=== PATIENT | female | born 1950 | race Caucasian/White ===

== ENCOUNTER 2019-06-27 10:02 | Outpatient (CLI) | payer MEDICARE, SELFPAY ==
--- NOTE | 2019-06-27 10:12 | MR_ITS ---
WS: [id number] MRI CERVICAL SPINE HISTORY: Neck pain COMPARISON: 06/27/2018 Mild RIGHT convex curvature the cervical spine. Mild disc desiccation and small osteophytes throughout the cervical spine. Signal within the cord is normal. Craniocervical junction, C1 and C2 relationship, odontoid process and soft tissues are normal. C2-C3: Normal. C3-C4: Very shallow central disc protrusion. No stenosis. C4-C5: Mild osteophytic ridging and annular disc bulging without stenosis. C5-C6: Annular disc bulging and osteophytic ridging and facet disease. There is a central shallow dis c protrusion. Mild LEFT foraminal stenosis. C6-C7: Mild osteophytic ridging and annular disc bulging. Moderate LEFT foraminal stenosis due to dis c osteophyte disease. There is a very shallow central disc protrusion. C7-T1: Mild annular disc bulging. Paraspinal soft tissue are normal. MR/MR cervical spin wo con* [id number] IMPRESSION: 1. Mild RIGHT convex curvature cervical spine. 2. Mild disc disease and osteophytosis throughout the cervical spine. 3. Moderate LEFT foraminal stenosis at C6-7 due to disc osteophyte disease. 4. Mild LEFT foraminal stenosis at C5-6. 5. Shallow central disc protrusion at C6-7 and C3-4. 6. Spondylitic changes have not significantly changed or progressed since the prior study.
--- NOTE | 2019-06-27 11:00 | XR_ITS ---
WS: [id number] Lateral views of cervical spine in the flexion, extension and neutral positions. 06/27/2019 Clinical Data: Neck pain Comparison: Lateral cervical spine, 06/27/2018. Findings: There is degenerative disc narrowing C5-C6 and C6-C7. There is anterior osteophyte formation from C4 through C7. There is posterior osteophyte formation at C5-C6 and C6-C7. In the neutral and flexion po sitions are is no subluxation or limitation of motion. On extension there is a slight posterior sublu xation of C3 on C4 and C4 on C5 of 0.2 cm which has not changed. No prevertebral soft tissue swelling is noted. No compression fractures are seen. XR/XR cervical spine fl/ex [id number] Impression: 1. Minimal posterior subluxation of 0.2 cm of C3 on C4 and C4 on C5 of 0.2 cm u nchanged. 2. Negative for limitation of motion on flexion or extension. 3. Osteoarthritic change and degenerative disc disease of the lower cervical sp ine.
--- NOTE | 2019-06-27 11:30 | XR_ITS ---
WS: [id number] Lumbar spine with flexion, extension, and neutral lateral, 06/27/2019 Clinical Data: Low back pain Comparison: Lumbar spine, 12/14/2018. Findings: No compression fractures are seen. No disc space narrowing is seen. Is limitation of motion on flexion and extension. No subluxation occurs on flexion or extension. Ther e is osteoarthritic change of the lumbar vertebral bodies from L1 through L4. There is calcification of the wall of the abdominal aorta but no aneurysm. There is an orthopedic screw which fixes the marielle ficial right acetabulum into the pelvis. There are clips in the upper abdomen from a cholecystectomy. XR/XR lumbar spine f/e only [id number] Impression: 1. Limitation motion on flexion and extension. 2. No subluxation on flexion or extension. 3. Osteoarthritis of all the lumbar vertebral bodies.
== END 2019-06-27 10:03 | disposition home or self-care (01) ==
LOC: RADWPI 10:04
PROVIDERS: Family Provider Internal Medicine; PCP Internal Medicine; Visit Provider Licensed Practical Nurse
DX: M54.5 Low back pain (principal); M47.816 Spondylosis without myelopathy or radiculopathy, lumbar region; M50.90 Cervical disc disorder, unspecified, unspecified cervical region; M48.02 Spinal stenosis, cervical region; M50.223 Other cervical disc displacement at C6-C7 level
CPT/HCPCS: 72040; 72120; 72141

== ENCOUNTER 2019-07-11 15:39 | Emergency (ER) | payer MEDICARE, SELFPAY ==
[2019-07-11 16:06] VITALS: BP 123/66; PULSE 70; RESP 18; TEMP 36.8; O2SAT 98; BMI 29.5
--- NOTE | 2019-07-11 16:14 | XR_ITS ---
WS: [id number] CHEST XRAY TECHNIQUE: Portable chest. CLINICAL INFORMATION: chest pain COMPARISON: January 21, 2018 FINDINGS: Heart: Normal cardiac silhouette. Lungs: Lungs are clear. No consolidation or pleural effusion. No acute pulmonary infiltrates. Bones: Chronic posterior rib fractures with callus formation. XR/XR chest 1V portable [id number] IMPRESSION: 1. No acute pulmonary infiltrates. Chronic emphysematous changes. 2. Chronic mid left posterior rib fractures with callus formation.
--- NOTE | 2019-07-11 16:15 | ECG_ITS ---
Measurements Intervals [place] Rate: 64 P: -15 HI: 142 QRS: -2 QRSD: 77 T: 11 QT: 409 QTc: 425 SINUS RHYTHM POSSIBLE INFERIOR MYOCARDIAL INFARCTION , PROBABLY OLD [30 ms Q WAVE IN II/aVF] Compared to ECG 01/21/2018 15:38:58 Myocardial infarct finding now present Electronically Signed On 07-11-2019 17:06:45 CDT by Elsie Keane M.D. [id number] f
--- NOTE | 2019-07-11 16:18 | ED_ITS ---
Documented by User: SOFI Barker 07/11/19 16:36 HPI - General Adult General: Chief complaint: General Medical Stated complaint: fever, epigastric pain Time Seen by Provider: 07/11/19 16:14 History of Present Illness: HPI narrative: Patient is a 69-year-old female with a past medical history of prior [place], GERD, CAD, hypertension, and hyperlipidemia that presents to the ED with epigastric/chest pain. Last night patient started feeling unwell and developed a low-grade fever. She went to bed and when she woke up she started having chest pain. Chest pain started while she was laying in her bed before she got up and moved around. It has not improved throughout the day or with rest. Patient took a Nitroglycerin this morning and that has not improved chest pain either. She did not take an aspirin today. Patient has GERD as well but states that this is not like her GERD symptoms. She states she is developed some shortness of breath today as well and also a dry cough. Denies any travel outside of [place] in the last month and denies any contact with known COVID positive patient. Associated symptoms: Reports chest pain; Deny dyspnea, headache(s), nausea, rash, palpitations or vomiting Review of Systems General: Reports: 10 or more systems reviewed and unremarkable except in HPI and below Const: Reports: fever; Denies: chills or fatigue Eyes: Denies: change in vision or eye discomfort ENMT: Denies: throat pain, painful swallowing, nasal discharge or nasal congestion Card: Reports: chest pain; Denies: palpitations, edema, swelling of feet/ankles, shortness of breath on exertion or shortness of breath when lying down Resp: Reports: non-productive cough; Denies: shortness of breath or productive cough GI: Denies: abdominal pain, nausea, vomiting, diarrhea, constipation or blood in stool : Denies: flank pain, painful urination or blood in urine Musc: Denies: neck pain, back pain or extremity swelling Skin/Breast: Denies: rash or new lesion Neuro: Denies: headache, numbness in extremities or weakness in extremities [facility] ED PFSH: Medical History CAD (coronary artery disease) Cervical disc disorder with myelopathy of mid-cervical region Essential (primary) hypertension GERD (gastroesophageal reflux disease) H/O malignant neoplasm of breast H/O methicillin resistant Staphylococcus aureus History of pulmonary embolism Hyperlipidemia Hypothyroidism, unspecified Intervertebral disc disorder with radiculopathy of lumbar region MARGARITA (obstructive sleep apnea) Spondylolisthesis, cervical region Surgical History History of repair of hiatal hernia S/P cataract extraction S/P cholecystectomy S/P hysterectomy 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 She does not appear to be in any acute respiratory distress or pain. Const: COMMON NORMALS: oriented x3 HENMT: COMMON NORMALS: normocephalic HEAD & SCALP: normocephalic MOUTH: oral and palatal mucosa normal THROAT: posterior oropharynx normal and uvula midline Eye: COMMON NORMALS: PERRL PUPIL: Yes PERRL Neck/C-Spine: COMMON NORMALS: supple GENERAL: Yes normal visual inspection Lymph: LYMPHATIC: no lymphadenopathy noted (no cervical lymphadenopathy noted) Resp: COMMON NORMALS: normal respiratory effort, no retractions, no use of accessory muscles and clear to auscultation bilaterally EFFORT & INSPECTION: Yes able to speak in complete sentences, No respiratory distress and No labored AUSCULTATION: clear to auscultation bilaterally Cardio: COMMON NORMALS: regular rate, regular rhythm, S1 normal heart sound, S2 normal heart sound, no gallops, no clicks, no murmurs and peripheral pulses 2+ throughout RATE: regular rate RHYTHM: regular rhythm HEART SOUNDS: S1 normal and S2 normal PERIPHERAL PULSES: pulses 2+ throughout GI: COMMON NORMALS: normal to inspection, nondistended, normoactive bowel sounds, soft to palpation, non-tender and no masses PALPATION: Yes soft : COMMON NORMALS: Yes no CVA tenderness BLADDER/KIDNEY EXAM: Yes no CVA tenderness Back/Pelvis: COMMON NORMALS: no CVA tenderness Extremity: COMMON NORMALS: normal to inspection and normal capillary refill Neuro: COMMON NORMALS: oriented x3 and moves all extremities Skin: COMMON NORMALS: no rashes or lesions noted GENERAL SKIN EXAM: no rashes or lesions noted and dry skin Course Vital Signs: Vital signs: Vital Signs Temperature 98.2 F 07/11/19 16:06 Pulse Rate 64 07/11/19 17:44 Respiratory Rate 18 07/11/19 16:06 Blood Pressure 110/76 07/11/19 17:44 Pulse Oximetry 93 07/11/19 17:44 [facility] - General Adult Lab Data: Labs: Lab Results 07/11/19 07/11/19 07/11/19 Range/Units 16:39 16:39 16:39 WBC 5.3 (4.0-10.0) 10^3/ uL RBC 3.85 L (4.1-5.3) 10^6/u L Hgb 11.9 (11.5-15.3) g/dL Hct 38.6 (37.0-47.0) % MCV 100.3 H (81-99) fL MCH 30.9 (28.0-34.0) pg MCHC 30.8 (30.0-36.0) g/dL RDW 13.0 (12.1-15.1) % Plt Count 201 (130-400) 10^3/c mm MPV 11.2 H (7.4-10.4) fL Neut % (Auto) 52.9 % Lymph % (Auto) 36.7 % Mills % (Auto) 7.9 % Eos % (Auto) 1.5 % Baso % (Auto) 0.8 % Neut # (Auto) 2.8 (1.8-7.7) 10^3/u L Lymph # (Auto) 2.0 (0.8-4.8) 10^3/u L Mills # (Auto) 0.4 (0.2-0.9) 10^3/u L Eos # (Auto) 0.1 (0.0-0.8) 10^3/u L Baso # (Auto) 0.0 (0.0-0.1) 10^3/u L Nucleated RBC % (a uto) 0 % Nucleated RBCs # 0.0 /100WBC Sodium 138 (136-145) mmol/L Potassium 4.8 (3.5-5.1) mmol/L Chloride 101 (98-107) mmol/L Carbon Dioxide 28 (22-29) mmol/L Anion Gap 13.8 (5-19) BUN 15 (8-23) mg/dL Creatinine 1.1 H (0.5-0.9) mg/dL GFR Calculation 49.4 L (90-130) mL/min Glucose 103 (65-115) mg/dL Calculated Osmolal ity 283 L (285-295) mOsm/k g Calcium 9.3 (8.5-10.5) mg/dL Total Bilirubin 0.5 (0.15-1.2) mg/dL AST 19 (0-32) U/L ALT 12 (0-33) U/L Alkaline Phosphata se 73 (35-105) IU/L Troponin T Baselin e 10 (0-10) ng/mL Troponin T 120 Min [place] (0-10) ng/mL Total Protein 6.9 (6.6-8.7) g/dL Albumin 4.0 (3.5-5.2) g/dL Globulin 2.9 (1.3-4.6) g/dL Influenza Type A A g (Negative) Influenza Type B A g (Negative) 07/11/19 07/11/19 Range/Units 16:54 18:31 WBC (4.0-10.0) 10^3/ uL RBC (4.1-5.3) 10^6/u L Hgb (11.5-15.3) g/dL Hct (37.0-47.0) % MCV (81-99) fL MCH (28.0-34.0) pg MCHC (30.0-36.0) g/dL RDW (12.1-15.1) % Plt Count (130-400) 10^3/c mm MPV (7.4-10.4) fL Neut % (Auto) % Lymph % (Auto) % Mills % (Auto) % Eos % (Auto) % Baso % (Auto) % Neut # (Auto) (1.8-7.7) 10^3/u L Lymph # (Auto) (0.8-4.8) 10^3/u L Mills # (Auto) (0.2-0.9) 10^3/u L Eos # (Auto) (0.0-0.8) 10^3/u L Baso # (Auto) (0.0-0.1) 10^3/u L Nucleated RBC % (a uto) % Nucleated RBCs # /100WBC Sodium (136-145) mmol/L Potassium (3.5-5.1) mmol/L Chloride (98-107) mmol/L Carbon Dioxide (22-29) mmol/L Anion Gap (5-19) BUN (8-23) mg/dL Creatinine (0.5-0.9) mg/dL GFR Calculation (90-130) mL/min Glucose (65-115) mg/dL Calculated Osmolal ity (285-295) mOsm/k g Calcium (8.5-10.5) mg/dL Total Bilirubin (0.15-1.2) mg/dL AST (0-32) U/L ALT (0-33) U/L Alkaline Phosphata se (35-105) IU/L Troponin T Baselin e (0-10) ng/mL Troponin T 120 [address] [place] 8.04 (0-10) ng/mL Total Protein (6.6-8.7) g/dL Albumin (3.5-5.2) g/dL Globulin (1.3-4.6) g/dL Influenza Type A A g Negative (Negative) Influenza Type B A g Negative (Negative) EKG Data^: EKG 2: Computer generated interpretation: Chest X-Ray 07/11/19 16:14 IMPRESSION: 1. No acute pulmonary infiltrates. Chronic emphysematous changes. 2. Chronic mid left posterior rib fractures with callus formation. Discharge Plan Discharge Patient Disposition: Home, Self-Care Clinical Impression: Colicky epigastric pain Condition: Stable Prescriptions: No Action cholecalciferol (vitamin D3) 50,000 unit capsule 50,000 unit PO ONCE RF: 0 clopidogrel [Plavix] 75 mg tablet 75 mg PO ONCE RF: 0 pramipexole 0.25 mg tablet 0.25 mg PO .at bedtime RF: 0 pantoprazole [Protonix] 40 mg tablet,delayed release (DR/EC) 40 mg PO BID RF: 0 loratadine [Allergy Relief (loratadine)] 10 mg tablet 10 mg PO ONCE RF: 0 levothyroxine 25 mcg capsule 25 mcg PO ONCE RF: 0 duloxetine [Cymbalta] 30 mg capsule,delayed release(DR/EC) 30 mg PO ONCE RF: 0 duloxetine [Cymbalta] 60 mg capsule,delayed release(DR/EC) 60 mg PO ONCE RF: 0 cholestyramine (with sugar) 4 gram powder 4 gm PO ONCE RF: 0 metoprolol succinate 25 mg capsule,sprinkle,ER 24hr 25 mg PO ONCE RF: 0 memantine [Namenda] 10 mg tablet 10 mg PO ONCE RF: 0 nitroglycerin [Nitrostat] 0.4 mg tablet, sublingual 0.4 mg SUBLINGUAL Q5M PRNRF: 0 Prevnar 13 (PF) 0.5 mL syringe 0.5 ml IM ONCE Qty: 1 RF: 0 amitriptyline 10 mg tablet 10 mg PO QDAY Qty: 90 RF: 3 mupirocin 2 % ointment See Rx Instructions .ROUTE BID Qty: 22 RF: 0 albuterol sulfate [ProAir HFA] 90 mcg/actuation HFA aerosol inhaler 2 puff INHALATION Q4H PRN (Reason: shortness of breath or wheezing) Qty: 18 RF: 0 simvastatin 20 mg tablet 20 mg PO ONCE Qty: 90 RF: 3 isosorbide mononitrate 30 mg tablet extended release 24 hr 15 mg PO BID 90 Days Qty: 90 RF: 3 trazodone 50 mg tablet 150 mg PO .at bedtime Qty: 90 RF: 0 buspirone 10 mg tablet 10 mg PO BID PRN (Reason: anxiety) Qty: 60 RF: 3 Discharge Orders: Discharge Order (Routine); Ordered 07/11/19 Ordered By: Delfino Martin Referrals: Mitchel Hamilton MD [Primary Care Provider] - Discharge Diet: Advance as tolerated Discharge Activity: Resume usual activity Patient Instructions: Gastroesophageal Reflux Disease (ED), Esophageal Spasm (ED) Activity Restrictions/Additional Instructions: Follow-up with medical provider as directed. Take medications as prescribed. Double Protonix dosage for the next few days return to the ER or your medical provider if condition worsens. Please read and understand discharge instructions. If any questions ask please. Coding Level of Care Code ED Receipt And Report Clerk for Chg Fwd Exam Comprehensive Documented by User: EDDIE Alcantara 07/11/19 19:01 HPI - General Adult General: Chief complaint: General Medical Stated complaint: fever, epigastric pain Time Seen by Provider: 07/11/19 16:14 PFSH ED PFSH: Medical History CAD (coronary artery disease) Cervical disc disorder with myelopathy of mid-cervical region Essential (primary) hypertension GERD (gastroesophageal reflux disease) H/O malignant neoplasm of breast H/O methicillin resistant Staphylococcus aureus History of pulmonary embolism Hyperlipidemia Hypothyroidism, unspecified Intervertebral disc disorder with radiculopathy of lumbar region MARGARITA (obstructive sleep apnea) Spondylolisthesis, cervical region Surgical History History of repair of hiatal hernia S/P cataract extraction S/P cholecystectomy S/P hysterectomy 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 S/P sclerotherapy of varicose veins Family History Mother CAD (coronary artery disease) Diabetes Hypertension Myocardial infarct Social History Smoking and tobacco status: never smoked Alcohol intake: never Household members: spouse Marital status: Current occupational status: retired History of recent travel: No Course Vital Signs: Vital signs: Vital Signs Temperature 98.2 F 07/11/19 16:06 Pulse Rate 64 07/11/19 17:44 Respiratory Rate 18 07/11/19 16:06 Blood Pressure 110/76 07/11/19 17:44 Pulse Oximetry 93 07/11/19 17:44 MDM - General Adult Lab Data: Labs: Lab Results 07/11/19 07/11/19 07/11/19 Range/Units 16:39 16:39 16:39 WBC 5.3 (4.0-10.0) 10^3/ uL RBC 3.85 L (4.1-5.3) 10^6/u L Hgb 11.9 (11.5-15.3) g/dL Hct 38.6 (37.0-47.0) % MCV 100.3 H (81-99) fL MCH 30.9 (28.0-34.0) pg MCHC 30.8 (30.0-36.0) g/dL RDW 13.0 (12.1-15.1) % Plt Count 201 (130-400) 10^3/c mm MPV 11.2 H (7.4-10.4) fL Neut % (Auto) 52.9 % Lymph % (Auto) 36.7 % Mills % (Auto) 7.9 % Eos % (Auto) 1.5 % Baso % (Auto) 0.8 % Neut # (Auto) 2.8 (1.8-7.7) 10^3/u L Lymph # (Auto) 2.0 (0.8-4.8) 10^3/u L Mills # (Auto) 0.4 (0.2-0.9) 10^3/u L Eos # (Auto) 0.1 (0.0-0.8) 10^3/u L Baso # (Auto) 0.0 (0.0-0.1) 10^3/u L Nucleated RBC % (a uto) 0 % Nucleated RBCs # 0.0 /100WBC Sodium 138 (136-145) mmol/L Potassium 4.8 (3.5-5.1) mmol/L Chloride 101 (98-107) mmol/L Carbon Dioxide 28 (22-29) mmol/L Anion Gap 13.8 (5-19) BUN 15 (8-23) mg/dL Creatinine 1.1 H (0.5-0.9) mg/dL GFR Calculation 49.4 L (90-130) mL/min Glucose 103 (65-115) mg/dL Calculated Osmolal ity 283 L (285-295) mOsm/k g Calcium 9.3 (8.5-10.5) mg/dL Total Bilirubin 0.5 (0.15-1.2) mg/dL AST 19 (0-32) U/L ALT 12 (0-33) U/L Alkaline Phosphata se 73 (35-105) IU/L Troponin T Baselin e 10 (0-10) ng/mL Troponin T 120 Min [place] (0-10) ng/mL Total Protein 6.9 (6.6-8.7) g/dL Albumin 4.0 (3.5-5.2) g/dL Globulin 2.9 (1.3-4.6) g/dL Influenza Type A A g (Negative) Influenza Type B A g (Negative) 07/11/19 07/11/19 Range/Units 16:54 18:31 WBC (4.0-10.0) 10^3/ uL RBC (4.1-5.3) 10^6/u L Hgb (11.5-15.3) g/dL Hct (37.0-47.0) % MCV (81-99) fL MCH (28.0-34.0) pg MCHC (30.0-36.0) g/dL RDW (12.1-15.1) % Plt Count (130-400) 10^3/c mm MPV (7.4-10.4) fL Neut % (Auto) % Lymph % (Auto) % Mills % (Auto) % Eos % (Auto) % Baso % (Auto) % Neut # (Auto) (1.8-7.7) 10^3/u L Lymph # (Auto) (0.8-4.8) 10^3/u L Mills # (Auto) (0.2-0.9) 10^3/u L Eos # (Auto) (0.0-0.8) 10^3/u L Baso # (Auto) (0.0-0.1) 10^3/u L Nucleated RBC % (a uto) % Nucleated RBCs # /100WBC Sodium (136-145) mmol/L Potassium (3.5-5.1) mmol/L Chloride (98-107) mmol/L Carbon Dioxide (22-29) mmol/L Anion Gap (5-19) BUN (8-23) mg/dL Creatinine (0.5-0.9) mg/dL GFR Calculation (90-130) mL/min Glucose (65-115) mg/dL Calculated Osmolal ity (285-295) mOsm/k g Calcium (8.5-10.5) mg/dL Total Bilirubin (0.15-1.2) mg/dL AST (0-32) U/L ALT (0-33) U/L Alkaline Phosphata se (35-105) IU/L Troponin T Baselin e (0-10) ng/mL Troponin T 120 [address] [place] 8.04 (0-10) ng/mL Total Protein (6.6-8.7) g/dL Albumin (3.5-5.2) g/dL Globulin (1.3-4.6) g/dL Influenza Type A A g Negative (Negative) Influenza Type B A g Negative (Negative) EKG Data^: EKG 2: EKG interpretation date: 07/11/19 EKG interpretation time: 19:00 Interpretation: Normal sinus rhythm 59 bpm could be a sinus bradycardia but she was 65 earlier [place] interval 144 ms QRS duration [address] segments look normal Computer generated interpretation: Chest X-Ray 07/11/19 16:14 IMPRESSION: 1. No acute pulmonary infiltrates. Chronic emphysematous changes. 2. Chronic mid left posterior rib fractures with callus formation. Discharge Plan Discharge Patient Disposition: Home, Self-Care Clinical Impression: Colicky epigastric pain Condition: Stable Prescriptions: No Action cholecalciferol (vitamin D3) 50,000 unit capsule 50,000 unit PO ONCE RF: 0 clopidogrel [Plavix] 75 mg tablet 75 mg PO ONCE RF: 0 pramipexole 0.25 mg tablet 0.25 mg PO .at bedtime RF: 0 pantoprazole [Protonix] 40 mg tablet,delayed release (DR/EC) 40 mg PO BID RF: 0 loratadine [Allergy Relief (loratadine)] 10 mg tablet 10 mg PO ONCE RF: 0 levothyroxine 25 mcg capsule 25 mcg PO ONCE RF: 0 duloxetine [Cymbalta] 30 mg capsule,delayed release(DR/EC) 30 mg PO ONCE RF: 0 duloxetine [Cymbalta] 60 mg capsule,delayed release(DR/EC) 60 mg PO ONCE RF: 0 cholestyramine (with sugar) 4 gram powder 4 gm PO ONCE RF: 0 metoprolol succinate 25 mg capsule,sprinkle,ER 24hr 25 mg PO ONCE RF: 0 memantine [Namenda] 10 mg tablet 10 mg PO ONCE RF: 0 nitroglycerin [Nitrostat] 0.4 mg tablet, sublingual 0.4 mg SUBLINGUAL Q5M PRNRF: 0 Prevnar 13 (PF) 0.5 mL syringe 0.5 ml IM ONCE Qty: 1 RF: 0 amitriptyline 10 mg tablet 10 mg PO QDAY Qty: 90 RF: 3 mupirocin 2 % ointment See Rx Instructions .ROUTE BID Qty: 22 RF: 0 albuterol sulfate [ProAir HFA] 90 mcg/actuation HFA aerosol inhaler 2 puff INHALATION Q4H PRN (Reason: shortness of breath or wheezing) Qty: 18 RF: 0 simvastatin 20 mg tablet 20 mg PO ONCE Qty: 90 RF: 3 isosorbide mononitrate 30 mg tablet extended release 24 hr 15 mg PO BID 90 Days Qty: 90 RF: 3 trazodone 50 mg tablet 150 mg PO .at bedtime Qty: 90 RF: 0 buspirone 10 mg tablet 10 mg PO BID PRN (Reason: anxiety) Qty: 60 RF: 3 Discharge Orders: Discharge Order (Routine); Ordered 07/11/19 Ordered By: Delfino Martin Referrals: Mitchel Hamilton MD [Primary Care Provider] - Discharge Diet: Advance as tolerated Discharge Activity: Resume usual activity Patient Instructions: Gastroesophageal Reflux Disease (ED), Esophageal Spasm (ED) Activity Restrictions/Additional Instructions: Follow-up with medical provider as directed. Take medications as prescribed. Double Protonix dosage for the next few days return to the ER or your medical provider if condition worsens. Please read and understand discharge instructions. If any questions ask please. Coding Level of Care Code ED Receipt And Report Clerk for Mary Kayg Fwd Exam Comprehensive
--- NOTE | 2019-07-11 16:47 | PC.NURSE ---
portable chest xray at bedside
[2019-07-11 16:48] LABS: Basophils % 0.8 %; Eosinophils # 0.1 10^3/uL (0.0-0.8); Eosinophils % 1.5 %; Hematocrit 38.6 % (37.0-47.0); Hemoglobin 11.9 g/dL (11.5-15.3); Lymphocytes % 36.7 %; Mean Corpuscular HGB Conc 30.8 g/dL (30.0-36.0); Mean Corpuscular Hemoglobin 30.9 pg (28.0-34.0); Mean Corpuscular Volume 100.3 fL (81-99); Mean Platelet Volume 11.2 fL (7.4-10.4); Monocytes # 0.4 10^3/uL (0.2-0.9); Monocytes % 7.9 %; Neutrophils # 2.8 10^3/uL (1.8-7.7); Neutrophils % 52.9 %; Nucleated Red Blood Cells % 0 %; Platelet Count 201 10^3/cmm (130-400); Red Blood Count 3.85 10^6/uL (4.1-5.3); White Blood Count 5.3 10^3/uL (4.0-10.0)
[2019-07-11] MEDS: aspirin 81 mg Chew Tablet 324 MG PO (16:53)
[2019-07-11 17:02] VITALS: BP 108/65; PULSE 66; O2SAT 93
[2019-07-11 17:05] LABS: Alanine Aminotransferase 12 U/L (0-33); Alkaline Phosphatase 73 IU/L (35-105); Anion Gap 13.8 (5-19); Aspartate Amino Transferase 19 U/L (0-32); Blood Urea Nitrogen 15 mg/dL (8-23); Calcium 9.3 mg/dL (8.5-10.5); Carbon Dioxide 28 mmol/L (22-29); Chloride 101 mmol/L (98-107); Globulin 2.9 g/dL (1.3-4.6); Glomerular Filtration Rate 49.4 mL/min (90-130); Glucose 103 mg/dL (65-115); Osmolality Calculated 283 mOsm/kg (285-295); Potassium 4.8 mmol/L (3.5-5.1); Sodium 138 mmol/L (136-145); Total Bilirubin 0.5 mg/dL (0.15-1.2); Total Protein 6.9 g/dL (6.6-8.7)
[2019-07-11 17:07] LABS: Troponin(5th) Baseline 10 ng/mL (0-10)
[2019-07-11 17:44] VITALS: BP 110/76; PULSE 64; O2SAT 93
[2019-07-11 17:56] LABS: Influenza A by IFA Negative (Negative); Influenza B by IFA Negative (Negative)
--- NOTE | 2019-07-11 18:15 | ECG_ITS ---
Measurements Intervals [place] Rate: 59 P: 5 [place]: 144 QRS: 26 QRSD: 81 T: 40 QT: 434 QTc: 432 SINUS BRADYCARDIA INTERPRETATION BASED ON A DEFAULT AGE OF 40 YEARS Compared to ECG 07/11/2019 16:46:39 Sinus rhythm no longer present Myocardial infarct finding no longer present Electronically Signed On 07-12-2019 10:02:21 CDT by Hema Anthony M.D. [id number]
[2019-07-11 18:54] LABS: Troponin 5 2HR 8.04 ng/mL (0-10)
[2019-07-11 19:05] LABS: Troponin 5 2HR Delta -1.96 ABS# (0-10)
[2019-07-11 19:09] VITALS: BP 140/94; PULSE 66; RESP 18; O2SAT 96
== END 2019-07-11 19:11 | disposition home or self-care (01) ==
PROVIDERS: Physician Assistant; Emergency Provider Nurse Practitioner Family; Family Provider Internal Medicine; PCP Internal Medicine
DX: K21.9 Gastro-esophageal reflux disease without esophagitis (principal); K22.4 Dyskinesia of esophagus; I25.10 Atherosclerotic heart disease of native coronary artery without angina pectoris; I10 Essential (primary) hypertension; E78.5 Hyperlipidemia, unspecified; E03.9 Hypothyroidism, unspecified; G47.33 Obstructive sleep apnea (adult) (pediatric); Z90.710 Acquired absence of both cervix and uterus; Z90.49 Acquired absence of other specified parts of digestive tract; Z86.14 Personal history of Methicillin resistant Staphylococcus aureus infection; Z85.3 Personal history of malignant neoplasm of breast
CPT/HCPCS: 12345; 36415; 71045; 80053; 84484; 85025; 87040; 87804; 93005; 99283; 99284; A9270

== ENCOUNTER → 2019-10-28 10:09 | Outpatient (BNVA) | payer MEDICARE, SELFPAY | PROVIDERS: Family Provider Internal Medicine; PCP Internal Medicine; Referring Provider Specialist; Visit Provider Anesthesiology Pain Medicine | DX: M51.17 Intervertebral disc disorders with radiculopathy, lumbosacral region (principal); M54.9 Dorsalgia, unspecified; M47.812 Spondylosis without myelopathy or radiculopathy, cervical region; M50.90 Cervical disc disorder, unspecified, unspecified cervical region; M62.838 Other muscle spasm; Z79.891 Long term (current) use of opiate analgesic | CPT/HCPCS: 99204; 99205 ==

== ENCOUNTER → 2019-11-24 10:50 | Outpatient (BNVA) | payer MEDICARE, SELFPAY | PROVIDERS: Family Provider Internal Medicine; PCP Internal Medicine; Visit Provider Anesthesiology Pain Medicine | DX: M50.90 Cervical disc disorder, unspecified, unspecified cervical region (principal); M54.12 Radiculopathy, cervical region; Z79.891 Long term (current) use of opiate analgesic | CPT/HCPCS: 62321; J1100 ==

== ENCOUNTER → 2019-12-16 09:56 | Outpatient (BNVA) | payer MEDICARE, SELFPAY | PROVIDERS: Family Provider Internal Medicine; PCP Internal Medicine; Visit Provider Anesthesiology Pain Medicine | DX: M51.16 Intervertebral disc disorders with radiculopathy, lumbar region (principal); M47.812 Spondylosis without myelopathy or radiculopathy, cervical region; M50.90 Cervical disc disorder, unspecified, unspecified cervical region; M62.838 Other muscle spasm; Z79.891 Long term (current) use of opiate analgesic | CPT/HCPCS: 99213; 99214 ==

== ENCOUNTER 2020-02-01 13:35 | Emergency (ER) | payer MEDICARE, SELFPAY ==
[2020-02-01 13:46] VITALS: BP 124/80; PULSE 83; RESP 14; TEMP 36.9; O2SAT 96; BMI 32.1
--- NOTE | 2020-02-01 16:29 | XRR_ITS ---
PROCEDURE INFORMATION: Exam: XR Chest, 1 View Exam date and time: 02/01/2020 4:46 PM Age: 69 years old Clinical indication: Chest pain; Type not specified TECHNIQUE: Imaging protocol: XR of the chest Views: 1 view. COMPARISON: CR XR chest 1V portable [id number] 07/11/2019 4:46 PM FINDINGS: Lungs: Visualized portions of the lungs are clear. Pleural space: Unremarkable. No pleural effusion. No pneumothorax. Heart/Mediastinum: Heart is within normal limits of size. Bones/joints: There are old fractures of the posterior left 6th and 7th ribs. XR/XR chest 1V portable [id number] IMPRESSION: No acute infiltrates. No significant change from 07/11/2015.
--- NOTE | 2020-02-01 16:29 | ECG_ITS ---
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
[2020-02-01 16:37] LABS: Basophils % 0.4 %; Eosinophils # 0.1 10^3/uL (0.0-0.8); Eosinophils % 1.6 %; Hematocrit 38.9 % (37.0-47.0); Hemoglobin 12.1 g/dL (11.5-15.3); Lymphocytes # 1.7 10^3/uL (0.8-4.8); Lymphocytes % 24.6 %; Mean Corpuscular HGB Conc 31.1 g/dL (30.0-36.0); Mean Corpuscular Hemoglobin 31.2 pg (28.0-34.0); Mean Corpuscular Volume 100.3 fL (81-99); Mean Platelet Volume 11.5 fL (7.4-10.4); Monocytes # 0.4 10^3/uL (0.2-0.9); Monocytes % 5.7 %; Neutrophils % 67.4 %; Nucleated Red Blood Cells % 0 %; Platelet Count 200 10^3/cmm (130-400); Red Blood Count 3.88 10^6/uL (4.1-5.3); White Blood Count 6.8 10^3/uL (4.0-10.0)
[2020-02-01 16:48] LABS: Alanine Aminotransferase 9 U/L (0-33); Albumin Level 3.9 g/dL (3.5-5.2); Alkaline Phosphatase 93 IU/L (35-105); Anion Gap 11.9 (5-19); Aspartate Amino Transferase 16 U/L (0-32); Blood Urea Nitrogen 8 mg/dL (8-23); Calcium 8.7 mg/dL (8.5-10.5); Carbon Dioxide 30 mmol/L (22-29); Chloride 103 mmol/L (98-107); Globulin 2.9 g/dL (1.3-4.6); Glomerular Filtration Rate 55.1 mL/min (90-130); Glucose 100 mg/dL (65-115); Lipase 13 U/L (13-60); Osmolality Calculated 290 mOsm/kg (285-295); Potassium 3.9 mmol/L (3.5-5.1); Sodium 141 mmol/L (136-145); Total Bilirubin 0.3 mg/dL (0.15-1.2); Total Protein 6.8 g/dL (6.6-8.7)
[2020-02-01 16:50] LABS: Troponin(5th) Baseline 10 ng/L (0-10)
[2020-02-01] MEDS: aspirin 81 mg Chew Tablet 324 MG PO (16:52)
[2020-02-01] MEDS: nitroglycerin 1 gm/inch oint Pkt 1 INCH TOPICAL (16:53)
--- NOTE | 2020-02-01 16:53 | ED_ITS ---
HPI - Chest Pain General: Chief Complaint: Chest Pain Stated Complaint: CP, R ARM PAIN X 3 DAYS, SOB Time Seen by Provider: 02/01/20 15:22 Source: patient and family () Mode of arrival: ambulatory Limitations: no limitations History of Present Illness: MD complaint: chest pain Pertinent past history: coronary artery disease and prior IN Onset (ago): day(s) (3) Timing of current episode: constant Prior episodes: No Onset: during rest Pain location: substernal Pain radiation: right arm Severity: moderate Quality: sharp Relieving factors: nitroglycerin (helped a little but not all the way) Exacerbating factors: nothing Associated symptoms: Reports nausea; Deny abdominal pain, diaphoresis, dyspnea, fever(s), leg edema, palpitations, sense of impending doom, syncope or vomiting Review of Systems General: Reports: 10 or more systems reviewed and unremarkable except in HPI and below Const: Denies: fever(s) or diaphoresis Eyes: Denies: change in vision or blurry vision ENMT: Denies: throat pain, enlarged tonsils, odynophagia, hoarseness, mouth pain or swelling of lips/tongue Card: Denies: palpitations or syncope Resp: Denies: dyspnea GI: Reports: nausea; Denies: abdominal pain or vomiting : Denies: flank pain, difficulty voiding, dysuria, urinary frequency, urinary urgency or urinary hesitancy Musc: Denies: neck pain, back pain or extremity swelling Skin/Breast: Denies: rash, pruritus or erythema Neuro: Reports: dizziness; Denies: headache(s), numbness in extremities or weakness in extremities Endo: Denies: polyuria, polydipsia or tired all the time PFSH ED PFSH: Medical History CAD (coronary artery disease) Cervical disc disorder with myelopathy of mid-cervical region Essential (primary) hypertension GERD (gastroesophageal reflux disease) H/O malignant neoplasm of breast H/O methicillin resistant Staphylococcus aureus History of pulmonary embolism Hyperlipidemia Hypothyroidism, unspecified Intervertebral disc disorder with radiculopathy of lumbar region MARGARITA (obstructive sleep apnea) Spondylolisthesis, cervical region Stenosis of cervical spine with myelopathy Surgical History History of repair of hiatal hernia S/P cataract extraction S/P cholecystectomy S/P hysterectomy S/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 placement S/P sclerotherapy of varicose veins Family History Mother CAD (coronary artery disease) Diabetes Hypertension Myocardial infarct Social History Smoking and tobacco status: never smoked Alcohol intake: never Household members: spouse Marital status: Current occupational status: retired History of recent travel: No Physical Exam Const: COMMON NORMALS: no acute distress, average body habitus, patient oriented x3, no limitations, healthy appearing, alert and well nourished HENMT: COMMON NORMALS: normocephalic, atraumatic and moist oral mucous membranes HEAD & SCALP: normocephalic and atraumatic Neck/C-Spine: COMMON NORMALS: no meningeal signs and no JVD Chest: COMMONS NORMALS: normal inspection of the chest and normal palpation of entire chest wall Resp: COMMON NORMALS: normal respiratory effort, No retractions, No use of accessory muscles, clear to auscultation bilaterally and percussion normal AUSCULTATION: clear to auscultation bilaterally PERCUSSION: percussion normal Cardio: COMMON NORMALS: no JVD, regular rate, regular rhythm, S1 normal heart sound present, S2 normal heart sound present, No gallops present (Cardio), No clicks present (Cardio), No murmurs present (Cardio), No rub (Cardio) and Peripheral pulses 2+ throughout RATE: regular rate RHYTHM: regular rhythm HEART SOUNDS: S1 normal heart sound present and S2 normal heart sound present PERIPHERAL PULSES: Peripheral pulses 2+ throughout GI: COMMON NORMALS: Normal to inspection, nondistended, normoactive bowel sounds present, Soft to palpation, non-tender, No hepatosplenomegaly present, no masses and no bruits PALPATION: Yes Soft to palpation and Yes No hepatosplenomegaly present Extremity: COMMON NORMALS: normal to inspection, full ROM, capillary refill normal, no calf tenderness and no pedal edema Neuro: COMMON NORMALS: patient oriented x3 SENSORIUM/ORIENTATION: Yes alert MENINGEAL SIGNS: Yes no meningeal signs Skin: COMMON NORMALS: no rashes or lesions noted, no wounds, turgor normal, no jaundice, no petechiae and no mottling GENERAL SKIN EXAM: no rashes or lesions noted and turgor normal Course Reevaluation(s): Reevaluation #1: Discussed her labs and imaging findings with her. Negative for acute findings. Advised that she probably will benefit from an outpatient stress test. She states that her licensed audiologist wants her to get a stress test but had not ordered it. Discussed that there are no acute findings and so she is safe to be discharged home. She voiced understanding and is in agreement with the plan Time: 18:55 Vital Signs: Vital signs: Vital Signs Temperature 98.4 F 02/01/20 13:46 Pulse Rate 80 02/01/20 20:05 Respiratory Rate 18 02/01/20 20:05 Blood Pressure 122/76 02/01/20 20:05 Pulse Oximetry 96 02/01/20 20:05 MDM - Chest Pain MDM Narrative: Medical decision making narrative: 69-year-old female patient who presents to the emergency department with chest pain. Heart score is 4 meaning she is moderate risk for Mace in the next 6 weeks. She is discharged home and an order was placed for an outpatient stress test to be done as soon as possible. She has chest pain free in the emergency department. Medical Records: Attestation: I reviewed the patient's medical records. Lab Data: Attestation: I reviewed the patient's lab results. Labs: Lab Results 02/01/20 02/01/20 02/01/20 Range/Units 16:07 16:07 16:07 WBC 6.8 (4.0-10.0) 10^3/ uL RBC 3.88 L (4.1-5.3) 10^6/u L Hgb 12.1 (11.5-15.3) g/dL Hct 38.9 (37.0-47.0) % MCV 100.3 H (81-99) fL MCH 31.2 (28.0-34.0) pg MCHC 31.1 (30.0-36.0) g/dL RDW 13.0 (12.1-15.1) % Plt Count 200 (130-400) 10^3/c mm MPV 11.5 H (7.4-10.4) fL Neut % (Auto) 67.4 % Lymph % (Auto) 24.6 % Ada % (Auto) 5.7 % Eos % (Auto) 1.6 % Baso % (Auto) 0.4 % Neut # (Auto) 4.60 (1.8-7.7) 10^3/u L Lymph # (Auto) 1.7 (0.8-4.8) 10^3/u L Ada # (Auto) 0.4 (0.2-0.9) 10^3/u L Eos # (Auto) 0.1 (0.0-0.8) 10^3/u L Baso # (Auto) 0.0 (0.0-0.1) 10^3/u L Nucleated RBC % (a uto) 0 % Nucleated RBCs # 0.0 /100WBC Sodium 141 (136-145) mmol/L Potassium 3.9 (3.5-5.1) mmol/L Chloride 103 (98-107) mmol/L Carbon Dioxide 30 H (22-29) mmol/L Anion Gap 11.9 (5-19) BUN 8 (8-23) mg/dL Creatinine 1.0 H (0.5-0.9) mg/dL GFR Calculation 55.1 L (90-130) mL/min Glucose 100 (65-115) mg/dL Calculated Osmolal ity 290 (285-295) mOsm/k g Calcium 8.7 (8.5-10.5) mg/dL Total Bilirubin 0.3 (0.15-1.2) mg/dL AST 16 (0-32) U/L ALT 9 (0-33) U/L Alkaline Phosphata se 93 (35-105) IU/L Troponin T Baselin e 10 (0-10) ng/L Troponin T 120 Min victoria (0-10) ng/L Delta Troponin T (0-10) ABS# Total Protein 6.8 (6.6-8.7) g/dL Albumin 3.9 (3.5-5.2) g/dL Globulin 2.9 (1.3-4.6) g/dL Lipase 13 (13-60) U/L 02/01/20 Range/Units 18:00 WBC (4.0-10.0) 10^3/ uL RBC (4.1-5.3) 10^6/u L Hgb (11.5-15.3) g/dL Hct (37.0-47.0) % MCV (81-99) fL MCH (28.0-34.0) pg MCHC (30.0-36.0) g/dL RDW (12.1-15.1) % Plt Count (130-400) 10^3/c mm MPV (7.4-10.4) fL Neut % (Auto) % Lymph % (Auto) % Ada % (Auto) % Eos % (Auto) % Baso % (Auto) % Neut # (Auto) (1.8-7.7) 10^3/u L Lymph # (Auto) (0.8-4.8) 10^3/u L Ada # (Auto) (0.2-0.9) 10^3/u L Eos # (Auto) (0.0-0.8) 10^3/u L Baso # (Auto) (0.0-0.1) 10^3/u L Nucleated RBC % (a uto) % Nucleated RBCs # /100WBC Sodium (136-145) mmol/L Potassium (3.5-5.1) mmol/L Chloride (98-107) mmol/L Carbon Dioxide (22-29) mmol/L Anion Gap (5-19) BUN (8-23) mg/dL Creatinine (0.5-0.9) mg/dL GFR Calculation (90-130) mL/min Glucose (65-115) mg/dL Calculated Osmolal ity (285-295) mOsm/k g Calcium (8.5-10.5) mg/dL Total Bilirubin (0.15-1.2) mg/dL AST (0-32) U/L ALT (0-33) U/L Alkaline Phosphata se (35-105) IU/L Troponin T Baselin e (0-10) ng/L Troponin T 120 Min victoria 8.94 (0-10) ng/L Delta Troponin T -1.06 L (0-10) ABS# Total Protein (6.6-8.7) g/dL Albumin (3.5-5.2) g/dL Globulin (1.3-4.6) g/dL Lipase (13-60) U/L Imaging Data^: CXR: Attestation: I personally reviewed and interpreted this imaging study as follows: Radiologist's impression: [address] [place] [address] XRay Report Signed Patient: Chato Belcher #: [id number] : 1Acct#:[id number] Age/Sex: 69 / FADM Date: 02/01/20 Loc: ERRoom/Bed: Attending Dr: Ordering Provider/Ordering MD: Eder Yee MD, [facility] Date of Service: 02/01/20 Procedure(s): XR chest 1V portable [id number] Accession Number(s): [id number] Report Number: [id number] PROCEDURE INFORMATION: Exam: XR Chest, 1 View Exam date and time: 02/01/2020 4:46 PM Age: 69 years old Clinical indication: Chest pain; Type not specified TECHNIQUE: Imaging protocol: XR of the chest Views: 1 view. COMPARISON: CR XR chest 1V portable [id number] 07/11/2019 4:46 PM FINDINGS: Lungs: Visualized portions of the lungs are clear. Pleural space: Unremarkable. No pleural effusion. No pneumothorax. Heart/Mediastinum: Heart is within normal limits of size. Bones/joints: There are old fractures of the posterior left 6th and 7th ribs. XR/XR chest 1V portable [id number] IMPRESSION: No acute infiltrates. No significant change from 07/11/2015. Dictated By:Sen Allen Signed By:Kyleigh Allenigned Date/Time:02/01/201707 DD/ EKG Data^: EKG 1: Attestation: I personally reviewed and interpreted this EKG as follows: EKG interpretation date: 02/01/20 EKG interpretation time: 16:50 Prior EKG tracings: not available for review Interpretation: Normal sinus rhythm. Heart rate 64 bpm. Q wave in leads III and aVF EKG 2: Attestation: I personally reviewed and interpreted this EKG as follows: EKG interpretation date: 02/01/20 EKG interpretation time: 18:44 Prior EKG tracings: available for review Interpretation: Normal sinus rhythm. Heart rate 68 beats per minutes. Q wave in 3 aVF. Unchanged from last EKG. Discharge Plan Discharge Patient Disposition: Home Clinical Impression: Chest pain Qualifiers: Chest pain type: unspecified Qualified Code(s): R07.9 - Chest pain, unspecified Condition: Stable Prescriptions: Continued nitroglycerin [Nitrostat] 0.4 mg tablet, sublingual 0.4 mg SUBLINGUAL Q5M PRN (Reason: Chest Pain) RF: 0 pantoprazole [Protonix] 40 mg tablet,delayed release (DR/EC) 40 mg PO BID Qty: 180 RF: 3 gabapentin 100 mg capsule 100 mg PO BID Qty: 60 RF: 0 tramadol 50 mg tablet 50 mg PO BID PRN (Reason: pain (scale score 7-10)) Qty: 60 RF: 0 buspirone 10 mg tablet 10 mg PO BID PRN (Reason: anxiety) Qty: 60 RF: 3 albuterol sulfate [ProAir HFA] 90 mcg/actuation HFA aerosol inhaler 2 puff INHALATION Q4H PRN (Reason: shortness of breath or wheezing) Qty: 18 RF: 3 memantine [Namenda] 10 mg tablet 10 mg PO QAM Qty: 90 RF: 3 levothyroxine 25 mcg capsule 25 mcg PO DAILY Qty: 90 RF: 1 clopidogrel [Plavix] 75 mg tablet 75 mg PO DAILY Qty: 30 RF: 3 duloxetine [Cymbalta] 30 mg capsule,delayed release(DR/EC) 30 mg PO DAILY Qty: 90 RF: 3 duloxetine [Cymbalta] 60 mg capsule,delayed release(DR/EC) 60 mg PO DAILY Qty: 90 RF: 3 Multiple Vitamins Tablet 1 tab PO DAILY RF: 0 aspirin 81 mg Tablet,Delayed Release (Dr/Ec) 81 mg PO PRN RF: 0 trazodone 50 mg tablet 150 mg PO BEDTIME RF: 0 isosorbide mononitrate 30 mg tablet extended release 24 hr 30 mg PO DAILY RF: 0 amitriptyline 10 mg tablet 10 mg PO DAILY RF: 0 simvastatin 20 mg tablet 20 mg PO DAILY RF: 0 pramipexole 0.25 mg tablet 0.25 mg PO BEDTIME RF: 0 metoprolol succinate 25 mg capsule,sprinkle,ER 24hr 25 mg PO DAILY RF: 0 Discharge Orders: Discharge Order (Routine); Ordered 02/01/20 Ordered By: Eder Yee Referrals: Mitchel Hamilton MD [Primary Care Provider] - 1-3 days Discharge Diet: Low Salt Discharge Activity: Increase activity as tolerated Patient Instructions: Chest Pain (ED) Activity Restrictions/Additional Instructions: Return for any new or worsening symptoms. Follow-up with your primary care provider within 3 days. You will be contacted by case management to schedule an outpatient stress test. Continue your home medications. Discharge Date/Time: 02/01/20 20:06 Coding Level of Care Code ED Dispatch Lead for Chg Fwd Exam Comprehensive
[2020-02-01 16:56] VITALS: BP 128/73; PULSE 73; RESP 17; O2SAT 96
--- NOTE | 2020-02-01 18:29 | ECG_ITS ---
[facility] Test Date: 2020-02-01 Pat Name: Dea Belcher Department: Room: Gender: Female Psychologist Experimental: : 1950 Requested By: Eder Yee I Order Number: [id number] Reading MD: TANESHA SCHERER Measurements Intervals [place] Rate: 68 P: 29 WI: 154 QRS: 3 QRSD: 91 T: 22 QT: 416 QTc: 445 Interpretive Statements SINUS RHYTHM Compared to ECG 02/01/2020 16:50:31 No significant changes Electronically Signed On 02-02-2020 20:16:28 GENERAL REPAIR MECHANIC by TANESHA SCHERER [id number] f
[2020-02-01 18:30] LABS: Troponin 5 2HR 8.94 ng/L (0-10)
[2020-02-01 18:35] LABS: Troponin 5 2HR Delta -1.06 ABS# (0-10)
[2020-02-01 20:05] VITALS: BP 122/76; PULSE 80; RESP 18; O2SAT 96
--- NOTE | 2020-02-03 10:08 | DCPLANNER ---
new car sales manager had message to schedule an outpatient stress test for patient. new car sales manager faxed order to centralized scheduling. new car sales manager will call for appointment information.
--- NOTE | 2020-02-12 08:05 | DCPLANNER ---
Patient has an outpatient stress test scheduled for Sunday, February 18, 2020 at 9:15, centralized scheduling will call patient with appointment information.
--- NOTE | 2020-03-03 15:17 | DCPLANNER ---
Patient had an out patient stress test scheduled for 20 - patient did attend stress test.
== END 2020-02-01 20:06 | disposition home or self-care (01) ==
PROVIDERS: Emergency Provider Family Medicine; PCP Internal Medicine
DX: R07.9 Chest pain, unspecified (principal); Z79.02 Long term (current) use of antithrombotics/antiplatelets; Z79.82 Long term (current) use of aspirin; I25.10 Atherosclerotic heart disease of native coronary artery without angina pectoris; I10 Essential (primary) hypertension; Z85.3 Personal history of malignant neoplasm of breast; E78.5 Hyperlipidemia, unspecified
CPT/HCPCS: 12345; 71045; 80053; 83690; 84484; 85025; 93005; 99283

== ENCOUNTER 2020-02-18 06:43 | Outpatient (CLI) | payer MEDICARE, SELFPAY ==
--- NOTE | 2020-02-18 06:54 | ECG_ITS ---
[facility] Test Date: 2020-02-18 Pat Name: Dea Belcher Department: Room: Gender: Female Developer Designer: : 1950 Requested By: Eder Yee I Order Number: [id number] Sarah MD: Iveth Savage M.D. Interpretive Statements NAME OF STUDY: LEXISCAN SESTAMIBI STRESS TEST INDICATION: Chest Pain PROCEDURE: At the baseline, the blood pressure was 152/77 mmHg, oxygen saturation 97% with a heart rate of 61 bpm. The electrocardiogram showed normal sinus rhythm, normal axis with normal ST and T's. The Lexiscan was infused over a period of 20 seconds. A total of 0.4 milligrams of Lexiscan was infused. The stress phase was continued for a total of 5 minutes. Heart rate at the end of the stress phase was 81 bpm, oxygen saturation 98% with a blood pressure of 140/77 mmHg. The EKG at the peak infusion revealed sinus rhythm with no significant ST-T wave changes. The study was terminated due to protocol completion. Sestamibi was injected 20 seconds after the Lexiscan infusion. Blood pressure at the end of the recovery phase was 146/80 mmHg, oxygen saturation 97% with a heart rate of 81 beats per minute. CONCLUSION: 1. Normal EKG response to LexiScan infusion. 2. No LexiScan induced chest pain or cardiac arrhythmia. 3. Normal blood pressure and heart rate response. 4. Sestamibi/sestamibi perfusion scan pending; see separate report. Electronically Signed On 02-18-2020 17:50:05 CADDY PACKER by Iveth Savage M.D. [id number]
--- NOTE | 2020-02-18 06:55 | NMCV_ITS ---
NM urszula perf SPECT r/s* [id number] Dea Belcehr Age: 69 Gender: F : 1950 Exam Date: 02/18/2020 07:42 Ordering Phys: Eder Yee MD [facility] [place]ologist: PRAVEENA Reynoso Exam Location: [facility] Indications: CHEST PAIN STRESS TEST Please see separate stress test report in [facility] for full findings IMAGE PROTOCOL Rest/Stress 1 Lexiscan Day Radiopharmaceutical Dose (mCi) Administration Site Administered by Rest: Tc-99m 10.9 IV PRAVEENA Shields Sestamibi Stress:Tc-99m 32.7 IV PRAVEENA Shields Sestamibi Rest: 18-Feb-2020 60 Discovery 630 Stress: 18-Feb-2020 30 Discovery 630 0.4mg Lexiscan. Images obtained in supine and prone position. SPECT RESULTS Technical Quality: Excellent Raw Data Analysis: Normal Image Corrections: No attenuation or motion correction applied Summed Stress Score: 0 Summed Rest Score: 2 Summed Difference Score: 0 PERFUSION FINDINGS Very small size perfusion abnormality of mild severity of apical lateral wall on rest images with improved tracer uptake on stress images. This is suggestive of attenuation artifact. FUNCTIONAL RESULTS (calculated via Gated SPECT) Stress Image LV EF (%): 91 Stress EDV (mL):44 TID: 0.82 Stress ESV (mL):4 FUNCTIONAL FINDINGS: The left ventricle is normal in size. Transient Ischemia Dilatation of 0.82. There is normal left ventricular systolic function. The left ventricular ejection fraction is hyperdynamic with a value of 91%. Left ventricular ejection fraction is overestimated due to small cavity size. There is normal left ventricular wall thickening. IMPRESSIONS 1. Myocardial perfusion imaging is normal. 2. Overall left ventricular systolic function is normal without regional wall motion abnormalities. 3. This study suggests a low likelihood of angiographically significant coronary artery disease. 4. When compared to previous sestamibi stress test dated 06/21/2018, there has been no change. Iveth Savage MD (Electronically Signed) Final Date: 18 February 2020 17:53 S
[2020-02-18 07:02] VITALS: BMI 29.2
[2020-02-18] MEDS: regadenoson 0.4 Mg/5 ml Syringe IVP (08:35)
[2020-02-18 08:47] VITALS: BP 146/80; PULSE 79
== END 2020-02-18 06:44 | disposition home or self-care (01) ==
LOC: CDL 06:47
PROVIDERS: PCP Internal Medicine; Visit Provider Family Medicine
DX: R07.9 Chest pain, unspecified (principal)
CPT/HCPCS: 78452; 93017; A9500; J2785

== ENCOUNTER 2020-07-11 13:02 | Emergency (ER) | payer MEDICARE, SELFPAY ==
[2020-07-11] VITALS (9 sets, daily range): BP systolic 143–192; BP diastolic 76–102; PULSE 72–87; RESP 16–20; O2SAT 93–100; BMI 30.2
--- NOTE | 2020-07-11 13:11 | XRR_ITS ---
PROCEDURE INFORMATION: Exam: XR Chest Exam date and time: 07/11/2020 1:21 PM Age: 70 years old Clinical indication: Chest pain; Additional info: Cp TECHNIQUE: Imaging protocol: XR of the chest. Views: 1 view. COMPARISON: CR XR chest 1V portable [id number] 02/01/2020 4:35 PM FINDINGS: Lungs: Unremarkable. No consolidation. Pleural spaces: Unremarkable. No pleural effusion. No pneumothorax. Heart/Mediastinum: Unremarkable. No cardiomegaly. Bones/joints: No acute findings. Minimally limited by overlying artifact. XR/XR chest 1V portable [id number] IMPRESSION: No acute findings.
--- NOTE | 2020-07-11 13:11 | ECG_ITS ---
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 Measurements Intervals Oliver Rate: 83 P: 29 RI: 153 QRS: -7 QRSD: 78 T: 22 QT: 396 QTc: 467 Interpretive Statements SINUS RHYTHM PROBABLE INFERIOR MYOCARDIAL INFARCTION , PROBABLY OLD [35 ms Q WAVE IN II/aVF] Compared to ECG 02/01/2020 18:44:48 Myocardial infarct finding now present Electronically Signed On 07-11-2020 15:28:48 CDT by Edison wOen M.D. [email or web address] [email or web address]/store/[id number]
--- NOTE | 2020-07-11 13:13 | W.ED.CHESTPA ---
HPI - Chest Pain General: Chief Complaint: Chest Pain Stated Complaint: CHEST PAIN Time Seen by Provider: 07/11/20 13:04 History of Present Illness: HPI narrative: Patient is a 70-year-old female who presents to the emergency department with substernal/epigastric pain. Symptoms started around noon and continues to be present. Pain radiates to her right arm only. No nausea or vomiting. No diaphoresis, no difficulty breathing. She denies any fever or cough. MD complaint: chest pain Pertinent past history: prior [place] and [employer] Onset (ago): hour(s) (5) Timing of current episode: constant Prior episodes: No Onset: during rest Pain location: substernal and epigastric Pain radiation: right shoulder Severity: severe Quality: sharp Relieving factors: nothing Exacerbating factors: nothing Associated symptoms: Reports nausea; Deny abdominal pain, diaphoresis, dyspnea, fever(s), leg edema, palpitations, sense of impending doom, syncope or vomiting Treatment prior to arrival: nitroglycerin Review of Systems General: Reports: 10 or more systems reviewed and unremarkable except in HPI and below Const: Denies: fever(s) or diaphoresis Card: Denies: palpitations or syncope Resp: Denies: dyspnea GI: Reports: nausea; Denies: abdominal pain or vomiting [facility] ED PFSH: Medical History (Updated 07/11/20 @ 17:52 by Eder Yee [place] [facility] [place] CAD (coronary artery disease) Cervical disc disorder with myelopathy of mid-cervical region Essential (primary) hypertension GERD (gastroesophageal reflux disease) H/O malignant neoplasm of breast H/O methicillin resistant Staphylococcus aureus History of pulmonary embolism Hyperlipidemia Hypothyroidism, unspecified Intervertebral disc disorder with radiculopathy of lumbar region MARGARITA (obstructive sleep apnea) Spondylolisthesis, cervical region Stenosis of cervical spine with myelopathy Surgical History History of repair of hiatal hernia S/P cataract extraction S/P cholecystectomy S/P hysterectomy 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 S/P sclerotherapy of varicose veins Family History Mother CAD (coronary artery disease) Diabetes Hypertension Myocardial infarct Social History Smoking and tobacco status: never smoked Alcohol intake: never Household members: spouse Marital status: Current occupational status: retired History of recent travel: No Physical Exam Const: COMMON NORMALS: no acute distress, average body habitus, patient oriented x3, no limitations, healthy appearing, alert and well nourished HENMT: COMMON NORMALS: normocephalic, atraumatic and moist oral mucous membranes HEAD & SCALP: normocephalic and atraumatic Neck/C-Spine: COMMON NORMALS: no meningeal signs and no JVD Chest: COMMONS NORMALS: normal inspection of the chest and normal palpation of entire chest wall Resp: COMMON NORMALS: normal respiratory effort, No retractions, No use of accessory muscles, clear to auscultation bilaterally and percussion normal AUSCULTATION: clear to auscultation bilaterally PERCUSSION: percussion normal Cardio: COMMON NORMALS: no JVD, regular rate, regular rhythm, S1 normal heart sound present, S2 normal heart sound present, No gallops present (Cardio), No clicks present (Cardio), No murmurs present (Cardio), No rub (Cardio) and Peripheral pulses 2+ throughout RATE: regular rate RHYTHM: regular rhythm HEART SOUNDS: S1 normal heart sound present and S2 normal heart sound present PERIPHERAL PULSES: Peripheral pulses 2+ throughout GI: COMMON NORMALS: Normal to inspection, nondistended, normoactive bowel sounds present, Soft to palpation, No hepatosplenomegaly present, no masses and no bruits PALPATION: Yes Soft to palpation, Yes Tenderness to palpation present (GI) (marked epigastric tenderness) and Yes No hepatosplenomegaly present Extremity: COMMON NORMALS: normal to inspection, full ROM, capillary refill normal, no calf tenderness and no pedal edema Neuro: COMMON NORMALS: patient oriented x3 SENSORIUM/ORIENTATION: Yes alert MENINGEAL SIGNS: Yes no meningeal signs Skin: COMMON NORMALS: no rashes or lesions noted, no wounds, turgor normal, no jaundice, no petechiae and no mottling GENERAL SKIN EXAM: no rashes or lesions noted and turgor normal Course Reevaluation(s): Reevaluation #1: Discussed her lab and imaging findings with her negative for acute findings. I believe her symptoms are secondary to acute gastritis. She already has a history of this and takes a proton pump inhibitor. Pain improved following a GI cocktail. We will therefore discharge her home with no new orders. She voiced understanding and is in agreement with the plan. Time: 17:51 Vital Signs: Vital signs: Vital Signs Pulse Rate 72 07/11/20 18:44 Respiratory Rate 16 07/11/20 18:44 Blood Pressure 174/76 07/11/20 18:44 Pulse Oximetry 94 07/11/20 18:44 MDM - Chest Pain MDM Narrative: Medical decision making narrative: This 70 yea old female presents with chest pain. Evaluation in the ED is consistent with acute gastritis. She is on a PPI and will not add any medications. She is discharged home with no new orders. She is to f/u with her PCP. Medical Records: Attestation: I reviewed the patient's medical records. Lab Data: Attestation: I reviewed the patient's lab results. Labs: Lab Results 07/11/20 07/11/20 07/11/20 Range/Units 13:20 13:20 13:20 WBC 5.7 (4.0-10.0) 10^3/ uL RBC 4.12 (4.1-5.3) 10^6/u L Hgb 13.0 (11.5-15.3) g/dL Hct 39.9 (37.0-47.0) % MCV 96.8 (81-99) fL MCH 31.6 (28.0-34.0) pg MCHC 32.6 (30.0-36.0) g/dL RDW 13.3 (12.1-15.1) % Plt Count 219 (130-400) 10^3/c mm MPV 11.0 H (7.4-10.4) fL Neut % (Auto) 66.9 % Lymph % (Auto) 25.1 % Kent % (Auto) 6.1 % Eos % (Auto) 1.2 % Baso % (Auto) 0.5 % Neut # (Auto) 3.84 (1.8-7.7) 10^3/u L Lymph # (Auto) 1.4 (0.8-4.8) 10^3/u L Kent # (Auto) 0.4 (0.2-0.9) 10^3/u L Eos # (Auto) 0.1 (0.0-0.8) 10^3/u L Baso # (Auto) 0.0 (0.0-0.1) 10^3/u L Nucleated RBC % (a uto) 0 % Nucleated RBCs # 0.0 /100WBC PT 14.00 (12.1-14.9) SECO NDS INR 1.04 (0.8-1.2) Specimen Type Sample Site ABG pH (7.35-7.45) ABG pCO2 (35-45) mmHg ABG pO2 (80.0-100.0) mmH g ABG HCO3 (22-26) mmol/L ABG O2 Saturation ABG Base Excess (-2.0-2.0) mmol/ L Christian Test A-a O2 Gradient Hematocrit (37-47) % Hgb O2 Saturation (95-100) % Carboxyhemoglobin (0.4-20.1) %THgb Methemoglobin (0.4-1.5) % Total Hemoglobin (12-16) g/dL Ionized Calcium (1.1-1.4) mmol/L O2 Delivery Device Foreclosure Field Inspector ID Sodium 142 (136-145) mmol/L Potassium 3.5 (3.5-5.1) mmol/L Chloride 106 (98-107) mmol/L Carbon Dioxide 25 (22-29) mmol/L Anion Gap 14.5 (5-19) BUN 9 (8-23) mg/dL Creatinine 0.8 (0.5-0.9) mg/dL GFR Calculation 71.1 L (90-130) mL/min Glucose 101 (65-115) mg/dL Calculated Osmolal ity 293 (285-295) mOsm/k g Calcium 8.4 L (8.5-10.5) mg/dL Total Bilirubin 0.7 (0.15-1.2) mg/dL AST 20 (0-32) U/L ALT 10 (0-33) U/L Alkaline Phosphata se 81 (35-105) IU/L Troponin T Baselin e (0-10) ng/L Troponin T 120 Min victoria (0-10) ng/L Delta Troponin T (0-10) ABS# NT-Pro-B Natriuret Pep 852 H (0-125) pg/mL Total Protein 6.4 L (6.6-8.7) g/dL Albumin 3.9 (3.5-5.2) g/dL Globulin 2.5 (1.3-4.6) g/dL Lipase 10 L (13-60) U/L 07/11/20 07/11/20 07/11/20 Range/Units 13:20 15:30 15:43 WBC (4.0-10.0) 10^3/ uL RBC (4.1-5.3) 10^6/u L Hgb (11.5-15.3) g/dL Hct (37.0-47.0) % MCV (81-99) fL MCH (28.0-34.0) pg MCHC (30.0-36.0) g/dL RDW (12.1-15.1) % Plt Count (130-400) 10^3/c mm MPV (7.4-10.4) fL Neut % (Auto) % Lymph % (Auto) % Kent % (Auto) % Eos % (Auto) % Baso % (Auto) % Neut # (Auto) (1.8-7.7) 10^3/u L Lymph # (Auto) (0.8-4.8) 10^3/u L Kent # (Auto) (0.2-0.9) 10^3/u L Eos # (Auto) (0.0-0.8) 10^3/u L Baso # (Auto) (0.0-0.1) 10^3/u L Nucleated RBC % (a uto) % Nucleated RBCs # /100WBC PT (12.1-14.9) SECO NDS INR (0.8-1.2) Specimen Type Arterial Sample Site Radial, left ABG pH 7.49 H (7.35-7.45) ABG pCO2 38.8 (35-45) mmHg ABG pO2 151.0 H (80.0-100.0) mmH g ABG HCO3 29.7 H (22-26) mmol/L ABG O2 Saturation 99.8 ABG Base Excess 5.9 H (-2.0-2.0) mmol/ L Christian Test Pos A-a O2 Gradient Not Reportable Hematocrit 39.7 (37-47) % Hgb O2 Saturation 98.3 (95-100) % Carboxyhemoglobin 0.8 (0.4-20.1) %THgb Methemoglobin 0.8 (0.4-1.5) % Total Hemoglobin 13.0 (12-16) g/dL Ionized Calcium 1.2 (1.1-1.4) mmol/L O2 Delivery Device Nc Foreclosure Field Inspector ID Cak Sodium 143.0 (136-145) mmol/L Potassium 4.2 (3.5-5.1) mmol/L Chloride (98-107) mmol/L Carbon Dioxide (22-29) mmol/L Anion Gap (5-19) BUN (8-23) mg/dL Creatinine (0.5-0.9) mg/dL GFR Calculation (90-130) mL/min Glucose 100.0 (65-115) mg/dL Calculated Osmolal ity (285-295) mOsm/k g Calcium (8.5-10.5) mg/dL Total Bilirubin (0.15-1.2) mg/dL AST (0-32) U/L ALT (0-33) U/L Alkaline Phosphata se (35-105) IU/L Troponin T Baselin e 14 H (0-10) ng/L Troponin T 120 Min victoria 13.71 H (0-10) ng/L Delta Troponin T -0.29 L (0-10) ABS# NT-Pro-B Natriuret Pep (0-125) pg/mL Total Protein (6.6-8.7) g/dL Albumin (3.5-5.2) g/dL Globulin (1.3-4.6) g/dL Lipase (13-60) U/L Imaging Data^: CTA Chest: Attestation: I personally reviewed and interpreted this imaging study as follows: Radiologist's impression: [address] [place] [address] CT Scan Report Signed Patient: Chato Belcher #: [id number] : 1Acct#:[id number] Age/Sex: 70 / FADM Date: 07/11/20 Loc: ERRoom/Bed: Attending Dr: Ordering Provider/Ordering MD: Eder Yee [place] [facility] [place] of Service: 07/11/20 Procedure(s): CT angio chest PE protcl [id number] Accession Number(s): [id number] Report Number: [id number] PROCEDURE INFORMATION: Exam: CTA Chest With Contrast Exam date and time: 07/11/2020 4:35 PM Age: 70 years old Clinical indication: Right-sided chest pain; Patient HX: C/O R cp w hypoxia TECHNIQUE: Imaging protocol: Computed tomographic angiography of the chest with contrast. 3D rendering (Not supervised by radiologist): MIP and/or 3D reconstructed images were created by the technologist. Radiation optimization: All CT scans at this facility use at least one of these dose optimization techniques: automated exposure control; mA and/or kV adjustment per patient size (includes targeted exams where dose is matched to clinical indication); or iterative reconstruction. Contrast material: OMNI 350; Contrast volume: 56 ml; Contrast route: INTRAVENOUS (IV); COMPARISON: CTA Chest-Pulmonary Emb [id number] 01/17/2017 6:29 PM RADIATION DOSE METRICS: Total DLP (mGy-cm): 449.17 FINDINGS: Pulmonary arteries: No pulmonary emboli. Aorta: No aortic aneurysm. No aortic dissection. Lungs: Unremarkable. No consolidation. No masses. Pleural spaces: Unremarkable. No pneumothorax. No pleural effusion. Heart: No cardiomegaly. No pericardial effusion. Lymph nodes: No significant adenopathy. Bones/joints: No acute findings. 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 Soft tissues: Unremarkable. CT/CT angio chest PE protcl [id number] IMPRESSION: No acute findings. Radiation Dose CTDIVOL = (mGy): DLP = 449.17 (mGy-cm) Dictated By:Joseph Martínez MD Signed By:Joseph Martínez MDSigned Date/Time:07/11/201705 DD/ 04 CXR: Attestation: I personally reviewed and interpreted this imaging study as follows: Radiologist's impression: [employer] [address] XRay Report Signed Patient: Chato Belcher #: [id number] : 1950cct#:[id number] Age/Sex: 70 / FADM Date: 07/11/20 Loc: ERRoom/Bed: Attending Dr: Ordering Provider/Ordering MD: Eder Yee [place], [facility] [place] of Service: 07/11/20 Procedure(s): XR chest 1V portable [id number] Accession Number(s): [id number] Report Number: [id number] PROCEDURE INFORMATION: Exam: XR Chest Exam date and time: 07/11/2020 1:21 PM Age: 70 years old Clinical indication: Chest pain; Additional info: Cp TECHNIQUE: Imaging protocol: XR of the chest. Views: 1 view. COMPARISON: CR XR chest 1V portable [id number] 02/01/2020 4:35 PM FINDINGS: Lungs: Unremarkable. No consolidation. Pleural spaces: Unremarkable. No pleural effusion. No pneumothorax. Heart/Mediastinum: Unremarkable. No cardiomegaly. Bones/joints: No acute findings. Minimally limited by overlying artifact. XR/XR chest 1V portable [id number] IMPRESSION: No acute findings. Dictated By:Joseph Martínez MD Signed By:Joseph Martínez MDSigned Date/Time:07/11/201411 DD/ 09 EKG Data^: EKG 1: Attestation: I personally reviewed and interpreted this EKG as follows: EKG interpretation date: 07/11/20 EKG interpretation time: 13:08 Prior EKG tracings: not available for review Interpretation: Sinus rhythm. Heart rate 83 bpm. Q waves in leads III and aVF. No ST changes. Discharge Plan Discharge Patient Disposition: Home Clinical Impression: Gastritis Qualifiers: Gastritis type: unspecified gastritis Chronicity: acute Gastritis bleeding: without bleeding Qualified Code(s): K29.00 - Acute gastritis without bleeding Condition: Stable Prescriptions: Continued nitroglycerin [Nitrostat] 0.4 mg tablet, sublingual 0.4 mg SUBLINGUAL Q5M PRN (Reason: Chest Pain) RF: 0 tramadol 50 mg tablet 50 mg PO BID PRN (Reason: pain (scale score 7-10)) Qty: 60 RF: 0 buspirone 10 mg tablet 10 mg PO BID PRN (Reason: anxiety) Qty: 60 RF: 3 albuterol sulfate [ProAir HFA] 90 mcg/actuation HFA aerosol inhaler 2 puff INHALATION Q4H PRN (Reason: shortness of breath or wheezing) Qty: 18 RF: 3 duloxetine [Cymbalta] 60 mg capsule,delayed release(DR/EC) 60 mg PO DAILY Qty: 90 RF: 3 multivitamin [Multiple Vitamins] Tablet 1 tab PO DAILY@0600 RF: 0 amitriptyline 10 mg tablet 10 mg PO DAILY@0600 RF: 0 Vitamin B-12 2,500 mcg Tablet, Sublingual 2,500 mcg SUBLINGUAL DAILY@0600 RF: 0 Move Free [employer] 750 mg-100 mg- 1.65 mg-108 mg Tablet 1 tab PO DAILY@0600 RF: 0 trazodone 50 mg tablet 150 mg PO BEDTIME@1999 RF: 0 isosorbide mononitrate 30 mg tablet extended release 24 hr 30 mg PO BID@0600,1800 RF: 0 Plavix 75 mg tablet 75 mg PO DAILY@0600 RF: 0 Protonix 40 mg tablet,delayed release (DR/EC) 40 mg PO BID@0600,1800 RF: 0 simvastatin 20 mg tablet 20 mg PO DAILY@0600 RF: 0 pramipexole 0.25 mg tablet 0.25 mg PO BEDTIME@1999 RF: 0 gabapentin 100 mg capsule 100 mg PO BID@0600,1800 RF: 0 metoprolol succinate 25 mg tablet extended release 24 hr 25 mg PO DAILY@0600 RF: 0 Namenda 10 mg tablet 10 mg PO DAILY@0600 RF: 0 Cymbalta 30 mg capsule,delayed release(DR/EC) 30 mg PO DAILY@0600 RF: 0 levothyroxine 25 mcg capsule 25 mcg PO DAILY@0600 RF: 0 Discharge Orders: Discharge ED (Routine); Ordered 07/11/20 Ordered By: Eder Yee Referrals: Mitchel Hamilton MD [Primary Care Provider] - 1-3 days Discharge Diet: As Directed Discharge Activity: Increase activity as tolerated Patient Instructions: Gastritis (ED), Diet for Ulcers and Gastritis (ED) Activity Restrictions/Additional Instructions: Return for any new or worsening symptoms. Follow-up with your primary care provider within 3 days. Continue home medications as prescribed. Consume the diet as advised. Coding Level of Care Code ED Conduit Installer for Chg Fwd Exam Comprehensive
[2020-07-11] MEDS: aspirin 81 mg Chew Tablet 324 MG PO (13:29)
[2020-07-11] MEDS: lidocaine 2% viscous 15 ML, aluminum-mag hydrox-simethicon 30 ML, sucralfate oral liq 1 GM PO (13:29)
[2020-07-11 13:30] LABS: Basophils % 0.5 %; Eosinophils # 0.1 10^3/uL (0.0-0.8); Eosinophils % 1.2 %; Hematocrit 39.9 % (37.0-47.0); Lymphocytes # 1.4 10^3/uL (0.8-4.8); Lymphocytes % 25.1 %; Mean Corpuscular HGB Conc 32.6 g/dL (30.0-36.0); Mean Corpuscular Hemoglobin 31.6 pg (28.0-34.0); Mean Corpuscular Volume 96.8 fL (81-99); Monocytes # 0.4 10^3/uL (0.2-0.9); Monocytes % 6.1 %; Neutrophils # 3.84 10^3/uL (1.8-7.7); Neutrophils % 66.9 %; Nucleated Red Blood Cells % 0 %; Platelet Count 219 10^3/cmm (130-400); Red Blood Count 4.12 10^6/uL (4.1-5.3); Red Cell Distribution Width 13.3 % (12.1-15.1); White Blood Count 5.7 10^3/uL (4.0-10.0)
[2020-07-11 13:47] LABS: INR 1.04 (0.8-1.2)
[2020-07-11 13:53] LABS: Troponin(5th) Baseline 14 ng/L (0-10)
[2020-07-11 14:09] LABS: Alanine Aminotransferase 10 U/L (0-33); Albumin Level 3.9 g/dL (3.5-5.2); Alkaline Phosphatase 81 IU/L (35-105); Anion Gap 14.5 (5-19); Aspartate Amino Transferase 20 U/L (0-32); Blood Urea Nitrogen 9 mg/dL (8-23); Calcium 8.4 mg/dL (8.5-10.5); Carbon Dioxide 25 mmol/L (22-29); Chloride 106 mmol/L (98-107); Globulin 2.5 g/dL (1.3-4.6); Glomerular Filtration Rate 71.1 mL/min (90-130); Glucose 101 mg/dL (65-115); Lipase 10 U/L (13-60); NT Pro B Type Natriuretic Pept 852 pg/mL (0-125); Osmolality Calculated 293 mOsm/kg (285-295); Potassium 3.5 mmol/L (3.5-5.1); Sodium 142 mmol/L (136-145); Total Bilirubin 0.7 mg/dL (0.15-1.2); Total Protein 6.4 g/dL (6.6-8.7)
--- NOTE | 2020-07-11 15:20 | CTR_ITS ---
PROCEDURE INFORMATION: Exam: CTA Chest With Contrast Exam date and time: 07/11/2020 4:35 PM Age: 70 years old Clinical indication: Right-sided chest pain; Patient HX: C/O R cp w hypoxia TECHNIQUE: Imaging protocol: Computed tomographic angiography of the chest with contrast. 3D rendering (Not supervised by radiologist): MIP and/or 3D reconstructed images were created by the technologist. Radiation optimization: All CT scans at this facility use at least one of these dose optimization techniques: automated exposure control; mA and/or kV adjustment per patient size (includes targeted exams where dose is matched to clinical indication); or iterative reconstruction. Contrast material: OMNI 350; Contrast volume: 56 ml; Contrast route: INTRAVENOUS (IV); COMPARISON: CTA Chest-Pulmonary Emb [id number] 01/17/2017 6:29 PM RADIATION DOSE METRICS: Total DLP (mGy-cm): 449.17 FINDINGS: Pulmonary arteries: No pulmonary emboli. Aorta: No aortic aneurysm. No aortic dissection. Lungs: Unremarkable. No consolidation. No masses. Pleural spaces: Unremarkable. No pneumothorax. No pleural effusion. Heart: No cardiomegaly. No pericardial effusion. Lymph nodes: No significant adenopathy. Bones/joints: No acute findings. 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 Soft tissues: Unremarkable. CT/CT angio chest PE protcl [id number] IMPRESSION: No acute findings. Radiation Dose CTDIVOL = (mGy): DLP = 449.17 (mGy-cm)
[2020-07-11 15:41] LABS: ABG PCO2 38.8 mmHg (35-45); ABG PH Result 7.49 (7.35-7.45); Arterial Blood Gas Hematocrit 39.7 % (37-47); Base Excess ABG 5.9 mmol/L (-2.0-2.0); Blood Gas Allen Test Pos; Blood Gas Operator Identificat CAK; Blood Gas Sample Site Radial, left; Blood Gas Sample Type Arterial; Carboxyhemoglobin 0.8 %THgb (0.4-20.1); HCO3 ABG 29.7 mmol/L (22-26); HGB O2 Sat 98.3 % (95-100); Ionized Calcium Level - ABG 1.2 mmol/L (1.1-1.4); Methemoglobin 0.8 % (0.4-1.5); Oxygen Device NC; Oxygen Saturation ABG 99.8; Potassium Level - ABG 4.2 mmol/L (3.5-5.0)
--- NOTE | 2020-07-11 16:16 | PC.NURSE ---
patient c/o tightness to chest, stated felt better at this time
[2020-07-11 16:28] LABS: Troponin 5 2HR 13.71 ng/L (0-10)
[2020-07-11 16:44] LABS: Troponin 5 2HR Delta -0.29 ABS# (0-10)
[2020-07-11] MEDS: iohexol 350 mg/mL 100 mL Btl IV (16:47)
--- NOTE | 2020-07-11 17:15 | PC.NURSE ---
Md awared BP, no new order received at this time. will continue to monitor
[2020-07-11] MEDS: labetalol 5 mg/mL SDV 20mL IVP (17:52)
== END 2020-07-11 18:46 | disposition home or self-care (01) ==
PROVIDERS: Emergency Provider Family Medicine; PCP Internal Medicine
DX: K29.00 Acute gastritis without bleeding (principal); Z79.02 Long term (current) use of antithrombotics/antiplatelets; I25.10 Atherosclerotic heart disease of native coronary artery without angina pectoris; I10 Essential (primary) hypertension; Z85.3 Personal history of malignant neoplasm of breast; E78.5 Hyperlipidemia, unspecified
CPT/HCPCS: 36415; 36600; 71045; 71275; 80051; 80053; 82330; 82805; 83690; 83880; 84484; 85025; 85610; 93005; 96374; 99284; J3490; Q9967

== ENCOUNTER 2020-12-14 09:02 | Outpatient (CLI) | payer MEDICARE, SELFPAY ==
--- NOTE | 2020-12-14 09:30 | MM_ITS ---
WS: [id number] BILATERAL DIGITAL DIAGNOSTIC MAMMOGRAM MAMMOGRAPHY WITH CAD CLINICAL INFORMATION: Breast mass-very painful COMPARISON: TECHNIQUE: Bilateral CC, MLO, and ML views. FINDINGS: The breasts are composed of heterogeneous fibroglandular density, which can limit the detection of sm all underlying mass lesions. Palpable marker upper outer left breast with dense underlying nodular ir regular breast tissue. This persists on the spot compression views. This is progressed since 2019. Ul trasound is pending. Right breast is unremarkable and unchanged. Punctate and lucent centered calcifications. ULTRASOUND BREAST LEFT TECHNIQUE: Ultrasound left breast focused area of concern. CLINICAL INFORMATION: Breast mass-very painful FINDINGS: Ultrasound left breast at the 3:00 to 6:00 position. Hypoechoic densely shadowing irregular lesion wi th ill-defined margins. This appears to be at least partially intraductal with branching and associat ed vascularity. Findings are suspicious for neoplasm and recommend further evaluation with ultrasound -guided biopsy. MM/[place] [id number] IMPRESSION: BI-RADS: 4-Suspicious Finding-Biopsy Should Be Considered FOLLOW UP: US Guided Biopsy Recommended RECOMMEND ULTRASOUND-GUIDED BIOPSY LEFT BREAST
--- NOTE | 2020-12-14 10:15 | US_ITS ---
WS: [id number] BILATERAL DIGITAL DIAGNOSTIC MAMMOGRAM MAMMOGRAPHY WITH CAD CLINICAL INFORMATION: Breast mass-very painful COMPARISON: TECHNIQUE: Bilateral CC, MLO, and ML views. FINDINGS: The breasts are composed of heterogeneous fibroglandular density, which can limit the detection of sm all underlying mass lesions. Palpable marker upper outer left breast with dense underlying nodular ir regular breast tissue. This persists on the spot compression views. This is progressed since 2019. Ul trasound is pending. Right breast is unremarkable and unchanged. Punctate and lucent centered calcifications. ULTRASOUND BREAST LEFT TECHNIQUE: Ultrasound left breast focused area of concern. CLINICAL INFORMATION: Breast mass-very painful FINDINGS: Ultrasound left breast at the 3:00 to 6:00 position. Hypoechoic densely shadowing irregular lesion wi th ill-defined margins. This appears to be at least partially intraductal with branching and associat ed vascularity. Findings are suspicious for neoplasm and recommend further evaluation with ultrasound -guided biopsy. US/US breast complete [id number] IMPRESSION: BI-RADS: 4-Suspicious Finding-Biopsy Should Be Considered FOLLOW UP: US Guided Biopsy Recommended RECOMMEND ULTRASOUND-GUIDED BIOPSY LEFT BREAST
== END 2020-12-14 09:03 | disposition home or self-care (01) ==
LOC: RADSHAW 09:08
PROVIDERS: PCP Internal Medicine; Visit Provider Nurse Practitioner Family
DX: N63.25 Unspecified lump in the left breast, overlapping quadrants (principal)
CPT/HCPCS: 76641; 77066

== ENCOUNTER 2020-12-22 08:22 | Outpatient (CLI) | payer MEDICARE, SELFPAY ==
--- NOTE | 2020-12-22 08:00 | US_ITS ---
WS: [id number] ULTRASOUND-GUIDED LEFT BREAST BIOPSY CLINICAL INFORMATION: Breast Mass COMPARISON: None. FINDINGS: The procedure including risks, benefits, and complications were discussed with the patient who agreed to proceed. Using sterile technique patient was prepped and draped in the usual sterile fashion. Aft er 1% lidocaine utilizing real-time ultrasound guidance 5 14-gauge cores were obtained of the left br east lesion at the 1 o'clock position. Subsequently a titanium clip was placed in the biopsy cavity. No immediate complications. Next, after 1% lidocaine utilizing real-time ultrasound guidance 5 14-gauge cores were obtained of th e left breast lesion at the 3 o'clock position. Subsequently a titanium clip was placed in the biopsy cavity. No immediate complications. Pathology demonstrates A. Breast, left, 1:00, ultrasound-guided biopsy: -Negative for malignancy. B. Breast, left, 3:00, ultrasound-guided biopsy: -Mammary duct ectasia with foamy histiocytes and periductal inflammation, fibrosis and hemorrhage. -No malignancy identified. US/[place] [id number] IMPRESSION: 1. Uncomplicated ultrasound-guided left breast biopsy at the 1:00 and 3:00 pos itions. 2. No malignancy was identified at the 1:00 or 3:00 positions 3. Recommend 6 month follow-up left diagnostic mammography and ultrasound to c onfirm stability. BI-RADS: 2-Benign FOLLOW UP: 6 Month Follow-up
== END 2020-12-22 08:23 | disposition home or self-care (01) ==
LOC: RAD 08:31
PROVIDERS: PCP Internal Medicine; Visit Provider Nurse Practitioner Family
DX: N63.25 Unspecified lump in the left breast, overlapping quadrants (principal); N60.42 Mammary duct ectasia of left breast
CPT/HCPCS: 19083; 19084; 88305

== ENCOUNTER → 2021-06-09 10:10 | Outpatient (BNVA) | payer MEDICARE, SELFPAY | PROVIDERS: PCP Internal Medicine; Visit Provider Nurse Practitioner Family | DX: E03.9 Hypothyroidism, unspecified (principal); I10 Essential (primary) hypertension; I25.10 Atherosclerotic heart disease of native coronary artery without angina pectoris; R41.89 Other symptoms and signs involving cognitive functions and awareness | CPT/HCPCS: 80053; 80061; 82607; 82746; 84443 ==

== ENCOUNTER → 2021-06-20 15:07 | Outpatient (BNVA) | payer MEDICARE, SELFPAY | PROVIDERS: PCP Internal Medicine; Visit Provider Internal Medicine Cardiovascular Disease | DX: E03.9 Hypothyroidism, unspecified (principal); I10 Essential (primary) hypertension; I25.10 Atherosclerotic heart disease of native coronary artery without angina pectoris | CPT/HCPCS: 99214; 99215 ==

== ENCOUNTER 2021-07-19 07:41 | Outpatient (CLI) | payer MEDICARE, SELFPAY ==
--- NOTE | 2021-07-19 07:55 | MM_ITS ---
WS: [id number] DIAGNOSTIC LEFT DIGITAL MAMMOGRAM WITH CAD and 3-D. LEFT breast ultrasound, limited. HISTORY: N63.20 - Unspecified lump in the left breast, unspecified..., 6 month follow-up biopsy. COMPARISON: 12/14/2020, 12/20/2018, 12/17/2017 Technique: CC, MLO and ML views. Breast composition: There are scattered areas of fibroglandular density. Biopsy clips are noted with in the lateral LEFT breast. The dense fibroglandular tissue has slightly improved since the prior deanna dy. There is no development of architectural distortion or increasing asymmetry.. LEFT breast ultrasound, limited. Ultrasound is directed from 3-6 o'clock. The focal asymmetries and i ncreased fibroglandular densities are stable. No increasing soft tissue mass. There is no shadowing o r increased vascularity. MM/[place] [id number] IMPRESSION: BI-RADS: 3-Probably Benign FOLLOW UP: 6 Month Follow-up Return to annual screening mammography. Bilateral screening mammogram December 2021.
== END 2021-07-19 07:42 | disposition home or self-care (01) ==
PROVIDERS: PCP Internal Medicine; Visit Provider Nurse Practitioner Family
DX: N63.20 Unspecified lump in the left breast, unspecified quadrant (principal)
CPT/HCPCS: 76642; 77061

== ENCOUNTER 2024-10-27 13:52 | Emergency (ER) | payer MEDICARE, SELFPAY ==
[2024-10-27] VITALS (7 sets, daily range): BP systolic 92–152; BP diastolic 52–96; PULSE 61–78; RESP 14–20; TEMP 36.7; O2SAT 94–100
--- NOTE | 2024-10-27 13:53 | XRR_ITS ---
PROCEDURE INFORMATION: Exam: XR Chest Exam date and time: 10/27/2024 2:10 PM Age: 74 years old Clinical indication: Pain; Angina pectoris; Additional info: Cp TECHNIQUE: Imaging protocol: Radiologic exam of the chest. Views: 1 view. COMPARISON: CT angio chest PE protcl [id number] 07/11/2020 4:59 PM FINDINGS: Lungs: Low lung volumes is seen the lungs are otherwise clear No consolidation. Pleural spaces: Eventration of the left hemidiaphragm is seen.. No pleural effusion. No pneumothorax. Heart/Mediastinum: Unremarkable. No cardiomegaly. Bones/joints: There are chronic left rib fractures in 5th and 6th posterior rib. Gastrointestinal tract: Gas-filled dilated stomach is seen in the left upper quadrant XR/XR chest 1V portable [id number] IMPRESSION: 1. No acute findings. 2. Eventration left hemidiaphragm 3. Chronic fractures left ribs
--- OUTSIDE RECORDS SUMMARY | 2024-10-27 13:56 | XMS_ITS | Clinical Summary ---
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 Gender Identity Not on file Sexual Orientation Not on file Plan of Treatment Health Maintenance Due Date Last Done Comments DTAP/TDAP/TD VACCINES (1 - Tdap) 1970 BREAST CANCER SCREENING 1991 COLORECTAL SCREENING 1996 Colorectal Cancer Screening 1996 FIT-DNA Q 3 years 1996 FIT/FOBT Q 1 year 1996 Flex Sig/CT Colonography Q 5 years 1996 PNEUMOCOCCAL VACCINE 50+ YEARS (1 of 1 - PCV) 03/14/20 01 ZOSTER VACCINE (1 of 2) 2001 OSTEOPOROSIS SCREENING 2016 INFLUENZA VACCINE (#1) 2024 RSV VACCINE (60+ or ) (1 - 1-dose 75+ series) 2026 Care Teams Claim Representative Relationship Specialty Start Date End Date Adriana Lin MD [address] [place] [id number] PCP - General Family Practice 03/31/14
--- OUTSIDE RECORDS SUMMARY | 2024-10-27 13:56 | XMS_ITS | Patient Health Record ---
Author Organization [facility] Address [address] [place] [address] Care Team Providers Care Religious Education Coordinator Name Role Phone Jordan Hamilton Primary Care Provider Allergies No Known Allergies Reason For Referral No Information Medications Medication SIG (Take, Route, Frequency, Duration) Notes Start Date End Date Status Vitamin B12 1000 MCG Tablet Extended Release 1 tablet Orally Once a day; Duration: 90 days Active Amitiza 8 MCG Capsule 1 capsule with mumtaz d and water Orally Twice a day; Duration: 90 days Not-Taking Primidone 50 MG Tablet 1 tablet Orally O nce a day; Duration: 90 days 08/22/2024 Active Isosorbide Mononitrate ER 30 MG Tablet Extended Release 24 Hour 1 tablet in the morning Orally Once a day; Duration: 90 days 08/17/2025 Active Propranolol HCl ER 60 MG Capsule Extended Release 24 Hour 1 capsule Orally Once a day; Duration: 90 days STOP METOPROLOL 09/23/2024 Active DULoxetine HCl 60 MG Capsule Delayed Release Particles Take 1 capsule by mouth once daily Orally Once a day; Duration: 90 days Active Social History Tobacco Use: Social History Observation Description Date Details (start date - stop date) Never Smoker NA - NA Social History Depression Screening Social Info Question Answer Notes depression screening findings Findings Positive (5+ without suicidality) 08/22/2024 PHQ-9 Little interest or pleasure in doing things Not at all Feeling down, depressed, or hopeless Not at all Trouble falling or staying asleep, or sleeping t oo much Nearly every day Feeling tired or having little energy More than half the days Poor appetite or overeating Several days Feeling bad about yourself, or that you are a failure, or have let yourself or your family down Not at all Trouble concentrating on thi ngs, such as reading the newspaper or watching television Not at all Moving or speaking so slowly that other people could have noticed. Or the opposite ? being so fidgety or restless that you have been moving around a lot more than usual Not at all Thoughts that you would be b darshan off , or of hurting yourself in some way Not at all Total Score 6 Interpretation Mild Depression Drugs/Alcohol: Social Info Question Answer Notes Alcohol Screen (Audit-C) Did you have a drink containing alcohol in the past year? No Points 0 Interpretation Negative Comprehensive Health Assessm ent Social Info Question Answer Notes *Social Determinants of Health Has lack of transportation kept you from medical appointments, meetings, work or from getting things needed for daily living? No Recently, have you worried t hat your food would run out before you got money to buy more? No Do you feel physically and emotionally safe wher e you currently live? Yes Are you worried about losing your housing? No Have you recently been princess rned that your utilities would be turned off (electricity, gas, or water)? 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 Vital Signs Heart Rate 65 /min 09/23/2024 Temperature 97.5 degrees Fahrenheit 09/23/2024 Blood pressure diastolic 68 mm Hg 09/23/2024 Oximetry 67 % 09/23/2024 Height-cm 157.48 cm 09/23/2024 Weight-kg 43.55 kg 09/23/2024 Height 62 in 09/23/2024 Blood pressure systolic 115 mm Hg 09/23/2024 Weight 96 lbs 09/23/2024 BMI 17.56 kg/m2 09/23/2024 Encounters Encounter Location Date Provider Diagnosis [facility] [address] [address] 09/23/2024 Jordan Hamilton Age-related cognitive decline R41.81 ; Essential tremor G25.0 ; Frail elderly R54 ; Essential hypertension I10 and Depression screen Z13.31 [facility] [address] [address] 08/22/2024 Jordan Hamilton Age-related cognitive decline R41.81 ; Chronic constipation K59.09 ; Essential hypertension I10 ; Frail elderly R54 ; Essential tremor G25.0 and Depression screen Z13.31 [facility] [address] [address] 12/14/2023 Jordan Hamilton Age-related cognitive decline R41.81 ; Chronic constipation K59.09 ; Essential hypertension I10 and Body mass index [BMI] 21.0-21.9, adult Z68.21 Assessments Encounter Date Diagnosis (ICD Code) Assessment Notes Treatment Notes Treatment Clinical Notes Section Notes 12/14/2023 Age-related cognitive decline (ICD-10 - R41.81) 12/14/2023 Chronic constipation (ICD-10 - K59.09) 08/22/2024 Age-related cognitive decline (ICD-10 - R41.81) 08/22/2024 Chronic constipation (ICD-10 - K59.09) 09/23/2024 Age-related cognitive decline (ICD-10 - R41.81) 08/22/2024 Essential hypertension (ICD-10 - I10) 12/14/2023 Essential hypertension (ICD-10 - I10) monitor bp and record for chart 09/23/2024 Essential tremor (ICD-10 - G25.0) 09/23/2024 Frail elderly (ICD-10 - R54) 12/14/2023 Body mass index [BMI] 21.0-21.9, adult (ICD-10 - Z68.21) 08/22/2024 Frail elderly (ICD-10 - R54) 09/23/2024 Essential hypertension (ICD-10 - I10) 08/22/2024 Essential tremor (ICD-10 - G25.0) 09/23/2024 Depression screen (ICD-10 - Z13.31) 08/22/2024 Depression screen (ICD-10 - Z13.31) 12/14/2023 Other continue current treatment Plan Of Treatment No Information Insurance Providers Payer Name Payer Address Payer Phone Subscriber Number Group Number Insured Name Patient Relationship to Insured Coverage Start Date Coverage End Date [facility] [employer] [address] [place] [address] [id number] Dea Belcher Self - patient is the insured Medical (General) History Medical History History ICD Code hypetension nueropathy congestive heart failure light stroke 6 02/2024 Surgical History Surgery Date(Month/Year) hysterectomy right knee surgery right hip replacement
--- OUTSIDE RECORDS SUMMARY | 2024-10-27 13:56 | XMS_ITS | Encounter Summary ---
Author Organization [facility] Address [address] [place] [place] [address] Care Team Providers Care Hand Screen Printer Name Role Phone Adriana Lin MD Primary Care Provider Encounter Details Date Type Department Care Team (Late st Contact Info) Description 03/19/2015 Ancillary Orders [facility] Pre-Registration [facility] CALL TO MAKE APPOINTMENT ONLY [address] [place] [address] Adriana Lin MD [address] [place] [address] Encounter for screening mammogram for breast cancer (Primary Dx) Social History Tobacco Use Types Packs/Day Years Used Date Smoking Tobacco: Never Assessed Comments Unknown Sex and Gender Information Value Date Recorded Sex Assigned at Not on file 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
--- OUTSIDE RECORDS SUMMARY | 2024-10-27 13:56 | XMS_ITS | Clinical Summary ---
Author Organization [place] Address [address] [place] [address] Phone Care Team Providers Care Objective C Developer Name Role Phone Adriana Lin MD Primary Care Provider Allergies No known active allergies Medications clopidogrel (PLAVIX) 75 mg Tablet Active hydrochlorothiazid e 25 mg Oral tablet Active levothyroxine 100 mcg Oral tablet Acti ve aspirin (ECOTRIN EC) 81 mg Tablet, Delayed Release (E.C.) Active meloxicam (MOBIC) 15 mg tablet Active propranolol (INDERAL) 80 mg tablet Active conjugated estrogens (PREMARIN) 0.625 mg tablet Active hydrOXYzine pamoate (VISTARIL) 25 mg capsule Active traZODone (DESYREL) 100 mg tablet Active NITROGLYCERIN (NITROSTAT SUBLINGUAL) Active ranitidine HCl (ZANTAC) 300 mg Capsule Active HYDROcodone-acetam inophen (NORCO) 7.5-325 mg Tablet Ac tive pantoprazole (PROTONIX) 40 mg Tablet, Delayed Release (E.C.) Activ e rOPINIRole (REQUIP) 1 mg tablet Active Active Problems No known active problems Social History Tobacco Use Types Packs/Day Years Used Date Smoking Tobacco: Never Assessed Comments Unknown Sex and Gender Information Value Date Recorded Sex Assigned at Not on file 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 Gender Identity Not on file Sexual Orientation Not on file Occupation Industry Job Start Date Job End Date Not on file Not on file Not on file Not on file Plan of Treatment Health Maintenance Due Date Last Done Comments DTAP/TDAP/TD VACCINES (1 - Tdap) 1970 BREAST CANCER SCREENING 1991 COLORECTAL SCREENING 1996 Colorectal Cancer Screening 1996 FIT-DNA Q 3 years 1996 FIT/FOBT Q 1 year 1996 Flex Sig/CT Colonography Q 5 years 1996 PNEUMOCOCCAL VACCINE 50+ YEARS (1 of 1 - PCV) 03/14/20 ZOSTER VACCINE (1 of 2) 2001 OSTEOPOROSIS SCREENING 2016 INFLUENZA VACCINE (#1) 2024 RSV VACCINE (60+ or ) (1 - 1-dose 75+ series) 2026 Insurance MEDICAID [place] Care Teams Objective C Developer Relationship Specialty Start Date End Date Adriana Lin MD [address] [place] [address] PCP - General Family Practice 03/31/14
--- OUTSIDE RECORDS SUMMARY | 2024-10-27 13:56 | XMS_ITS | Encounter Summary ---
Author Organization [facility] Address [address] [place] [address] Care Team Providers Care Quality Assurance Advisor Name Role Phone Adriana Lin MD Primary Care Provider Reason for Referral * Outpatient Services (Routine) - Closed Specialty Diagnoses / Procedures Referred By Contac t Referred To Contact Diagnoses Lump or mass in breast Procedures MAMMO BREAST US RT Adriana Lin MD [address] [place] [address] Phone: tel: fax: Referral ID Status Reason Start Date Expiration Date Visits Re quested Visits Authorized [id number] Closed 03/24/2014 04/24/2015 1 1 LOPMENTAL BEHAVIORAL PHYSICIAN Encounter Details Date Type Department Care Team (Late st Contact Info) Description 03/24/2014 Ancillary Orders [facility] [address] [address] Adriana Lin MD [address] [place] [address] Lump or mass in breast (Primary Dx) Social History Tobacco Use Types Packs/Day Years Used Date Smoking Tobacco: Never Assessed Comments Unknown Sex and Gender Information Value Date Recorded Sex Assigned at Not on file Legal Sex Female 1:48 PM DEVELOPMENTAL BEHAVIORAL PHYSICIAN Gender Identity Not on file Sexual Orientation Not on file documented as of this encounter Plan of Treatment Not on file documented as of this encounter Results * MAMMO BREAST US RT (03/31/2014 12:12 PM DEVELOPMENTAL BEHAVIORAL PHYSICIAN) Anatomical Region Laterality Modality Breast Right Ultrasound 03/31/2014 11:1 4 AM DEVELOPMENTAL BEHAVIORAL PHYSICIAN Impressions 04/07/2014 6:43 AM DEVELOPMENTAL BEHAVIORAL PHYSICIAN IMPRESSION: Tender palpable lumps per patient in the right breast 7 o'clock, 11 o'clock, 3 o'clock and axillary tail regions, sonographically occult on today's exam and mammographically occult on recent diagnostic mammogram at [facility]. Patient's symptomatic palpable concerns are of undetermined etiology. Possibility of symptomatic residual benign fibrocystic tissue. Additionally, nonbreast related etiology should be considered. RECOMMENDATION: 1. Conservative therapy for nonspecific focal tenderness: Vitamin E 400 IU daily. Evening [place] oil daily. Focal heat therapy. With patient's GERD, use of NSAIDs should be at the discretion of patient's provider. 2. Surgical consultation for imaging occult palpable concerns as clinically indicated. 3. Yearly screening mammogram. Findings and recommendations discussed with the patient at the time of exam. A verbal and written summary was given to the patient. LEIGH ANN/tang - uploaded from [employer] - Narrative 04/07/2014 6:43 AM DEVELOPMENTAL BEHAVIORAL PHYSICIAN RIGHT BREAST DIAGNOSTIC ULTRASOUND HISTORY: 64-year-old evaluated at [facility] 02/24/2014 with diagnostic mammogram and ultrasound for one month history of soreness and tender palpable lumps in the right breast 7 o'clock, 11 o'clock and axillary tail regions with no obvious mammographic or sonographic finding or correlate. Patient presents for further evaluation. Patient describes the palpable concerns as pea-sized nodules. Additionally today she describes a similar finding in the right breast 3 o'clock region. When asked about additional concerns, she stated she felt like she probably has fibromyalgia. She is chronically fatigued with scattered body aches and pains, known arthritis, GERD and a coronary artery stent. She denies diabetes and is a nonsmoker. Review of the diagnostic mammogram from the above noted evaluation demonstrates scattered benign fibroglandular elements with no suspicious finding and no obvious mammographic correlates to the patient's complaints. When compared to prior study from 2004, no appreciable change was seen. CLINICAL EXAM: At the patient's areas of palpable concern in the 7 o'clock position 2 cm from the nipple, the 11:30 o'clock position 3 cm from the nipple, the 2 o'clock position 4 cm from the nipple and in the extended 9 o'clock axillary tail region no discrete suspicious palpable finding was noted. Soft rubbery nodular and lumpy tissue was present in all areas with focal tenderness at each of those positions. FINDINGS: Realtime sonographic imaging of the right breast tender palpable concerns indicated in the clinical exam demonstrates benign breast tissue with predominance of fat lobules and minimal scattered benign fibroglandular and fibrocystic tissue. No discrete or suspicious finding at any of the palpable areas of concern. Procedure Note Earnest Brito MD - 04/07/2014 RIGHT BREAST DIAGNOSTIC ULTRASOUND HISTORY: 64-year-old evaluated at [facility] 02/24/2014 with diagnostic mammogram and ultrasound for one month history of soreness and tender palpable lumps in the right breast 7 o'clock, 11 o'clock and axillary tail regions with no obvious mammographic or sonographic finding or correlate. Patient presents for further evaluation. Patient describes the palpable concerns as pea-sized nodules. Additionally today she describes a similar finding in the right breast 3 o'clock region. When asked about additional concerns, she stated she felt like she probably has fibromyalgia. She is chronically fatigued with scattered body aches and pains, known arthritis, GERD and a coronary artery stent. She denies diabetes and is a nonsmoker. Review of the diagnostic mammogram from the above noted evaluation demonstrates scattered benign fibroglandular elements with no suspicious finding and no obvious mammographic correlates to the patient's complaints. When compared to prior study from 2003, no appreciable change was seen. CLINICAL EXAM: At the patient's areas of palpable concern in the 7 o'clock position 2 cm from the nipple, the 11:30 o'clock position 3 cm from the nipple, the 2 o'clock position 4 cm from the nipple and in the extended 9 o'clock axillary tail region no discrete suspicious palpable finding was noted. Soft rubbery nodular and lumpy tissue was present in all areas with focal tenderness at each of those positions. FINDINGS: Realtime sonographic imaging of the right breast tender palpable concerns indicated in the clinical exam demonstrates benign breast tissue with predominance of fat lobules and minimal scattered benign fibroglandular and fibrocystic tissue. No discrete or suspicious finding at any of the palpable areas of concern. IMPRESSION IMPRESSION: Tender palpable lumps per patient in the right breast 7 o'clock, 11 o'clock, 3 o'clock and axillary tail regions, sonographically occult on today's exam and mammographically occult on recent diagnostic mammogram at [facility]. Patient's symptomatic palpable concerns are of undetermined etiology. Possibility of symptomatic residual benign fibrocystic tissue. Additionally, nonbreast related etiology should be considered. RECOMMENDATION: 1. Conservative therapy for nonspecific focal tenderness: Vitamin E 400 IU daily. Evening [place] oil daily. Focal heat therapy. With patient's GERD, use of NSAIDs should be at the discretion of patient's provider. 2. Surgical consultation for imaging occult palpable concerns as clinically indicated. 3. Yearly screening mammogram. Findings and recommendations discussed with the patient at the time of exam. A verbal and written summary was given to the patient. CLINTONC/tang - uploaded from [employer] - us Adriana Lin MD MAMMO ORDERABLES Final Result documented in this encounter Visit Diagnoses Diagnosis Lump or mass in breast- Primary Lump or mass in breast documented in this encounter Care Teams Quality Assurance Advisor Relationship Specialty Start Date End Date Adriana Lin MD [address] [place] [phone] PCP - General Family Practice 03/31/14 documented as of this encounter
--- NOTE | 2024-10-27 14:02 | ECG_ITS ---
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 Measurements Intervals [place] Rate: 70 P: 9 MN: 143 QRS: -7 QRSD: 75 T: 35 QT: 331 QTc: 358 Interpretive Statements SINUS RHYTHM WITH SINUS ARRHYTHMIA NONSPECIFIC T-WAVE ABNORMALITY Compared to ECG 07/11/2020 13:08:23 T-wave abnormality now present Myocardial infarct finding no longer present Electronically Signed On 10-30-2024 10:28:01 CDT by Edison Owen M.D. [id number]
--- NOTE | 2024-10-27 14:21 | ED_ITS ---
HPI - Chest Pain 2 General: Chief Complaint: Chest Pain Stated Complaint: cp & sob Time Seen by Provider: 10/27/24 14:11 Source: patient Mode of arrival: ambulatory Limitations: no limitations History of Present Illness: 74-year-old female who states that she h as been having chest pains over the last hour states has been a very sharp pain in the center of her chest she rates her pain a 8 out of 10. States had some slight shortness of breath as well she denies abdominal pain denies any worse improving factors denies any vomiting or diarrhea Associated symptoms: Reports dyspnea; Deny abdominal pain, fever(s), nausea or vomiting Related Data Home Medications ?Medication ?Instructions ?Recorded ?Confirmed nitroglycerin 0.4 mg sublingual 0.4 mg sublingual Q5M PRN Chest 04/08/19 11/17/21 tablet (Nitrostat) Pain multivitamin (Multiple Vitamins 1 tab PO DAILY@0600 11/17/21 tablet) glucosam 750 mg-chondroi 100 1 tab PO DAILY@0600 07/1111/17/21 mg-hyalur 1.65 mg-CF borate 108 mg tablet ([facility] [employer]) Previous Rx's ?Medication ?Instructions ?Recorded tramadol 50 mg tablet 50 mg PO BID PRN pain (scale score 12/16/19 7-10) #60 tabs simvastatin 20 mg tablet 20 mg PO DAILY@0600 #90 tabs 09/28/20 albuterol sulfate 90 mcg/actuation 2 puff inhalation Q 4H PRN 06/09/21 aerosol inhaler (ProAir HFA) shortness of breath or wh eezing #18 grams amitriptyline 10 mg tablet 10 mg PO DAILY@0600 #90 tab s 06/09/21 buspirone 10 mg tablet 10 mg PO BID PRN anxiety #60 tabs 06/09/21 cyanocobalamin (vitamin B-12) 2,500 mcg sublingual VICKI LY@0600 06/09/21 2,500 mcg sublingual tablet #90 tabs (Vitamin B-12) duloxetine 30 mg capsule,delayed See Rx Instructions . Route 06/09/21 release .COMPLEX #90 caps duloxetine 60 mg capsule,delayed 60 mg PO DAILY #90 ca ps 06/09/21 release (Cymbalta) memantine 10 mg tablet (Namenda) 10 mg PO DAILY@0600 # 90 tabs 06/09/21 pantoprazole 40 mg tablet,delayed 40 mg PO BID@0600,18 00 #180 tabs 06/09/21 release (Protonix) pramipexole 0.25 mg tablet 0.25 mg PO BEDTIME@2000 #90 tabs 06/09/21 levothyroxine 25 mcg capsule 25 mcg PO DAILY@0600 #90 caps 06/10/21 gabapentin 100 mg capsule 100 mg PO BID@0600,1800 pain #90 01/06/22 caps isosorbide mononitrate 30 mg 30 mg PO BID@0600,1800 #6 0 tabs 07/11/22 tablet,extended release 24 hr metoprolol succinate 25 mg 25 mg PO DAILY@0600 #60 tab s 07/13/22 tablet,extended release 24 hr hydrocodone 5 mg-acetaminophen 325 1 tab PO Q6H PRN pa in #14 tabs 10/27/24 mg tablet ondansetron 4 mg disintegrating 4 mg PO Q6H PRN nausea and 10/27/24 tablet vomiting #14 tabs Allergies Allergy/AdvReac Type Severity Reaction Status Date / Time amoxicillin AdvReac nauseated Verified 12/14/21 08:11 clavulanic acid (From AdvReac nauseated Verified 12/14/21 08:11 Augmentin) Review of Systems 2 Const: Denies: fever(s), chills, body aches or change in appetite ENMT: Denies: throat pain or dental pain Card: Reports: chest pain Resp: Reports: dyspnea GI: Denies: abdominal pain, nausea, vomiting or diarrhea Musc: Denies: neck pain or back pain Skin/Breast: Denies: rash Neuro: Denies: headache(s) PFSH ED 2 PFSH: Medical History Cognitive decline 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 Keane. GERD (gastroesophageal reflux disease) History of pulmonary embolism Hyperlipidemia H/O methicillin resistant Staphylococcus aureus Hypothyroidism, unspecified MARGARITA (obstructive sleep apnea) Essential (primary) hypertension Surgical History Status post total hip replacement, right Status post right foot surgery History of arthroscopy of left knee S/P total knee arthroplasty S/P cataract extraction History of repair of hiatal hernia S/P cholecystectomy S/P percutaneous transluminal angioplasty (EXTENSION ASSOCIATE) with stent placement S/P sclerotherapy of varicose veins S/P hysterectomy Family History Mother CAD (coronary artery disease) unknown age of onset Diabetes Hypertension Myocardial infarct Sister Anesthesia complication Denies family history of Clotting disorder Dementia Chronic kidney disease (CKD) Suicide Bleeding disorder Lung disease Cancer Stroke Social History Smoking and tobacco/nicotine status: never used tobacco/nicotine Alcohol intake: never Substance/Drug Use: never Household members: spouse Marital status: Current occupational status: retired Physical Exam 2 Const: COMMON NORMALS: patient oriented x3 HENMT: COMMON NORMALS: normocephalic and atraumatic HEAD & SCALP: n ormocephalic and atraumatic Eye: COMMON NORMALS: Equal, round and reactive pupils present and EOMs intact bilaterally PUPIL: Yes Equal, round and reactive pupils present Neck/C-Spine: COMMON NORMALS: full ROM and supple Chest: COMMONS NORMALS: normal inspection of the chest and normal palpation of entire chest wall Resp: COMMON NORMALS: normal respiratory effort, No retractions, No use of accessory muscles and clear to auscultation bilaterally AUSCULTATION: clear to auscultation bilaterally Cardio: COMMON NORMALS: regular rate, regular rhythm and No murmurs present (Cardio) RATE: regular rate RHYTHM: regular rhythm GI: COMMON NORMALS: Normal to inspection, nondistended, normoactive bowel sounds present, Soft to palpation, non-tender and no masses PALPATION: Yes Soft to palpation Extremity: COMMON NORMALS: normal to inspection and full ROM Neuro: COMMON NORMALS: patient oriented x3, moves all extremities and no focal motor deficits Psych: COMMON NORMALS: mental status grossly normal, Normal thought process present and cooperative THOUGHT PROCESS: Normal thought process present Skin: COMMON NORMALS: no rashes or lesions noted and no wounds GENERAL SKIN EXAM: no rashes or lesions noted Course 2 Vital Signs: Vital signs: Vital Signs Temperature 98.1 F 10/27/24 13:59 Pulse Rate 78 10/27/24 17:20 Respiratory Rate 20 H 10/27/24 15:52 Blood Pressure 102/52 10/27/24 17:20 Pulse Oximetry 94 10/27/24 17:20 Oxygen Delivery Me thod Room Air 10/27/24 16:22 MDM - Chest Pain Medical Decision Making Patient presents for chest pain is atypical in nature initial repeat troponin had a negative delta though she has no signs of ACS she is point tenderness in her chest likely chest wall pain she is follow-up with PCP return if worsening she understands agrees to plan. Medical Records I reviewed the patient's medical records. Lab Data I reviewed the patient's lab results. 10/27/24 14:22 10/27/24 14:22 Radiology Impressions Chest X-Ray 10/27/24 13:53 IMPRESSION: 1. No acute findings. 2. Eventration left hemidiaphragm 3. Chronic fractures left ribs Laboratory Results WBC 6.63 10^3/uL (3.29-11.43) 10/27/24 14:22 RBC 4.25 10^6/uL (3.85-5.65) 10/27/24 14:22 Hgb 13.60 g/dL (11.27-16.99) 10/27/24 14:22 Hct 41.6 % (36-47) 10/27/24 14:22 MCV 97.9 fl (85-98) 10/27/24 14:22 MCH 32.0 pg (27-33) 10/27/24 14:22 MCHC 32.7 g/dL (30-55) 10/27/24 14:22 RDW 14.2 % (12.1-15.1) 10/27/24 14:22 Plt Count 248 10^3/cmm (157-399) 10/27/24 14:22 MPV 10.8 fL (7.4-10.4) H 10/27/24 14:22 Neut % (Auto) 66.6 % 10/27/24 14:22 Lymph % (Auto) 27.6 % 10/27/24 14:22 Armstrong % (Auto) 4.4 % 10/27/24 14:22 Eos % (Auto) 0.6 % 10/27/24 14:22 Baso % (Auto) 0.5 % 10/27/24 14:22 Neut # (Auto) 4.42 10^3/uL (1.8-7.7) 10/27/24 14:22 Lymph # (Auto) 1.8 10^3/uL (0.8-4.8) 10/27/24 14:22 Armstrong # (Auto) 0.3 10^3/uL (0.2-0.9) 10/27/24 14:22 Eos # (Auto) 0.0 10^3/uL (0.0-0.8) 10/27/24 14:22 Baso # (Auto) 0.0 10^3/uL (0.0-0.1) 10/27/24 14:22 Nucleated RBC % (auto) 0 % 10/27/24 14:22 Nucleated RBCs # 0.0 /100WBC 10/27/24 14:22 D-Dimer 0.53 ug/mLFEU (0-0.59) 10/27/24 14:22 Sodium 142 mmol/L (136-145) 10/27/24 14:22 Potassium 4.6 mmol/L (3.5-5.1) 10/27/24 14:22 Chloride 105 mmol/L (98-107) 10/27/24 14:22 Carbon Dioxide 26 mmol/L (22-29) 10/27/24 14:22 Anion Gap 15.6 (5-19) 10/27/24 14:22 BUN 22 mg/dL (8-23) 10/27/24 14:22 Creatinine 0.9 mg/dL (0.5-0.9) 10/27/24 14:22 GFR Calculation Not Reportable 10/27/24 14:22 Glucose 96 mg/dL (65-115) 10/27/24 14:22 Calculated Osmolality 297 mOsm/kg (285-295) H 10/27/24 14:22 Calcium 9.5 mg/dL (8.5-10.5) 10/27/24 14:22 Total Bilirubin 0.7 mg/dL (0.15-1.2) 10/27/24 14:22 AST 24 U/L (0-32) 10/27/24 14:22 ALT 29 U/L (0-33) 10/27/24 14:22 Alkaline Phosphatase 76 U/L (35-105) 10/27/24 14:22 Troponin T Baseline 21 ng/L (0-10) H 10/27/24 14:22 Troponin T 120 Minute 16.79 ng/L (0-10) H 10/27/24 15:54 Delta Troponin T -4.21 ABS# (0-10) L 10/27/24 15:54 NT-Pro-B Natriuret Pep 1318 pg/mL (0-125) H 10/27/24 14:22 Total Protein 6.9 g/dL (6.6-8.7) 10/27/24 14:22 Albumin 4.1 g/dL (3.5-5.2) 10/27/24 14:22 Globulin 2.8 g/dL (1.3-4.6) 10/27/24 14:22 Lipase 22 U/L (13-60) 10/27/24 14:22 All radiology interpretation(s) finalized by discharge EKG Data EKG 1: I personally reviewed and interpreted this EKG as follows: EKG interpretation date: 10/27/24 EKG interpretation time: 14:02 Interpretation: nsr hr [address] elevation qrs 75 qtc 352 EKG 2: I personally reviewed and interpreted this EKG as follows: EKG interpretation date: 10/27/24 EKG interpretation time: 15:33 Interpretation: nsr hr [address] or t wave abnormalities qrs 83 qtc 414 Discharge Plan Discharge Patient Disposition: Home Clinical Impression: Chest pain Condition: Stable Prescriptions: New hydrocodone-acetaminophen 5-325 mg tablet 1 tab PO Q6H PRN (Reason: pain) Qty: 14 0RF ondansetron 4 mg tablet,disintegrating 4 mg PO Q6H PRN (Reason: nausea and vomiting) Qty: 14 0RF No Action nitroglycerin [Nitrostat] 0.4 mg tablet, sublingual 0.4 mg SUBLINGUAL Q5M PRN (Reason: Chest Pain) tramadol 50 mg tablet 50 mg PO BID PRN (Reason: pain (scale score 7-10)) Qty: 60 0RF albuterol sulfate [ProAir HFA] 90 mcg/actuation HFA aerosol inhaler 2 puff INHALATION Q4H PRN (Reason: shortness of breath or wheezing) Qty: 18 3RF amitriptyline 10 mg tablet 10 mg PO DAILY@0600 Qty: 90 3RF buspirone 10 mg tablet 10 mg PO BID PRN (Reason: anxiety) Qty: 60 3RF Vitamin B-12 2,500 mcg tablet, sublingual 2,500 mcg SUBLINGUAL DAILY@0600 Qty: 90 3RF duloxetine [Cymbalta] 60 mg capsule,delayed release(DR/EC) 60 mg PO DAILY Qty: 90 3RF Rx Instructions: TAKE WITH 30 MG TO MAKE 90 MG DAILY duloxetine 30 mg capsule,delayed release(DR/EC) See Rx Instructions .ROUTE .COMPLEX Qty: 90 3RF Dose Instruction: TAKE ONE CAPSULE BY MOUTH DAILY Rx Instructions: TAKE ONE CAPSULE BY MOUTH DAILY Namenda 10 mg tablet 10 mg PO DAILY@0600 Qty: 90 3RF Protonix 40 mg tablet,delayed release (DR/EC) 40 mg PO BID@0600,1800 Qty: 180 3RF pramipexole 0.25 mg tablet 0.25 mg PO BEDTIME@2000 Qty: 90 3RF simvastatin 20 mg tablet 20 mg PO DAILY@0600 Qty: 90 3RF levothyroxine 25 mcg capsule 25 mcg PO DAILY@0600 Qty: 90 3RF gabapentin 100 mg capsule 100 mg PO BID@0600,1800 Qty: 90 3RF isosorbide mononitrate 30 mg tablet extended release 24 hr 30 mg PO BID@0600,1800 Qty: 60 0RF Rx Instructions: MUST have follow-up for further refills metoprolol succinate 25 mg tablet extended release 24 hr 25 mg PO DAILY@0600 Qty: 60 0RF multivitamin [Multiple Vitamins] Tablet 1 tab PO DAILY@0600 [facility] 750 mg-100 mg- 1.65 mg-108 mg Tablet 1 tab PO DAILY@0600 Discharge Orders: Discharge ED (Routine); Ordered 10/27/24 Ordered By: Larry Miller Referrals: Mitchel Hamilton MD [Primary Care Provider, Internal Medicine] - 4-7 days Discharge Diet: Advance as tolerated Discharge Activity: Resume usual activity Patient Instructions: Chest Pain (ED) Print Language: Slovenian Coding Level of Care Code ED Salesperson Floor Coverings for Tatyana Rocha
[2024-10-27] MEDS: ondansetron 2 mg/ML SDV 2 mL 4 MG IVP (14:30)
[2024-10-27] MEDS: morphine 4 mg/mL SDV 1 mL IVP ×2 (14:32→15:52)
[2024-10-27 14:34] LABS: Hematocrit 41.6 % (36-47); Hemoglobin 13.60 g/dL (11.27-16.99); Mean Corpuscular HGB Conc 32.7 g/dL (30-55); Mean Corpuscular Hemoglobin 32.0 pg (27-33); Mean Corpuscular Volume 97.9 fl (85-98); Nucleated Red Blood Cells % 0 %; Platelet Count 248 10^3/cmm (157-399); Red Blood Count 4.25 10^6/uL (3.85-5.65); White Blood Count 6.63 10^3/uL (3.29-11.43)
[2024-10-27 14:52] LABS: Troponin(5th) Baseline 21 ng/L (0-10)
[2024-10-27 15:00] LABS: Alanine Aminotransferase 29 U/L (0-33); Albumin Level 4.1 g/dL (3.5-5.2); Alkaline Phosphatase 76 U/L (35-105); Anion Gap 15.6 (5-19); Aspartate Amino Transferase 24 U/L (0-32); Blood Urea Nitrogen 22 mg/dL (8-23); Calcium 9.5 mg/dL (8.5-10.5); Carbon Dioxide 26 mmol/L (22-29); Chloride 105 mmol/L (98-107); Creatinine Clr Calc Pharmacy 39.9385; Globulin 2.8 g/dL (1.3-4.6); Glucose 96 mg/dL (65-115); Lipase 22 U/L (13-60); NT Pro B Type Natriuretic Pept 1318 pg/mL (0-125); Osmolality Calculated 297 mOsm/kg (285-295); Potassium 4.6 mmol/L (3.5-5.1); Sodium 142 mmol/L (136-145); Total Protein 6.9 g/dL (6.6-8.7)
--- NOTE | 2024-10-27 15:53 | ECG_ITS ---
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
[2024-10-27 17:03] LABS: Troponin 5 2HR 16.79 ng/L (0-10)
[2024-10-27 17:07] LABS: Troponin 5 2HR Delta -4.21 ABS# (0-10)
== END 2024-10-27 17:33 | disposition home or self-care (01) ==
PROVIDERS: Emergency Provider Emergency Medicine; PCP Internal Medicine
DX: R07.9 Chest pain, unspecified (principal); R78.5 Finding of other psychotropic drug in blood; I10 Essential (primary) hypertension; I25.10 Atherosclerotic heart disease of native coronary artery without angina pectoris
CPT/HCPCS: 71045; 80053; 83690; 83880; 84484; 85025; 85378; 93005; 96374; 96375; 96376; 99285; J2270; J2405; J9999

== ENCOUNTER 2024-12-14 19:32 | Inpatient (IN) | payer MEDICARE, SELFPAY ==
[2024-12-14] VITALS (8 sets, daily range): BP systolic 88–138; BP diastolic 44–77; PULSE 48–68; RESP 14–18; TEMP 36.2; O2SAT 100; BMI 20.6
[2024-12-14] MEDS: succinylcholine 20 mg/mL SDV 10mL 100 MG IVP (19:37)
[2024-12-14] MEDS: etomidate 2 mg/mL INJ SDV 10 mL 15 MG IVP (19:37)
[2024-12-14] MEDS: propofol 10 mg/mL SDV 20 mL 20 MG IVP (19:41)
--- NOTE | 2024-12-14 19:43 | ECG_ITS ---
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 Measurements Intervals [place] Rate: 64 P: 38 MD: 130 QRS: 49 QRSD: 90 T: 82 QT: 429 QTc: 446 Interpretive Statements SINUS RHYTHM LOW QRS VOLTAGE IN EXTREMITY LEADS [QRS DEFLECTION < 0.5 mV IN LIMB LEADS] Compared to ECG 10/27/2024 15:33:17 Low QRS voltage now present T-wave abnormality no longer present Electronically Signed On 12-16-2024 08:14:43 CDT by Elsie Keane M.D. [email or web address]
--- NOTE | 2024-12-14 19:46 | CTR_ITS ---
PROCEDURE INFORMATION: Exam: CT Head Without Contrast Exam date and time: 12/14/2024 10:11 PM Age: 74 years old Clinical indication: Altered mental status/memory loss; EMS arrival for AMS. Patient unresponsive and intubated upon er arrival. TECHNIQUE: Imaging protocol: Computed tomography of the head without contrast. Radiation optimization: All CT scans at this facility use at least one of these dose optimization techniques: automated exposure control; mA and/or kV adjustment per patient size (includes targeted exams where dose is matched to clinical indication); or iterative reconstruction. COMPARISON: CT head wo con* [id number] 06/07/2018 5:20 PM RADIATION DOSE METRICS: Total DLP (mGy-cm): 1102.18 FINDINGS: Brain: No hemorrhage. Patchy areas of hypoattenuation within the periventricular white matter are nonspecific but likely reflect a background of microvascular ischemic changes. Cerebral ventricles: The ventricles and sulci are proportionately enlarged, compatible with parenchymal atrophy. Paranasal sinuses: Visualized sinuses are unremarkable. No fluid levels. Mastoid air cells: Visualized mastoid air cells are well aerated. Bones: Unremarkable. No acute fracture. Soft tissues: Unremarkable. CT/CT head wo con* [id number] IMPRESSION: 1. No acute intracranial finding. 2. Chronic small-vessel ischemic changes and atrophy.
--- NOTE | 2024-12-14 19:46 | XRR_ITS ---
PROCEDURE INFORMATION: Exam: XR Chest Exam date and time: 12/14/2024 8:54 PM Age: 74 years old Clinical indication: Other: AMS; EMS arrival for unresponsiveness. Intubated immediately upon arrival. Og in place. TECHNIQUE: Imaging protocol: Radiologic exam of the chest. Views: 1 view. COMPARISON: CR XR chest 1V portable [id number] 10/27/2024 2:10 PM FINDINGS: Tubes, catheters and devices: Endotracheal tube is present with tip terminating 4 cm above the drew. Enteric tube tip projects over the left upper quadrant of the abdomen. Lungs: Unremarkable. No consolidation. Pleural spaces: No pleural effusion. No pneumothorax. Heart/Mediastinum: Coronary artery stent. No cardiomegaly. Bones/joints: Chronic compression deformity of T11 vertebral body. A few chronic left posterior rib fractures. XR/XR chest 1V portable [id number] IMPRESSION: 1. No acute finding. 2. Appropriately positioned endotracheal tube and enteric tube.
--- NOTE | 2024-12-14 19:48 | PC.NURSE ---
Intubation note Pt's initial O2 reading was 100% on 6L. Pt was given 15mg etomidate @193, 100mg Succs @193 Pt was intubated with 7.5 et-tube @1938 and 22 @the lip. Pt was given 10mg of Propofol @1940 then another 10mg of propofol @1943.
[2024-12-14] MEDS: propofol 1,000 MG/100 ML INJ 1.44 MG IV (19:52)
--- OUTSIDE RECORDS SUMMARY | 2024-12-14 20:02 | XMS_ITS | Encounter Summary ---
Author Organization [facility] Address [address] [place] [address] Care Team Providers Care Coffee Farmer Name Role Phone Adriana Lin MD Primary Care Provider Encounter Details Date Type Department Care Team (Late st Contact Info) Description 03/19/2015 Ancillary Orders [facility] Pre-Registration [place] CALL TO MAKE APPOINTMENT ONLY [address] [place] [address] Adriana Lin MD [address] [place] [phone] Encounter for screening mammogram for breast cancer (Primary Dx) Social History Tobacco Use Types Packs/Day Years Used Date Smoking Tobacco: Never Assessed Comments Unknown Sex and Gender Information Value Date Recorded Sex Assigned at Not on file 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
--- OUTSIDE RECORDS SUMMARY | 2024-12-14 20:02 | XMS_ITS | Clinical Summary ---
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
--- OUTSIDE RECORDS SUMMARY | 2024-12-14 20:02 | XMS_ITS | Patient Health Record ---
Author Organization [facility] Address [address] [place] [address] Care Team Providers Care Vehicle Maintenance Technician Name Role Phone Jordan Hamilton Primary Care Provider [phone] Allergies No Known Allergies Reason For Referral [...] W/U Status Risk Notes Problem Essential tremor (096404991) Essential tremor (G25.0) Active confirmed Problem Age-related cognitive decline (016461117) Age-related cognitive decline (R41.81) Active confirmed Problem Essential hypertension (41389751) Essential hypertension (I10) Active confirmed Problem Chronic constipation (935726149) Chronic constipation (K59.09) Active confirmed Problem 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 Vital Signs Heart Rate 65 /min 09/23/2024 Temperature 97.5 degrees Fahrenheit 09/23/2024 Oximetry 67 % 09/23/2024 Blood pressure diastolic 68 mm Hg 09/23/2024 Height-cm 157.48 cm 09/23/2024 Weight-kg 43.55 kg 09/23/2024 Height 62 in 09/23/2024 Blood pressure systolic 115 mm Hg 09/23/2024 Weight 96 lbs 09/23/2024 BMI 17.56 kg/m2 09/23/2024 Encounters Encounter Location Date Provider Diagnosis [facility] Internal Medicine [address] [address] 08/22/2024 Jordan Hamilton Age-related cognitive decline R41.81 ; Chronic constipation K59.09 ; Essential hypertension I10 ; Frail elderly R54 ; Essential tremor G25.0 and Depression screen Z13.31 [facility] Internal Medicine [address] [address] 09/23/2024 Jordan Hamilton Age-related cognitive decline R41.81 ; Essential tremor G25.0 ; Frail elderly R54 ; Essential hypertension I10 and Depression screen Z13.31 Assessments Encounter Date Diagnosis (ICD Code) Assessment Notes Treatment Notes Treatment Clinical Notes Section Notes 08/22/2024 Age-related cognitive decline (ICD-10 - R41.81) 08/22/2024 Chronic constipation (ICD-10 - K59.09) 09/23/2024 Age-related cognitive decline (ICD-10 - R41.81) 09/23/2024 Essential tremor (ICD-10 - G25.0) 08/22/2024 Essential hypertension (ICD-10 - I10) 08/22/2024 Frail elderly (ICD-10 - R54) 09/23/2024 Frail elderly (ICD-10 - R54) 09/23/2024 Essential hypertension (ICD-10 - I10) 08/22/2024 Essential tremor (ICD-10 - G25.0) 08/22/2024 Depression screen (ICD-10 - Z13.31) 09/23/2024 Depression screen (ICD-10 - Z13.31) Plan Of Treatment No Information Insurance Providers Payer Name Payer Address Payer Phone Subscriber Number Group Number Insured Name Patient Relationship to Insured Coverage Start Date Coverage End Date [facility] [email or web address] [address] [place] [address] [phone] [id number] Dea Belcher Self - patient is the insured Medical (General) History Medical History History ICD Code hypetension nueropathy congestive heart failure light stroke 6 02/2024 Surgical History Surgery Date(Month/Year) hysterectomy right knee surgery right hip replacement
--- OUTSIDE RECORDS SUMMARY | 2024-12-14 20:02 | XMS_ITS | Clinical Summary ---
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
--- OUTSIDE RECORDS SUMMARY | 2024-12-14 20:03 | XMS_ITS | Encounter Summary ---
Author Organization [facility] Address [address] [place] [address] Care Team Providers Care Rat Farmer Name Role Phone Adriana Lin MD Primary Care Provider Reason for Referral * Outpatient Services (Routine) - Closed Specialty Diagnoses / Procedures Referred By Contac t Referred To Contact Diagnoses Lump or mass in breast Procedures MAMMO BREAST US RT Adriana Lin MD [address] [place] [address] Phone: tel: fax: Referral ID Status Reason Start Date Expiration Date Visits Re quested Visits Authorized [id number] Closed 03/24/2014 04/24/2015 1 1 ECTIONAL OFFICER SERGEANT Encounter Details Date Type Department Care Team (Late st Contact Info) Description 03/24/2014 Ancillary Orders [facility] [address] [address] Adriana Lin MD [address] [place] [address] Lump or mass in breast (Primary Dx) Social History Tobacco Use Types Packs/Day Years Used Date Smoking Tobacco: Never Assessed Comments Unknown Sex and Gender Information Value Date Recorded Sex Assigned at Not on file Legal Sex Female 1:48 PM CORRECTIONAL OFFICER SERGEANT Gender Identity Not on file Sexual Orientation Not on file documented as of this encounter Plan of Treatment Not on file documented as of this encounter Results * MAMMO BREAST US RT (03/31/2014 12:12 PM CORRECTIONAL OFFICER SERGEANT) Anatomical Region Laterality Modality Breast Right Ultrasound 03/31/2014 11:1 4 AM CORRECTIONAL OFFICER SERGEANT Impressions 04/07/2014 6:43 AM CORRECTIONAL OFFICER SERGEANT IMPRESSION: Tender palpable lumps per patient in the right breast 7 o'clock, 11 o'clock, 3 o'clock and axillary tail regions, sonographically occult on today's exam and mammographically occult on recent diagnostic mammogram at [facility]. Patient's symptomatic palpable concerns are of undetermined etiology. Possibility of symptomatic residual benign fibrocystic tissue. Additionally, nonbreast related etiology should be considered. RECOMMENDATION: 1. Conservative therapy for nonspecific focal tenderness: Vitamin E 400 IU daily. Evening [place] oil daily. Focal heat therapy. With patient's GERD, use of NSAIDs should be at the discretion of patient's provider. 2. Surgical consultation for imaging occult palpable concerns as clinically indicated. 3. Yearly screening mammogram. Findings and recommendations discussed with the patient at the time of exam. A verbal and written summary was given to the patient. LEIGH ANN/tang - uploaded from [email or web address] - Narrative 04/07/2014 6:43 AM CORRECTIONAL OFFICER SERGEANT RIGHT BREAST DIAGNOSTIC ULTRASOUND HISTORY: 64-year-old evaluated at [facility] 02/24/2014 with diagnostic mammogram and ultrasound for [...] BREAST DIAGNOSTIC ULTRASOUND HISTORY: 64-year-old evaluated at [facility] 02/24/2014 with diagnostic mammogram and ultrasound for [...] mammographically occult on recent diagnostic mammogram at [facility]. Patient's symptomatic palpable concerns are of undetermined etiology. Possibility of symptomatic residual benign fibrocystic tissue. Additionally, nonbreast related etiology should be considered. RECOMMENDATION: 1. Conservative therapy for nonspecific focal tenderness: Vitamin E 400 IU daily. Evening [place] oil daily. Focal heat therapy. With patient's GERD, use of NSAIDs should be at the discretion of patient's provider. 2. Surgical consultation for imaging occult palpable concerns as clinically indicated. 3. Yearly screening mammogram. Findings and recommendations discussed with the patient at the time of exam. A verbal and written summary was given to the patient. CLINTONC/tang - uploaded from [email or web address] - us Adriana Lin MD MAMMO ORDERABLES Final Result documented in this encounter Visit Diagnoses Diagnosis Lump or mass in breast- Primary Lump or mass in breast documented in this encounter Care Teams Rat Farmer Relationship Specialty Start Date End Date Adriana Lin MD [address] [place] [phone] PCP - General Family Practice 03/31/14 documented as of this encounter
[2024-12-14 20:07] LABS: ABG PCO2 30.3 mmHg (35-45); ABG PH Result 7.47 (7.35-7.45); Arterial Blood Gas Hematocrit 31.2 % (37-47); Blood Gas Allen Test Pos; Blood Gas Sample Site Brachial, right; Blood Gas Sample Type Arterial; Blood Gas Tidal Volume 0.28; HCO3 ABG 21.8 mmol/L (22-26); PEEP 8.0 cmH20; PO2 ABG 242.0 mmHg (80.0-100.0); PO2 FiO2 Ratio Arterial Blood 484
[2024-12-14 20:11] LABS: Hematocrit 29.0 % (36-47); Hemoglobin 9.30 g/dL (11.27-16.99); Mean Corpuscular HGB Conc 32.1 g/dL (30-55); Mean Corpuscular Hemoglobin 32.0 pg (27-33); Mean Corpuscular Volume 99.7 fl (85-98); Platelet Count 150 10^3/cmm (157-399); Red Blood Count 2.91 10^6/uL (3.85-5.65); White Blood Count 10.39 10^3/uL (3.29-11.43)
[2024-12-14] MEDS: fentaNYL 1,000 MCG/100 ML BAG 2.5 MCG IV (20:21)
[2024-12-14 20:28] LABS: Slide Review Slide Review Perform
[2024-12-14 20:30] LABS: Lactic Sepsis W/Reflex 2.3 mmol/L (0.5-2.2)
[2024-12-14 20:31] LABS: Alanine Aminotransferase 28 U/L (0-33); Albumin Level 1.9 g/dL (3.5-5.2); Alkaline Phosphatase 66 U/L (35-105); Calcium 8.2 mg/dL (8.5-10.5); Carbon Dioxide 19 mmol/L (22-29); Chloride 101 mmol/L (98-107); Globulin 3.3 g/dL (1.3-4.6); Glucose 124 mg/dL (65-115); Magnesium 2.2 mg/dL (1.7-2.3); Osmolality Calculated 307 mOsm/kg (285-295); Sodium 134 mmol/L (136-145); Total Protein 5.2 g/dL (6.6-8.7)
[2024-12-14] MEDS: piperacillin-tazobactam 4.5 GM in sodium chloride 0.9% (plus) 50 ML IV (20:35)
[2024-12-14 21:07] LABS: Creatinine Clr Calc Pharmacy 13.6159
[2024-12-14 21:08] LABS: Anion Gap 18.8 (5-19); Aspartate Amino Transferase 41 U/L (0-32); Blood Urea Nitrogen 90 mg/dL (8-23); Potassium 4.8 mmol/L (3.5-5.1)
[2024-12-14] MEDS: norepinephrine 4 MG/250 ML BAG 18.75 MG IV (21:10)
[2024-12-14 21:11] LABS: Reflex Lactate Order REFLEX LACTIC ORDERD
[2024-12-14 21:37] LABS: Absolute Segmented Neutrophil 8.0 10/cmm (1.6-7.1); Add RBC Morph Yes; Total Cells Counted 100 (0-100)
[2024-12-14 21:38] LABS: Atypical Lymphs 0.0 % (0-5); Band Neutrophils Absolute 1.7 10^3/cmm (0.0-1.2); Hypochromasia Trace; Macrocytosis 1+
[2024-12-14 21:39] LABS: Anisocytosis Trace; RBC Morph Comp Yes
[2024-12-14 21:49] LABS: Troponin(5th) Baseline 40 ng/L (0-10)
--- NOTE | 2024-12-14 22:06 | CTR_ITS ---
PROCEDURE INFORMATION: Exam: CT Abdomen And Pelvis Without Contrast Exam date and time: 12/14/2024 10:14 PM Age: 74 years old Clinical indication: Abnormal findings; Abnormal lab test; Abnormal kidney function lab tests and other: Elevated ast and crp; Acute renal failure with bun 0f 90 and creat of 2.7. Elevated ast and crp of 70. ; Additional info: Abdominal pain TECHNIQUE: Imaging protocol: Computed tomography of the abdomen and pelvis without contrast. Radiation optimization: All CT scans at this facility use at least one of these dose optimization techniques: automated exposure control; mA and/or kV adjustment per patient size (includes targeted exams where dose is matched to clinical indication); or iterative reconstruction. COMPARISON: CT abdomen pelvis w con* [id number] 06/07/2018 7:12 PM RADIATION DOSE METRICS: Total DLP (mGy-cm): 566.92 FINDINGS: Tubes, catheters and devices: Enteric feeding tube is present. Lungs: Subsegmental atelectasis of the lung bases including an area focal rounded atelectasis linear atelectasis of the lung bases. Heart: Trace pericardial effusion. Liver: Normal. No mass. Gallbladder and biliary ducts: The gallbladder is surgically absent. Pancreas: Normal. No ductal dilation. Spleen: Normal. No splenomegaly. Adrenal glands: Normal. No mass. Kidneys and ureters: Normal. No hydronephrosis. Stomach and bowel: Moderate sized rectal stool ball. There is some presacral stranding because of this. No obstruction of the small bowel. Moderate amount of retained stool in the colon from constipation. Appendix: No evidence of appendicitis. Intraperitoneal space: Unremarkable. No free air. No significant fluid collection. Vasculature: Moderate abdominal aorta atherosclerosis. Lymph nodes: Unremarkable. No enlarged lymph nodes. Urinary bladder: The urinary bladder is decompressed around a Santiago catheter. Iatrogenically introduced intraluminal air. Reproductive: Unremarkable as visualized. Bones/joints: There are old rib fractures. Age indeterminate compression deformities of the T10 and T11 vertebral body. Right hip total arthroplasty changes. Scoliotic changes of the visualized spine. Soft tissues: Anasarca. CT/CT abdomen pelvis wo con [id number] IMPRESSION: 1. Moderately sized rectal stool ball. Correlate for fecal impaction. There is some presacral fluid and stranding which may be related to superimposed stercoral colitis. 2. Small pericardial effusion. 3. Age indeterminate T10 and T11 vertebral body compression fractures. Correlate with site specific tenderness to assess acuity.
--- NOTE | 2024-12-14 22:18 | ED_ITS ---
HPI - Altered Mental Status 2 General: Chief Complaint: Altered Mental Status Stated Complaint: UNRESPONSIVE Time Seen by Provider: 12/14/24 19:46 History of Present Illness: 74-year-old female brought in by suhas gaston from home. Evidently she was found nonresponsive. According to EMS, she had become less and less responsive over the last few days. No definite complaints of chest pain or shortness of breath. Evidently the patient has a history of dementia but is usually somewhat conversant. Blood pressures were in the 70s over 20s initially. Seem to respond to fluid bolus. She has had 1.5 L of fluid bolus en route to the hospital. Current blood pressure is 100 systolic. She is still not responding. GCS is 4 on her arrival. Blood sugar by EMS was in the 160s. Related Data Home Medications ?Medication ?Instructions ?Recorded ?Confirmed nitroglycerin 0.4 mg sublingual 0.4 mg sublingual Q5M PRN Chest 04/08/19 11/17/21 tablet (Nitrostat) Pain multivitamin (Multiple Vitamins 1 tab PO DAILY@0600 11/17/21 tablet) glucosam 750 mg-chondroi 100 1 tab PO DAILY@0600 07/1111/17/21 mg-hyalur 1.65 mg-CF borate 108 mg tablet ([email or web address]) Previous Rx's ?Medication ?Instructions ?Recorded tramadol 50 mg tablet 50 mg PO BID PRN pain (scale score 12/16/19 7-10) #60 tabs simvastatin 20 mg tablet 20 mg PO DAILY@0600 #90 tabs 09/28/20 albuterol sulfate 90 mcg/actuation 2 puff inhalation Q 4H PRN 06/09/21 aerosol inhaler (ProAir HFA) shortness of breath or wh eezing #18 grams amitriptyline 10 mg tablet 10 mg PO DAILY@0600 #90 tab s 06/09/21 buspirone 10 mg tablet 10 mg PO BID PRN anxiety #60 tabs 06/09/21 cyanocobalamin (vitamin B-12) 2,500 mcg sublingual VICKI LY@0600 06/09/21 2,500 mcg sublingual tablet #90 tabs (Vitamin B-12) duloxetine 30 mg capsule,delayed See Rx Instructions . Route 06/09/21 release .COMPLEX #90 caps duloxetine 60 mg capsule,delayed 60 mg PO DAILY #90 ca ps 06/09/21 release (Cymbalta) memantine 10 mg tablet (Namenda) 10 mg PO DAILY@0600 # 90 tabs 06/09/21 pantoprazole 40 mg tablet,delayed 40 mg PO BID@0600,18 00 #180 tabs 06/09/21 release (Protonix) pramipexole 0.25 mg tablet 0.25 mg PO BEDTIME@2000 #90 tabs 06/09/21 levothyroxine 25 mcg capsule 25 mcg PO DAILY@0600 #90 caps 06/10/21 gabapentin 100 mg capsule 100 mg PO BID@0600,1800 pain #90 01/06/22 caps isosorbide mononitrate 30 mg 30 mg PO BID@0600,1800 #6 0 tabs 07/11/22 tablet,extended release 24 hr metoprolol succinate 25 mg 25 mg PO DAILY@0600 #60 tab s 07/13/22 tablet,extended release 24 hr hydrocodone 5 mg-acetaminophen 325 1 tab PO Q6H PRN pa in #14 tabs 10/27/24 mg tablet ondansetron 4 mg disintegrating 4 mg PO Q6H PRN nausea and 10/27/24 tablet vomiting #14 tabs Allergies Allergy/AdvReac Type Severity Reaction Status Date / Time amoxicillin AdvReac nauseated Verified 12/14/21 08:11 clavulanic acid (From AdvReac nauseated Verified 12/14/21 08:11 Augmentin) PFSH ED 2 PFSH: Medical History (Updated 12/15/24 @ 02:48 by Arthur Sanford DO) Cognitive decline 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 Keane. 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 placement S/P sclerotherapy of varicose veins S/P hysterectomy Family History Mother CAD (coronary artery disease) unknown age of onset Diabetes Hypertension Myocardial infarct Sister Anesthesia complication Denies family history of Clotting disorder Dementia Chronic kidney disease (CKD) Suicide Bleeding disorder Lung disease Cancer Stroke Social History Smoking and tobacco/nicotine status: never used tobacco/nicotine Alcohol intake: never Substance/Drug Use: never Household members: spouse Marital status: Current occupational status: retired Physical Exam 2 Const: EXAM LIMITATIONS: altered mental status GENERAL APPEARANCE: ill appearing (Critically) and frail appearing ORIENTATION/CONSCIOUSNESS: Yes patient obtunded HENMT: COMMON NORMALS: normocephalic and atraumatic HEAD & SCALP: n ormocephalic and atraumatic FACE & SINUS: face symmetric NOSE: Normal nares present MOUTH: moist mucous membranes abnormal Details: cracked and parched Eye: COMMON NORMALS: Equal, round and reactive pupils present (Sluggish) P UPIL: Yes Equal, round and reactive pupils present (Sluggish) Neck/C-Spine: GENERAL: Yes trachea midline Chest: CHEST: Yes Symmetrical chest wall rise Resp: EFFORT & INSPECTION: Yes symmetric chest movement, Yes decreased respiratory effort and Yes labored Cardio: COMMON NORMALS: regular rate and regular rhythm RATE: regular rate RHYTHM: regular rhythm GI: COMMON NORMALS: Soft to palpation PALPATION: Yes Soft to palpation Neuro: FADI COMA SCALE: document GCS findings Fadi coma scale eye opening: None Chinquapin coma scale verbal response: Sounds [place]inqu[place] coma scale motor response: None Fadi coma scale total score: 4 Skin: NARRATIVE SKIN EXAM: Somewhat large sacral decubitus ulcer with surrounding erythema and eschar formation. Procedures Intubation Time out performed: No sedative: Etomidate Mg Given: 15 paralytic: Succinylcholine Mg Given: 100 Laryngoscope: Andrey Assist Device Used: fiber optic device ET Tube Size: 7.5 ET Tube Uncuffed: No Tube Secured Depth (cm): 23 Tube Secured Location: lips Tube Placement Confirmation: visualized tube passing through cords, equal breath sounds bilaterally and confirmation by capnometry Patient Tolerated Procedure: well and no complications Intubation Complications: none Course 2 Vital Signs: Vital signs: Vital Signs Temperature 97.2 F L 12/14/24 19:33 Pulse Rate 55 L 12/15/24 01:35 Respiratory Rate 14 12/15/24 01:35 Blood Pressure 91/63 12/15/24 01:35 Pulse Oximetry 100 12/15/24 01:35 Oxygen Delivery Me thod Mechanical Ventil ation 12/14/24 23:44 Fraction of Inspir ed Oxygen 30 12/14/24 23:25 MDM - Altered Mental Status Medical Decision Making The patient appeared to be oxygenating by pulse ox. She is somewhat cold. Oxygen saturations by forehead pulse ox were in the 95+ percentage range. However, she remained unresponsive. GCS of 4. Proceeded with elective intubation without complication. She is given an additional liter bolus here. This is 2.5 L total which is more than a sepsis bolus from this 48 kg patient. Likely because of sedation from intubation and ventilator support, blood pressure was still mildly low. She was placed on Levophed for blood pressure support. She is given vancomycin and Zosyn for sepsis with shock. She has a large decubitus ulcer, with some redness, drainage, and eschar formation. Her initial EKG showed a sinus rhythm with minimal ST wave change in 2 3 aVF, less than half millimeter. 2-hour repeat shows similar changes. Initial troponin was 40 with 2-hour 49. Her BUN is 90, creatinine is 2.7, bicarb 19. Initial lactate was elevated. Hemoglobin is 9.3. Platelet count 150. Chest x-ray shows no acute findings with properly placed endotracheal tube and enteric tube. Head CT is nonacute. CT shows fecal impaction, small pericardial effusion. She will go to the ICU. We will continue antibiotics and fluid support. Hospitalist has seen the patient in the ER. Lab Data 12/14/24 19:49 12/14/24 19:49 Radiology Impressions Chest X-Ray 12/14/24 19:46 IMPRESSION: 1. No acute finding. 2. Appropriately positioned endotracheal tube and enteric tube. Head CT 12/14/24 19:46 IMPRESSION: 1. No acute intracranial finding. 2. Chronic small-vessel ischemic changes and atrophy. Abdomen/Pelvis CT 12/14/24 22:06 IMPRESSION: 1. Moderately sized rectal stool ball. Correlate for fecal impaction. There is some presacral fluid and stranding which may be related to superimposed stercoral colitis. 2. Small pericardial effusion. 3. Age indeterminate T10 and T11 vertebral body compression fractures. Correlate with site specific tenderness to assess acuity. Laboratory Results WBC 10.39 10^3/uL (3.29-11.43) 12/14/24 19:49 RBC 2.91 10^6/uL (3.85-5.65) L 12/14/24 19:49 Hgb 9.30 g/dL (11.27-16.99) L 12/14/24 19:49 Hct 29.0 % (36-47) L 12/14/24 19:49 MCV 99.7 fl (85-98) H 12/14/24 19:49 MCH 32.0 pg (27-33) 12/14/24 19:49 MCHC 32.1 g/dL (30-55) 12/14/24 19:49 RDW 14.1 % (12.1-15.1) 12/14/24 19:49 Plt Count 150 10^3/cmm (157-399) L 12/14/24 19:49 MPV 11.4 fL (7.4-10.4) H 12/14/24 19:49 Lymph % (Auto) Not Reportable 12/14/24 19:49 Mathews % (Auto) Not Reportable 12/14/24 19:49 Lymph # (Auto) Not Reportable 12/14/24 19:49 Mathews # (Auto) Not Reportable 12/14/24 19:49 Total Counted 100 (0-100) 12/14/24 19:49 Atypical Lymphs % 0.0 % (0-5) 12/14/24 19:49 Absolute Neutrophils 9.7 10^3/cmm (1.4-6.5) H 12/14/24 19:49 Segmented Neutrophils 77 % 12/14/24 19:49 Band Neutrophils 16.0 % 12/14/24 19:49 Absolute Lymphocytes 0.4 10^3/cmm (1.2-3.4) L 12/14/24 19:49 Lymphocytes (Manual) 4 % 12/14/24 19:49 Monocytes (Manual) 1.0 % 12/14/24 19:49 Absolute Monocytes 0.1 10^3/cmm (0.1-0.6) 12/14/24 19:49 Eosinophils (Manual) 0 % 12/14/24 19:49 Absolute Eosinophils 0.0 10^3/cmm (0.0-0.7) 12/14/24 19:49 Basophils (Manual) 0.0 % 12/14/24 19:49 Absolute Basophils 0.0 10^3/cmm (0.0-0.2) 12/14/24 19:49 Metamyelocytes 2.0 % 12/14/24 19:49 Platelet Estimate Normal (Normal) 12/14/24 19:49 Hypochromasia Trace 12/14/24 19:49 Anisocytosis Trace 12/14/24 19:49 Macrocytosis 1+ H 12/14/24 19:49 Specimen Type Arterial 12/14/24 19:50 Sample Site Brachial, right 12/14/24 19:50 ABG pH 7.47 (7.35-7.45) H 12/14/24 19:50 ABG pCO2 30.3 mmHg (35-45) L 12/14/24 19:50 ABG pO2 242.0 mmHg (80.0-100.0) H 12/14/24 19:50 ABG PO2/FiO2 Ratio 484 12/14/24 19:50 ABG HCO3 21.8 mmol/L (22-26) L 12/14/24 19:50 ABG Base Excess -1.4 mmol/L (-2.0-2.0) 12/14/24 19:50 Christian Test Pos 12/14/24 19:50 Hematocrit 31.2 % (37-47) L 12/14/24 19:50 O2 Delivery Device Vent 12/14/24 19:50 FiO2 50.0 % 12/14/24 19:50 Tidal Volume 0.28 12/14/24 19:50 PEEP 8.0 cmH20 12/14/24 19:50 Private Branch Exchange Service Advisor ID [email or web address] 12/14/24 19:50 Sodium 134 mmol/L (136-145) L 12/14/24 19:49 Potassium 4.8 mmol/L (3.5-5.1) 12/14/24 19:49 Chloride 101 mmol/L (98-107) 12/14/24 19:49 Carbon Dioxide 19 mmol/L (22-29) L 12/14/24 19:49 Anion Gap 18.8 (5-19) 12/14/24 19:49 BUN 90 mg/dL (8-23) H* D 12/14/24 19:49 Creatinine 2.7 mg/dL (0.5-0.9) H 12/14/24 19:49 GFR Calculation Not Reportable 12/14/24 19:49 Glucose 124 mg/dL (65-115) H 12/14/24 19:49 Calculated Osmolality 307 mOsm/kg (285-295) H 12/14/24 19:49 Lactic Acid 2.3 mmol/L (0.5-2.2) H 12/14/24 19:49 Lactic Acid (Sepsis) 1.7 mmol/L (0.5-2.2) 12/14/24 22:48 Calcium 8.2 mg/dL (8.5-10.5) L 12/14/24 19:49 Magnesium 2.2 mg/dL (1.7-2.3) 12/14/24 19:49 Total Bilirubin 0.7 mg/dL (0.15-1.2) 12/14/24 19:49 AST 41 U/L (0-32) H 12/14/24 19:49 ALT 28 U/L (0-33) 12/14/24 19:49 Alkaline Phosphatase 66 U/L (35-105) 12/14/24 19:49 Creatine Kinase 545 U/L (26-192) H* 12/14/24 19:49 Troponin T Baseline 40 ng/L (0-10) H 12/14/24 19:49 Troponin T 120 Minute 49.03 ng/L (0-10) H 12/14/24 21:42 Delta Troponin T 9.03 ABS# (0-10) 12/14/24 21:42 C-Reactive Protein 68.8 mg/L (0.0-4.9) H 12/14/24 19:49 Total Protein 5.2 g/dL (6.6-8.7) L 12/14/24 19:49 Albumin 1.9 g/dL (3.5-5.2) L 12/14/24 19:49 Globulin 3.3 g/dL (1.3-4.6) 12/14/24 19:49 Urine Color Dark yellow (Yellow) A 12/14/24 22:00 Urine Appearance Cloudy (CLEAR) A 12/14/24 22:00 Urine pH 5.0 (5-7) 12/14/24 22:00 Ur Specific [place] 1.018 (1.005-1.030) 12/14/24 22:00 Urine Protein 1+ (Negative) A 12/14/24 22:00 Urine Glucose (UA) Negative (Normal) 12/14/24 22:00 Urine Ketones Trace (Negative) 12/14/24 22:00 Urine Blood 2+ (Negative) A 12/14/24 22:00 Urine Nitrate Negative (Negative) 12/14/24 22:00 Urine Bilirubin 1+ (Negative) H 12/14/24 22:00 Urine Urobilinogen 1.0 mg/dL (Negative) 12/14/24 22:00 Ur Leukocyte Esterase 1+ (Negative) A 12/14/24 22:00 Urine RBC 3-5 /hpf (0-2) 12/14/24 22:00 Urine WBC 6-10 /hpf (0-5) 12/14/24 22:00 Ur Squamous Epith Cells 6-10 /hpf (0-5) 12/14/24 22:00 Amorphous Sediment Not Reportable 12/14/24 22:00 Urine Bacteria 1+ /hpf (NONE) H 12/14/24 22:00 Hyaline Casts 28.53 /lpf 12/14/24 22:00 Fine Granular Casts 0-4 /lpf H 12/14/24 22:00 All radiology interpretation(s) finalized by discharge Critical Care Time 2 Critical Care Time: Critical Care Time: Yes Total Critical Care Time: 50 Attestation: This case had a high probability of a clinically significant, sudden, or life threatening deterioration of this patient's condition which required my full and direct attention, intervention and personal management. Time is independent of any procedures performed. Discharge Plan Discharge Patient Disposition: Admitted As Inpatient Admit Provider: Leticia Espinosa Clinical Impression: Septic shock, Acute renal failure Condition: Critical Coding Level of Care Code ED Senior Underwriter for Tatyana Rocha
[2024-12-14 22:25] LABS: Troponin 5 2HR 49.03 ng/L (0-10); Troponin 5 2HR Delta 9.03 ABS# (0-10)
[2024-12-14 22:36] LABS: Glucose Urine UA Negative (Normal); Nitrate Urine Negative (Negative); Specific Gravity, Urine 1.018 (1.005-1.030)
[2024-12-14 22:40] LABS: Add Urine Microscopic? YES
--- NOTE | 2024-12-14 22:51 | ECG_ITS ---
[facility]: 2024-12[facility]14 Pat Name: Dea Belcher Department: Room: Gender: Female Clinical Informatics Director: : 1950 Requested By: Arthur Linton Order Number: [id number] Sarah MD: Elsie Keane M.D. Measurements Intervals [place] Rate: 52 P: 59 IN: 155 QRS: 65 QRSD: 85 T: 90 QT: 496 QTc: 464 Interpretive Statements SINUS BRADYCARDIA LOW QRS VOLTAGE IN EXTREMITY LEADS [QRS DEFLECTION < 0.5 mV IN LIMB LEADS] ST ELEVATION, CONSIDER INFERIOR INJURY [MARKED ST ELEVATION W/O NORMALLY INFLECTED T-WAVE IN II/aVF] ACUTE [place] Compared to ECG 12/14/2024 19:43:34 ST (T wave) deviation now present Myocardial infarct finding now present Sinus rhythm no longer present Electronically Signed On 12-21-2024 17:56:53 CDT by Elsie Keane M.D. [email or web address]
[2024-12-14 22:56] LABS: UA Slide Review UA Slide Review Perf
[2024-12-14 23:08] LABS: Lactic Acid level (Lactate) 1.7 mmol/L (0.5-2.2)
[2024-12-15] VITALS (11 sets, daily range): BP systolic 91; BP diastolic 63; PULSE 55–73; RESP 9–15; O2SAT 97–100
--- NOTE | 2024-12-15 02:28 | ECG_ITS ---
[employer] Test Date: 2024-12-15 Pat Name: Dea Belcher Department: Room: [facility] Gender: Female Stave Bolt Equalizer: : 1950 Requested By: Arthur Linton Order Number: [id number] Sarah MD: Elsie Keane M.D. Measurements Intervals [place] Rate: 57 P: 68 [place]: 159 QRS: 73 QRSD: 85 T: 89 QT: 460 QTc: 451 Interpretive Statements SINUS BRADYCARDIA ST ELEVATION, CONSIDER INFERIOR INJURY [MARKED ST ELEVATION W/O NORMALLY INFLECTED T-WAVE IN II/aVF] ACUTE [place] Compared to ECG 12/14/2024 23:21:10 No significant changes Electronically Signed On 12-21-2024 17:55:15 CDT by Elsie Keane M.D. [email or web address]
--- NOTE | 2024-12-15 03:08 | P.HP_ITS ---
Providers/Chief Complaint 2 Admitting Physician: Leticia Espinosa MD--- patient seen after 12 midnight Primary Care Provider: Mitchel Hamilton MD Chief Complaint: UNRESPONSIVE History of Present Illness Dea Belcher is a 74 year old female with no significant medical history patient lives at home with her . The called 911 because of patient's obtundation, unresponsiveness when the EMS arrived blood pressure was 70/20 patient was unresponsive. Patient was covered with thick dried stools. Patient was taken to the ED. At the ED blood pressure was 60/40 following a liter bolus given by the EMS. Patient received another liter in the emergency room bolus GSC scale was 4 patient was intubated. Systolic blood pressure came up to 95/65. Patient is still not responsive. Patient was started on Levophed and was placed on propofol for to tolerance. EKG showed less than half a millimeter ST elevation in lead 2, 3 and aVL and an interval EKG was done it showed more ST elevation. Case discussed with Dr. Lemus who is souvenir and novelty maker who did not think it is a STEMI. Patient is septic. Patient had received a dose of vancomycin and Zosyn in the emergency room following a blood culture patient was sent to ICU for further evaluation. Patient had unstageable macerated decubitus of the sacral may need debridement and in that area stools were cleaned off where she was very soiled. Patient also has pustular skin lesion all over the body especially the legs. Patient creatinine went up to 2.7 from a normal creatinine of 0.9 on 10/27/2024. Patient is with ATN. Review of Systems 2 Narrative: System review upon 10 organ review we are very unlimited as patient is not verbally responsive patient is obtunded and essentially unresponsive cannot contribute to review of system. Medications/Allergies Home Medications ?Medication ?Instructions ?Recorded ?Confirmed ?Last Taken ?Type nitroglycerin 0.4 mg sublingual 0.4 mg sublingual Q5M PRN Chest 04/08/19 11/17/21 Unknown History tablet (Nitrostat) Pain tramadol 50 mg tablet 50 mg PO BID PRN pain (scale score 12/16/19 06/20/21 07/10/20 Rx 7-10) #60 tabs multivitamin (Multiple Vitamins 1 tab PO DAILY@0600 11/17/21 07/10/20 History tablet) glucosam 750 mg-chondroi 100 1 tab PO DAILY@0600 07/1111/17/21 07/10/20 History mg-hyalur 1.65 mg-CF borate 108 mg tablet ([facility]) simvastatin 20 mg tablet 20 mg PO DAILY@0600 #90 tabs 09/28/20 11/17/21 Unknown Rx albuterol sulfate 90 mcg/actuation 2 puff inhalation Q 4H PRN 06/09/21 11/17/21 Unknown Rx aerosol inhaler (ProAir HFA) shortness of breath or wh eezing #18 grams amitriptyline 10 mg tablet 10 mg PO DAILY@0600 #90 tab s 06/09/21 11/17/21 Unknown Rx buspirone 10 mg tablet 10 mg PO BID PRN anxiety #60 tabs 06/09/21 11/17/21 Unknown Rx cyanocobalamin (vitamin B-12) 2,500 mcg sublingual VICKI LY@0600 06/09/21 11/17/21 Unknown Rx 2,500 mcg sublingual tablet #90 tabs (Vitamin B-12) duloxetine 30 mg capsule,delayed See Rx Instructions . Route 06/09/21 11/17/21 Unknown Rx release .COMPLEX #90 caps duloxetine 60 mg capsule,delayed 60 mg PO DAILY #90 ca ps 06/09/21 11/17/21 Unknown Rx release (Cymbalta) memantine 10 mg tablet (Namenda) 10 mg PO DAILY@0600 # 90 tabs 06/09/21 11/17/21 Unknown Rx pantoprazole 40 mg tablet,delayed 40 mg PO BID@0600,18 00 #180 tabs 06/09/21 11/17/21 Unknown Rx release (Protonix) pramipexole 0.25 mg tablet 0.25 mg PO BEDTIME@2000 #90 tabs 06/09/21 11/17/21 Unknown Rx levothyroxine 25 mcg capsule 25 mcg PO DAILY@0600 #90 caps 06/10/21 11/17/21 Unknown Rx gabapentin 100 mg capsule 100 mg PO BID@0600,1800 pain #90 01/06/22 Unknown Rx caps isosorbide mononitrate 30 mg 30 mg PO BID@0600,1800 #6 0 tabs 07/11/22 Unknown Rx tablet,extended release 24 hr metoprolol succinate 25 mg 25 mg PO DAILY@0600 #60 tab s 07/13/22 Unknown Rx tablet,extended release 24 hr hydrocodone 5 mg-acetaminophen 325 1 tab PO Q6H PRN pa in #14 tabs 10/27/24 Unknown Rx mg tablet ondansetron 4 mg disintegrating 4 mg PO Q6H PRN nausea and 10/27/24 Unknown Rx tablet vomiting #14 tabs Allergies Allergy/AdvReac Type Severity Reaction Status Date / Time amoxicillin AdvReac nauseated Verified 12/14/21 08:11 clavulanic acid (From AdvReac nauseated Verified 12/14/21 08:11 Augmentin) PFSH Acute 2 PFSH: Medical History Cognitive decline 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 Keane. GERD (gastroesophageal reflux disease) History of pulmonary embolism Hyperlipidemia H/O methicillin resistant Staphylococcus aureus Hypothyroidism, unspecified MARGARITA (obstructive sleep apnea) Essential (primary) hypertension Surgical History Status post total hip replacement, right Status post right foot surgery History of arthroscopy of left knee S/P total knee arthroplasty S/P cataract extraction History of repair of hiatal hernia S/P cholecystectomy S/P percutaneous transluminal angioplasty ([employer]) with stent placement S/P sclerotherapy of varicose veins S/P hysterectomy Family History Mother CAD (coronary artery disease) unknown age of onset Diabetes Hypertension Myocardial infarct Sister Anesthesia complication Denies family history of Clotting disorder Dementia Chronic kidney disease (CKD) Suicide Bleeding disorder Lung disease Cancer Stroke Social History Smoking and tobacco/nicotine status: never used tobacco/nicotine Alcohol intake: never Substance/Drug Use: never Household members: spouse Marital status: Current occupational status: retired Vitals/I&O/Wt Last Vital Signs Temp 97.2 F L 12/14/24 19:33 Pulse 55 L 12/15/24 01:35 Resp 14 12/15/24 01:35 BP 91/63 12/15/24 01:35 Pulse Ox 100 12/15/24 01:35 O2 Del Method Mechanical Ventilation 12/14/24 23:44 FiO2 30 12/14/24 23:25 12/14/24 12/14/24 12/15/24 14:59 22:59 06:59 Intake Total 321.507 / 321.507 Balance 321.507 / 321.507 Weight last 48 hrs Weight 47.945 kg Physical Exam 2 Narrative: Generally patient is obtunded essentially unresponsive HEENT normocephalic/atraumatic Status post airway intubation-FiO2 30% tidal volumes 275, respiratory rate 14 PEEP of 5 Neck neck is supple Cardiovascular heart rate is regular but bradycardic in the 30s to 40s. Lungs are clear Abdomen is soft nontender nondistended is with Santiago to gravity clear piyush urine Extremities are significant for pustular lesions all through, cool to touch with foot inversion. Patient does not have much strength to the lower extremity Neurology very limited patient is verbally nonresponsive intubated pupils are equal to a 4 mm gauge react to light. Lab studies reviewed and noted - BUN 90 creatinine 2.7, lactate 2.3, creatinine phosphate 545, platelets 150 Data 12/14/24 19:49 12/14/24 19:49 Micro: Microbiology 12/14/24 20:00 Blood Culture - Preliminary Blood SPECIMEN COLLECTED 12/14/24 19:49 Blood Culture - Preliminary Blood SPECIMEN COLLECTED A&P Assessment and plan 1. ATN (acute tubular necrosis): 2. Septic shock: 3. Dehydration: 4. Hypotension: 5. Hypothermia: 6. Abnormal EK. UTI (urinary tract infection): 8. Sacral decubitus ulcer: Plan: #1 Septic shock - Admit to ICU - Patient was obtunded upon presentation and had to be intubated - Severe hypotension from home with the EMS 70/20 unresponsive a bolus of fluid given - At the emergency room blood pressure 60/40 more IV boluses patient started on Levophed -Patient is hypothymia with a core temperature rectal at 92, patient hypotensive all due to sepsis - Pancultured and received a gram of vancomycin and 4.5 g of Zosyn #2 Lactic acidosis - Continue treatment of sepsis - Obtain interval level of lactate #3 Acute cystitis - Antibiotics continued - Follow cultures and optimize accordingly #4 Sacral decubitus unstageable and macerated - Local wound care consultation with surgery consultation for possible debridement - Patient is not diabetic #[address] elevation in lead II, III and aVL in the setting of sepsis - This is pseudo ST elevation not actual ST elevation because of sepsis - Cardiology consulted with Dr. Solis who did not think this is ST elevation - Will continue to treat and monitor #6 GI and DVT prophylaxis in place PDMP PDMP Reviewed: Last Reviewed 12/15/24 03:34 by Leticia Espinosa MD Attestations 2 Medical Necessity Statement*: Obtunded patient quite unresponsive and septic shock meets the criteria for inpatient for a minimum of 2 midnights Coding Level of Care Code 35329 Diagnoses ATN (acute tubular necrosis) N17.0 Septic shock A41.9; R65.21 Dehydration E86.0 Hypotension I95.9 Hypothermia T68.XXXA Abnormal EKG R94.31 UTI (urinary tract infection) N39.0 Sacral decubitus ulcer L89.159 Time Spent (min) 70
[2024-12-15 04:03] LABS: Troponin 5 6HR 51.22 ng/L (0-10); Troponin 5 6HR Delta 11.22 ng/L (0-12)
--- NOTE | 2024-12-15 06:07 | PC.NURSE ---
Upon arrival to unit from ED rectal temp 92.7, placed under diana hugger at that time and temp has slowly increased. Noted no response to painful stimuli and slowly decreased propofol, has continued to have no response, pupils 2mm and nonreactive, has had only urine in tubing of sierra (nothing measurable this shift), titrated levophed to maintain bp with map greater than 65. Seen by Dr. Espinosa approx one hour after arrival. Discussed present condition and skin findings, no new orders. Further reported EKG fidings and reported to Dr. Patel per Dr. Espinosa request, with no further orders.
--- NOTE | 2024-12-15 06:23 | PC.NURSE ---
Skin assessment: Sacrum: [id number] unstageable pressure injury Left upper thigh: 4x3 cm red abrasion right posterior shoulder: 4x3 cm sheared open blister left heel: closed unstageable purple blister left mid back: 3 dime sized abrasions Left medial heel, right lateral heel, right lateral calf: open skin tears Large amount of bruising to bilateral legs in multiple stages of healing, with large amount of abrasions to lower legs.
[2024-12-15] MEDS: norepinephrine 4 MG/250 ML BAG 37.5 MG IV (06:59)
--- NOTE | 2024-12-15 08:56 | USCV_ITS ---
Dea Belcher Age: 74 Gender: F : 1950 Exam Date: 12/15/2024 09:40 Ordering Phys: Etta Verma MD Technologist: SREEKANTH Exam Location: [facility] [place] Indication: Unresponsive, Hypotensive BP: 91 / 63 HR: 71 Rhythm: Sinus Technical Quality: Adequate MEASUREMENTS (Male / Female) Normal Values 2D ECHO LV Diastolic Diameter PLAX 3.1 cm 4.2 - 5.9 / 3.9 - 5.3 cm IVS Diastolic Thickness 0.8 cm 0.6 - 1.0 / 0.6 - 0.9 cm IVS Systolic Thickness 1.3 cm LVPW Diastolic Thickness 0.9 cm 0.6 - 1.0 / 0.6 - 0.9 cm LVPW Systolic Thickness 1.1 cm LVOT Diameter 1.9 cm LV Ejection Fraction 2D Teich 45.9 % LV Ejection Fraction MOD 4C 48.6 % LV Ejection Fraction MOD 2C 53.6 % LV Ejection Fraction 2C AL 50.0 % LA Diameter 2.0 cm RA Systolic Volume 4C AL 14.5 ml RA Systolic Volume 4C MOD 14.0 ml LA Sys Volume AL 11.4 cm cubed LA Sys Volume Index AL 8.5 cm cubed/m squared Aorta at Sinotubular Diameter 2.2 cm M-MODE LA Ao Ratio MM 1.2 AV Cusp Separation MM 1.1 cm DOPPLER AV Peak Velocity 85.0 cm/s LVOT Peak Velocity 69.0 cm/s AV Area Cont Eq vti 2.8 cm squared AV Area Cont Eq pk 2.4 cm squared MV Peak Velocity 56.0 cm/s MV Area PHT 5.3 cm squared Mitral E to A Ratio 0.8 TV Peak Velocity 158.5 cm/s TR Peak Velocity 251.0 cm/s TR Peak Gradient 25.2 mmHg TV Peak E Velocity 50.0 cm/s PV Peak Velocity 78.0 cm/s FINDINGS Left Ventricle Possibly normal LV size with a slightly diminished ejection fraction of around 45 to 50%. The septum and the anteroseptal segments appears to be somewhat hypokinetic since. Segmental wall motion analysis difficult because of poor ultrasonic window. Right Ventricle Right ventricular appears to be mildly dilated with possibly normal ejection fraction. Right Atrium Appears to be mildly dilated Left Atrium The left atrium could not be visualized well. Mitral Valve No gross abnormalities noted. Aortic Valve The leaflets could not be visualized well Tricuspid Valve Trace to mild tricuspid valve regurgitation. Pulmonic Valve Pulmonic valve not well visualized. Pericardium No pericardial effusion. Aorta Normal aortic annulus size. IVC Inferior vena cava not visualized. CONCLUSIONS Possibly normal LV size with a slightly diminished ejection fraction of around 45 to 50%. The septum and the anteroseptal segments appears to be somewhat hypokinetic . Segmental wall motion analysis difficult because of poor ultrasonic window. Right ventricular appears to be mildly dilated with possibly normal ejection fraction. The right atrium appears to be mildly dilated. Left atrium could not be visualized well. Trace to mild tricuspid valve regurgitation. Technically difficult study because of the poor ultrasonic window. Consider GULSHAN, if clinically indicated, to rule out any intracardiac masses Dr Elsie Keane MD FACC (Electronically Signed) Final Date: 15 December 2024 14:44 S
--- NOTE | 2024-12-15 09:00 | CT_ITS ---
WS: [id number] CT CHEST ANGIOGRAPHY WITH REFORMATS HISTORY: Unresponsive, hypotensive requiring vasopressors to R/O PE TECHNIQUE: Contiguous axial images are obtained through the chest during arterial injection of intravenous contrast. Images are reconstructed to evaluate the pulmonary arteries. MIP imaging also reviewed. All CT scans at [facility] use at least one of these dose optimization techniques: automated exposure control; mA and/or kV adjustment per patient size (includes targeted exams where dose is matched to clinical indication); or iterative reconstruction. CONTRAST: Omnipaque 350; 100 mL IV. DLP: 192.99 mGy.cm COMPARISON: 07/11/2020 No central pulmonary embolism. Pulmonary arteries are well-opacified with contrast. There is a single nonocclusive emboli in a segmental branch of the RIGHT lower lobe. No additional emboli identified. No RIGHT heart strain. Very small pericardial effusion and/or pericardial thickening. Ectatic thoracic aorta with no aneurysm. Patient is intubated. Endotracheal tube terminates in a satisfactory position. Nasogastric tube is also present terminating within the stomach antrum. No pneumothorax. Dependent changes at the lung bases but no areas of consolidation. There is mild interstitial thickening throughout both lungs and mild hyperexpansion. No mediastinal or hilar adenopathy. Tricuspid regurgitation into the IVC. Prior cholecystectomy. Suprarenal aortic calcification. There is mesenteric edema and soft tissue anasarca. Indeterminate LEFT adrenal gland hyperplasia. Pancreas appears atrophied but limited evaluation. 50% compression fractures at T11 and T12 were not present on 07/11/2020. No retropulsion of vertebral bodies but there is an increase in the thoracic kyphosis. Prior healed fracture mid sternum. Age-indeterminate LEFT rib fractures. CT/CT angio chest PE protcl [id number] IMPRESSION: 1. No central pulmonary embolism. 2. Single nonocclusive pulmonary filling defect in a segmental branch of the R IGHT lower lobe. 3. No RIGHT heart strain. 4. Normal position of the endotracheal tube and nasogastric tube. 5. Mild dependent changes at the lung bases and very slight interstitial thick ening throughout both lungs but no pneumonia. 6. No pneumothorax. 7. Mesenteric and soft tissue anasarca. 8. Age-indeterminate T11 and T12 50% compression fractures. New since 1.
--- NOTE | 2024-12-15 09:00 | PHA.VACGOAL ---
Vancomycin Goal - Goal Vancomycin Goal:: 15-20 mg/L Vancomycin Indication:: Other - Therapy Current therapy:: Pip/Tazo Day of therpy:: Day []of [] . Actual body weight (kg): 95 lb - Data Labs: WBC 10.39 10^3/uL (3.29-11.43) 12/14/24 19:49 RBC 2.91 10^6/uL (3.85-5.65) L 12/14/24 19:49 Hgb 9.30 g/dL (11.27-16.99) L 12/14/24 19:49 Hct 29.0 % (36-47) L 12/14/24 19:49 MCV 99.7 fl (85-98) H 12/14/24 19:49 MCH 32.0 pg (27-33) 12/14/24 19:49 MCHC 32.1 g/dL (30-55) 12/14/24 19:49 RDW 14.1 % (12.1-15.1) 12/14/24 19:49 Sodium 134 mmol/L (136-145) L 12/14/24 19:49 Potassium 4.8 mmol/L (3.5-5.1) 12/14/24 19:49 Chloride 101 mmol/L (98-107) 12/14/24 19:49 Carbon Dioxide 19 mmol/L (22-29) L 12/14/24 19:49 Anion Gap 18.8 (5-19) 12/14/24 19:49 BUN 90 mg/dL (8-23) H* D 12/14/24 19:49 Creatinine 2.7 mg/dL (0.5-0.9) H 12/14/24 19:49 GFR Calculation Not Reportable 12/14/24 19:49 Last dialysis session:: N/A Treatment plan:: new consult Regimen:: 1000 MG DOSE GIVEN. DUE TO RENAL FUNCTION, PLAN TO PULSE DOSE. Follow up:: WILL OBTAIN TROUGH 24 HOURS POST LOADING DOSE 12/15 @1930
[2024-12-15] MEDS: piperacillin-tazobactam 3.375 GM in sodium chloride 0.9% (plus) 50 ML IV ×2 (09:34→21:43)
--- NOTE | 2024-12-15 09:46 | PC.PHAR ---
Pt transferred medications from [facility] in 2021, to [facility]. Several medications dropped off pt list and were never filled at [facility]. Levothyroxine 25mcg, Pramiprexole 0.25mg, Protonix 40mg, and Simvastatin 20mg. Current med list was verified with [facility]. They have several medications ready for package pick up.
[2024-12-15] MEDS: iohexol 350 mg/mL 500 mL Btl (per mL) IV (11:06)
[2024-12-15] MEDS: norepinephrine 4 MG/250 ML BAG 22.5 MG IV ×2 (12:42→20:00)
[2024-12-15] MEDS: fentaNYL 1,000 MCG/100 ML BAG 5 MCG IV (12:42)
--- NOTE | 2024-12-15 12:58 | PC.NURSE ---
This morning, this nurse spoke to the and attempted to give him an update on the patient's condition. The phone connection was very poor and kept cutting in/out. We weren't able to communicate well. Nurse is not sure if the was able to understand the conversation. Later in the afternoon, the called back and spoke to the private secretary. Again the phone connection was very poor. The private secretary asked if he would be coming in, but was unable to understand his response. During morning bedside report, the fast food shift supervisor nurse Paco told life underwriter that the seemed to be unable to comprehend the severity of the patient's condition and that last night he asked if we could just remove her breathing tube and let her go home since he has an appointment in [place] the next day. He left the facility shortly after.
[2024-12-15 13:54] LABS: Bacillus cereus group Not Detected (NOT DETECT); Bacillus subtillis group Not Detected (NOT DETECT); Corynebacterium Not Detected (NOT DETECT); Cutibacterium acnes (P.acnes) Not Detected (NOT DETECT); Enterococcus faecalis Not Detected (NOT DETECT); Enterococcus faecium Not Detected (NOT DETECT); Listeria Not Detected (NOT DETECT); Micrococcus Not Detected (NOT DETECT); Pan Candida Not Detected (NOT DETECT); Pan Gram-Negative Not Detected (NOT DETECT); Staphylococcus epidermidis Not Detected (NOT DETECT); Staphylococcus lugdunensis Not Detected (NOT DETECT); Staphylococcus species Not Detected (NOT DETECT); Streptococcus anginosus group Not Detected (NOT DETECT); Streptococcus pyogenes Detected (NOT DETECT); Streptococcus species Detected (NOT DETECT)
--- NOTE | 2024-12-15 14:48 | PC.NURSE ---
Oliguria..... Patient has only had 13ml/hr average urine output today. Nurse alerted Dr verma. REceived orders for LR fluid bolus and noninvasive fluid challenge. Noninvasive challenge shows not fluid responsive. Nurse alerted Dr Verma. Orderd to continue with LR bolus not for blood presure, but for prerenal/JAI. WIll minitor closely for signs of FVO.
[2024-12-15] MEDS: heparin 5,000 unit/mL INJ 1 mL 5000 UNIT SUBCUT (15:16)
[2024-12-15] MEDS: pantoprazole 40 mg SDV IVP (16:53)
--- NOTE | 2024-12-15 17:31 | P.CONIM_ITS ---
Providers/Reason For Consult 2 Consulting Physician/Specialty*: General Surgery Reason for Consult*: Sacral ulcer Attending Physician: Etta Verma MD Primary Care Provider: Mitchel Hamilton MD History of Present Illness History of Present Illness Dea Belcher is a 74 year old female who was admitted to the hospital on septic shock currently intubated with poor response. I was consulted for evaluation of possible sacral decubitus ulcer as source for the patient's sepsis. Patient is unresponsive all the information I obtained was from the bedside nurse, patient is not at the bedside and per report he does not have a complete understanding of patient medical condition. Review of Systems 2 General: Reports: ROS unobtainable due to endotracheal tube Medications/Allergies Home Medications ?Medication ?Instructions ?Recorded ?Confirmed ?Last Taken ?Type nitroglycerin 0.4 mg sublingual 0.4 mg sublingual Q5M PRN Chest 04/08/19 12/15/24 Unknown History tablet (Nitrostat) Pain cyanocobalamin (vitamin B-12) 2,500 mcg sublingual VICKI LY@0600 06/09/21 12/15/24 Unknown Rx 2,500 mcg sublingual tablet #90 tabs (Vitamin B-12) isosorbide mononitrate 30 mg 30 mg PO BID@0600,1800 #6 0 tabs 07/11/22 12/15/24 Unknown Rx tablet,extended release 24 hr metoprolol succinate 25 mg 25 mg PO DAILY@0600 #60 tab s 07/13/22 12/15/24 Unknown Rx tablet,extended release 24 hr hydrocodone 5 mg-acetaminophen 325 1 tab PO Q6H PRN pa in #14 tabs 10/27/24 12/15/24 Unknown Rx mg tablet ondansetron 4 mg disintegrating 4 mg PO Q6H PRN nausea and 10/27/24 12/15/24 Unknown Rx tablet vomiting #14 tabs buspirone 7.5 mg tablet 7.5 mg PO BID 12/15/2412/15 Unknown History duloxetine 30 mg capsule,delayed 30 mg PO DAILY 12/15/24 Unknown History release duloxetine 60 mg capsule,delayed 60 mg PO DAILY 12/15/24 Unknown History release loratadine 10 mg tablet (Claritin) 10 mg PO DAILY 12/0112/15/24 Unknown History memantine 10 mg tablet 10 mg PO DAILY 12/15/2412/01 Unknown History primidone 50 mg tablet 50 mg PO DAILY 12/15/2412/01 Unknown History propranolol 60 mg capsule,24 60 mg PO DAILY 12/15/24 0 12/15/24 Unknown History hr,extended release Allergies Allergy/AdvReac Type Severity Reaction Status Date / Time amoxicillin AdvReac nauseated Verified 12/14/21 08:11 clavulanic acid (From AdvReac nauseated Verified 12/14/21 08:11 Augmentin) Current Medications Generic Name Dose Route Start Last Admin Trade Name Freq PRN Reason Stop Dose Admin Heparin Sodium (Porcine) 5,000 unit 12/15/24 14:45 12/15/24 15:16 Heparin 5,000 Unit/Ml Inj 1 Ml SUBCUT 5,000 unit Q12H [place] Administration Propofol 1,000 mg in 100 mls @ 0 mls/hr 12/14/24 20:00 12/15/24 13:12 Diprivan IV 0 mcg/kg/min .Q0M IS[place] 0 mls/hr Protocol Titration Per Protocol Fentanyl 1,000 mcg in 100 mls @ 0 mls/hr 12/14/24 20:00 12/15/24 12:42 Sublimaze IV 50 mcg/hr .Q0M [place] 5 mls/hr Protocol Administration Per Protocol Norepinephrine Bitartrate 4 mg in 250 mls @ 0 mls/hr 12/14/24 20:30 12/15/24 13:05 Levophed IV 8 mcg/min .Q0M [place] 30 mls/hr Protocol Titration Per Protocol Piperacillin Sod/Tazobactam 50 mls @ 12.5 mls/hr 12/15/24 09:00 12/15/24 09:34 Sod 3.375 gm/ Sodium Chloride IV 12.5 mls/hr Q12H [place] Administration Pantoprazole Sodium 40 mg 12/15/24 16:46 12/15/24 16:53 Pantoprazole 40 Mg Sdv IVP 40 mg DAILY [place] Administration PFSH Acute 2 PFSH: Medical History (Updated 12/15/24 @ 17:36 by Pj Smallwood MD) Cognitive decline 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 Keane. GERD (gastroesophageal reflux disease) History of pulmonary embolism Hyperlipidemia H/O methicillin resistant Staphylococcus aureus Hypothyroidism, unspecified MARGARITA (obstructive sleep apnea) Essential (primary) hypertension Surgical History Status post total hip replacement, right Status post right foot surgery History of arthroscopy of left knee S/P total knee arthroplasty S/P cataract extraction History of repair of hiatal hernia S/P cholecystectomy S/P percutaneous transluminal angioplasty ([employer]) with stent placement S/P sclerotherapy of varicose veins S/P hysterectomy Family History Mother CAD (coronary artery disease) unknown age of onset Diabetes Hypertension Myocardial infarct Sister Anesthesia complication Denies family history of Clotting disorder Dementia Chronic kidney disease (CKD) Suicide Bleeding disorder Lung disease Cancer Stroke Social History Smoking and tobacco/nicotine status: never used tobacco/nicotine Alcohol intake: never Substance/Drug Use: never Household members: spouse Marital status: Current occupational status: retired Vitals/I&O/Wt Last Vital Signs Temp 97.2 F L 12/14/24 19:33 Pulse 55 L 12/15/24 01:35 Resp 14 12/15/24 16:14 BP 91/63 12/15/24 01:35 Pulse Ox 100 12/15/24 16:14 O2 Del Method Mechanical Ventilation 12/15/24 03:31 FiO2 30 12/15/24 16:14 12/15/24 12/15/24 12/15/24 06:59 14:59 22:59 Intake Total 249.458 / 570.965 313.861 / 313.861 Output Total 0 / 0 50 / 50 Balance 249.458 / 570.965 263.861 / 263.861 Weight last 48 hrs Weight 95 lb Weight 95 lb Weight 105 lb 11.2 oz Physical Exam 2 Narrative: Patient is intubated, only grimaces to pain. ? Abdomen is soft does not appear to be tender ? Lumbosacral region there is about the same by 10 cm pressure injury with an overlying eschar, unable to stage at this point although there is no evidence of fluctuance discharge or changes suggestive of abscess underlying the area of eschar Urinary Catheter Management: Santiago Latex: Cath Placed During This Visit: yes Urinary Catheter Date of Insertion: 12/14/24 Urinary Catheter Time of Insertion: 23:00 Data 12/14/24 19:49 12/14/24 19:49 Micro: Microbiology 12/14/24 19:49 Blood Culture - Preliminary Blood Strep pyogenes (grp a) 12/14/24 22:09 Gram Stain - Final Sputum - Endotracheal Tube Aspirate 12/14/24 20:00 Blood Culture - Preliminary Blood SPECIMEN COLLECTED A&P Assessment and plan 1. ATN (acute tubular necrosis): 2. Dehydration: 3. UTI (urinary tract infection): 4. Septic shock: 5. Fecal impaction: 6. Decubitus ulcer of sacral area: Plan: Is a 74-year-old female who is admitted with septic shock of unknown source. I was consulted for evaluation of possible sacral decubitus ulcer as source of the patient symptoms. After my evaluation is highly likely that the sacral decubitus is the source of infection. Does not appear to have any cavitation or ulceration, I do agree the pressure ulcer is unstageable at this time and once patient is off pressors and in better clinical condition I can discuss the possibility of going to the OR for sharp debridement after which the patient will require long-term wound care as outpatient. But at this time patient is not a good candidate for any intervention and I do not see any additional benefit of proceeding with debridement unless there is improvement in patient clinical condition. In addition I reviewed the imaging that show evidence of a possible fecal impaction, rectal examination was done during my visit there was significant amount of retained stool in the rectum but it was soft we will start the patient on twice a day soapsuds enema for the next 72 hours to allow to completely evacuate the rectum. Any additional treatment and management per medical team is indicated. General surgery will remain available as needed and will continue to monitor patient condition to the site and possible need of debridement of the sacral decubitus ulcer in the near future. PDMP PDMP Reviewed: Not Reviewed Coding Level of Care Code Acute Code for [facility] Fwd Diagnoses ATN (acute tubular necrosis) N17.0 Dehydration E86.0 UTI (urinary tract infection) N39.0 Septic shock A41.9; R65.21 Fecal impaction K56.41 Decubitus ulcer of sacral area L89.159
--- NOTE | 2024-12-15 18:19 | PC.NURSE ---
Shift summary: Sent for chest CT, results listed in reports. Levophed: remains around 8-10 mcg. Unable to titrate off. Propofol turned off at 1300. will grimace to pain only. Urine output: 80mL
[2024-12-15 18:42] LABS: Platelet Count 181 10^3/cmm (157-399)
--- NOTE | 2024-12-15 18:47 | PC.NURSE ---
BG checked near end of shift. Resulted 37. Nurse checked again and it was 36. Nurse alerted Dr Verma. received orders for a d10 bolus and D10 maintenance drip
[2024-12-15] MEDS: heparin drip 25,000 UNIT/500 ML PREMIX 12 UNIT IV (20:33)
[2024-12-15] MEDS: heparin 5,000 unit/mL INJ 1 mL IVP (20:36)
--- NOTE | 2024-12-15 22:11 | PC.NURSE ---
Addendum entered by Emily Fernandez RN 12/15/24 22:43: Witnessed waste of Propofol with Percy [place] RN Original Note: wasted 45 mL of Propofol with Emily Fernandez RN
[2024-12-16] VITALS (91 sets, daily range): BP systolic 80–124; BP diastolic 43–94; PULSE 51–82; RESP 10–27; TEMP 36.2–36.7; O2SAT 99–100
[2024-12-16 01:32] LABS: Hematocrit 27.3 % (36-47); Hemoglobin 9.00 g/dL (11.27-16.99); Mean Corpuscular HGB Conc 33.0 g/dL (30-55); Mean Corpuscular Hemoglobin 32.4 pg (27-33); Mean Corpuscular Volume 98.2 fl (85-98); Nucleated Red Blood Cells % 0 %; Platelet Count 144 10^3/cmm (157-399); Red Blood Count 2.78 10^6/uL (3.85-5.65); White Blood Count 13.95 10^3/uL (3.29-11.43)
--- NOTE | 2024-12-16 01:40 | PM.ACPR ---
Acute Procedures Central Line Placement: Right Femoral: Time out performed: Yes Patient placed on monitor/pulse ox: Yes Central line prep: other (chloraprep) Local anesthesia used: lidocaine 2% Amount of anesthesia used (ml): 6 Ultrasound used for placement: No Central line lumen inserted: triple Post procedure: sutured in place, good blood return, all ports aspirated, flushed, capped and sterile dressing applied Post procedure x-ray: other Patient tolerated procedure: well and no complications Complications: none Additional comments: 20 cc blood drawn for lab Verbal consent was taken from Lesvia the granddaughter who was on the phone with patient's daughter. Risks and benefits including central line for pressors blood draws and medications versus risk of bleeding vascular injury infection were discussed with the patient international account representative. Bedside nurse Emily present at bedside for consent as well and assisted with procedure.
--- NOTE | 2024-12-16 01:45 | P.PN_ITS ---
Subjective 2 Subjective: 74-year-old female with [address] weight loss reported by her granddaughter Lesvia has been complaining of being cold and also had cold extremities at home. She was admitted after being found obtunded by her . I am told that the patient had decreasing level of responsiveness for a few days. She has had hypothermia to 92 degrees Fahrenheit, hypoglycemia requiring D10 infusion for blood sugar 35, hypotension requiring pressors and acute prerenal azotemia with BUN 90 with creatinine 2.71 baseline BUN 12 creatinine 0.9. Admit sodium 134 potassium 4.8 Vitals/I&O/Wt Last Vital Signs Temp 97.2 F L 12/14/24 19:33 Pulse 73 12/15/24 22:39 Resp 12 12/15/24 23:37 BP 91/63 12/15/24 01:35 Pulse Ox 100 12/15/24 23:37 O2 Del Method Mechanical Ventilation 12/15/24 03:31 FiO2 21 12/15/24 23:37 12/15/24 12/15/24 12/16/24 14:59 22:59 06:59 Intake Total 313.861 / 623.920 2203.75 / 1794.611 75.375 / 1869.986 Output Total 130 / 130 80 / 210 Balance 183.861 / 110.560 5393.75 / 1584.611 75.375 / 1659.986 Weight last 48 hrs Weight 43.091 kg Weight 43.091 kg Weight 47.945 kg Physical Exam 2 Narrative: General well-developed under nourished female obtunded on ventilator on no sedation. She is receiving D10 at 35 cc an hour, norepinephrine at 8 mcg/kg/min, Pupils are equally round and reactive to light Muscle tone is normal and she does have some spontaneous movement of her arms and legs though minimal CV regular rate and rhythm heart rate 80 Lungs clear to auscultation bilaterally Abdomen diminished bowel tones soft Calves 2+ edema Feet edematous but warm Urinary Catheter Management: Santiago Latex: Cath Placed During This Visit: yes Reason for Continuing Indwelling Catheter: Accurate Measurement of Urinary Output in Critically Ill Patients Urinary Catheter Date of Insertion: 12/14/24 Urinary Catheter Time of Insertion: 23:00 Data 12/15/24 03:25 12/14/24 19:49 Micro: Microbiology 12/14/24 20:00 Blood Culture - Preliminary Blood NEGATIVE TO DATE 12/14/24 19:49 Blood Culture - Preliminary Blood Strep pyogenes (grp a) 12/14/24 22:09 Gram Stain - Final Sputum - Endotracheal Tube Aspirate A&P Assessment and plan 1. Adrenal failure: Patient with hypothermia, hypotension, hypoglycemia, hyponatremia, elevated potassium, obtundation consistent with adrenal failure. Additionally her history of becoming slowly less active losing weight of 30 pound and becoming obtunded now with hypotension requiring pressors but no tachycardiac response and not requiring sedation are consistent with adrenal failure. TSH will also be checked I have drawn right femoral vein blood for labs this morning and stress dose steroids will be given. Bolus IV fluids and wean pressors I consented the patient's granddaughter and daughter verbally for right femoral triple-lumen catheter 2. Acute renal failure: This is due to hypotension and dehydration with elevated BUN to creatinine ratio. Aggressive fluid hydration as been instituted 3. Dehydration: As above 4. UTI (urinary tract infection): Urine with 6-10 white cells but 6-10 squamous cells ketones trace nitrates negative. I do not think this is a source of the patient's hypotension we will resend a new UA 5. Sacral decubitus ulcer: Continue with antibiotics for possible decubitus ulcer infection. Await blood cultures PDMP PDMP Reviewed: Not Reviewed Attestations 2 Medical Necessity Statement*: Patient remains in hospital with hypotension and adrenal failure. Steroids started and will require greater than 2 additional midnights in hospital Coding Level of Care Code Acute Code for [facility] Diagnoses Adrenal failure E27.49 Acute renal failure N17.9 Dehydration E86.0 UTI (urinary tract infection) N39.0 Sacral decubitus ulcer L89.159
[2024-12-16 01:53] LABS: Partial Thromboplastin Time 114.2 SECONDS (23.9-36.7)
[2024-12-16 01:54] LABS: Alanine Aminotransferase 23 U/L (0-33); Albumin Level 1.7 g/dL (3.5-5.2); Alkaline Phosphatase 61 U/L (35-105); Anion Gap 15.6 (5-19); Aspartate Amino Transferase 24 U/L (0-32); Blood Urea Nitrogen 79 mg/dL (8-23); Calcium 6.9 mg/dL (8.5-10.5); Carbon Dioxide 19 mmol/L (22-29); Chloride 106 mmol/L (98-107); Creatinine Clr Calc Pharmacy 15.3161; Globulin 2.5 g/dL (1.3-4.6); Glucose 198 mg/dL (65-115); Lactate (Lactic Acid level) 1.7 mmol/L (0.5-2.2); Osmolality Calculated 313 mOsm/kg (285-295); Potassium 3.6 mmol/L (3.5-5.1); Sodium 137 mmol/L (136-145); Total Protein 4.2 g/dL (6.6-8.7)
[2024-12-16 02:02] LABS: Slide Review Slide Review Perform
[2024-12-16] MEDS: hydrocortisone 100 mg/2 mL SDV IVP ×4 (02:24→20:23)
[2024-12-16] MEDS: potassium chloride oral liq 20 mEq/15 mL UDC 40 MEQ NG-TUBE (02:24)
[2024-12-16 02:28] LABS: Magnesium 1.7 mg/dL (1.7-2.3); Thyroid Stimulating Hormone 5.93 uIU/mL (0.27-4.20)
[2024-12-16] MEDS: calcium gluconate 0.9% NaCL 1 GM/50 ML PREMIX IV ×2 (02:44→03:22)
[2024-12-16] MEDS: magnesium sulfate premix 2 GM/50 ML PIGGYBACK IV (03:22)
[2024-12-16] MEDS: norepinephrine 4 MG/250 ML BAG 26.25 MG IV (04:35)
--- NOTE | 2024-12-16 05:39 | XRR_ITS ---
PROCEDURE INFORMATION: Exam: XR Chest Exam date and time: 12/16/2024 5:39 AM Age: 74 years old Clinical indication: Device placement; Other: Og; Additional info: Og placement TECHNIQUE: Imaging protocol: Radiologic exam of the chest. Views: 1 view. COMPARISON: CT angio chest PE protcl [id number] 12/15/2024 10:55 AM FINDINGS: Tubes, catheters and devices: Gastric tube terminates in the stomach. Endotracheal tube terminates above the drew. Lungs: Unremarkable. No consolidation. Pleural spaces: Unremarkable. No pleural effusion. No pneumothorax. Heart/Mediastinum: Unremarkable. No cardiomegaly. Bones/joints: Healed left rib fractures. XR/XR chest 1V portable [id number] IMPRESSION: Life support lines.
[2024-12-16 06:04] LABS: Glucose Urine UA Negative (Normal); Nitrate Urine Negative (Negative)
[2024-12-16 06:09] LABS: Add Urine Microscopic? YES
[2024-12-16] MEDS: FUROsemide 10 mg/mL SDV 4mL 40 MG IVP (06:13)
--- NOTE | 2024-12-16 06:22 | PC.NURSE ---
Dr. Pa on unit and discussed pt overall condition, ongoing need for vasopressor support, peripheral accesses, lab difficulty obtaining blood, etc. Plan of care discussed with family, consent given for central line and blood products by daughter who was at bedside. At approx 0600 pt had short episodes of desaturation into low 80's. Contacted respiratory and vent adjustments made. Contacted Dr. Pa and made aware. Came to bedside to assess. New order for IVP lasix received.
[2024-12-16] MEDS: potassium chloride oral liq 20 mEq/15 mL UDC 40 MEQ PEG-TUBE (06:33)
[2024-12-16 06:34] LABS: Specific Gravity, Urine 1.034 (1.005-1.030); UA Slide Review UA Slide Review Perf
[2024-12-16] MEDS: fentaNYL 1,000 MCG/100 ML BAG 5 MCG IV (07:18)
[2024-12-16] MEDS: dextrose 5%-lr + KCl 20 1,000 ML 125 MEQ IV ×2 (07:21→14:50)
[2024-12-16 08:46] LABS: Partial Thromboplastin Time 51.6 SECONDS (23.9-36.7)
--- NOTE | 2024-12-16 09:15 | PC.NURSE ---
Received verbal orders for EEG from Dr. Carlin, orders placed.
[2024-12-16] MEDS: heparin 5,000 unit/mL INJ 1 mL IVP ×2 (09:41→16:45)
[2024-12-16] MEDS: pantoprazole 40 mg SDV IVP (09:47)
[2024-12-16] MEDS: albumin 37.5 GM/150 ML VIAL IV (09:50)
[2024-12-16] MEDS: piperacillin-tazobactam 3.375 GM in sodium chloride 0.9% (plus) 50 ML IV ×2 (10:01→20:23)
--- NOTE | 2024-12-16 11:25 | PC.NUTR ---
Consult for tube feeding received. Pt currently on Nepro 1.8 @ 10mls/hr. Recommend increasing Jevity 1.8 to 20mls/hr with FWF 50mls Q6H per MD.
--- NOTE | 2024-12-16 12:51 | USR_ITS ---
PROCEDURE INFORMATION: Exam: US Duplex Left Lower Extremity Arteries Or Arterial Bypass Grafts Exam date and time: 12/16/2024 4:36 PM Age: 74 years old Clinical indication: Pain; Leg, lower; Left; Additional info: Clot rule out TECHNIQUE: Imaging protocol: Left Real-time duplex scan of the arteries or arterial bypass grafts of the left lower extremity with 2-D espinosa scale, color Doppler flow and spectral waveform analysis. Images documented and saved. COMPARISON: US CV venous duplex [facility] [id number] 12/16/2024 4:26 PM FINDINGS: Left external iliac artery: Left common iliac artery: 93 cm/s, triphasic Left common femoral artery: 103 cm/s, triphasic Left superficial femoral artery: Proximal; 71 cm/s, monophasic. Mid;128 cm/s, monophasic. Distal; 69 cm/s, monophasic. Left popliteal artery: 98 cm/s, monophasic Left calf/foot arteries: Left posterior tibial artery: 113 cm/s, monophasic. Left dorsalis pedis artery: 25 cm/s, monophasic Left deep veins: Left ankle-brachial index is 0.9. US/CV arterial duplex [facility] [id number] IMPRESSION: Mildly reduced ankle-brachial index with patent arterial flow to the calf arteries. Monophasic waveforms below the left common femoral artery suggests an unidentified proximal SFA narrowing, which does not reduce velocity flow.
--- NOTE | 2024-12-16 12:51 | USR_ITS ---
PROCEDURE INFORMATION: Exam: US Duplex Left Lower Extremity Veins, Limited Exam date and time: 12/16/2024 4:26 PM Age: 74 years old Clinical indication: Swelling (edema) of limb; Lower extremity, left; Additional info: Dvt R/O TECHNIQUE: Imaging protocol: Real-time duplex ultrasound of the left extremity with 2-D espinosa scale, color Doppler flow and spectral waveform analysis including responses to compression and other maneuvers (when performed) with image documentation. Limited exam focused on the left lower extremity veins. COMPARISON: CT abdomen pelvis wo con [id number] 12/14/2024 10:14 PM FINDINGS: Left deep veins: Unremarkable. The common femoral, femoral, proximal profunda femoral and popliteal veins are patent without thrombus. Normal Doppler waveforms. Normal compressibility and/or augmentation response. Superficial veins: Greater saphenous vein at the saphenofemoral junction is patent without thrombus. Soft tissues: Unremarkable. US/CV venous duplex [facility] [id number] IMPRESSION: 1. No evidence of deep vein thrombosis. 2. Technically difficult study due to patient immobility.
--- NOTE | 2024-12-16 12:51 | PC.NURSE ---
Patients home medications sent home with , You Belcher.
--- NOTE | 2024-12-16 14:33 | P.PN_ITS ---
Subjective 2 Subjective: Patient is currently mechanically intubated and on sedation Family around and had been thoroughly informed about the patient critical condition at length with benefits and risk of the intervention being done. The family is aware and agreed with the plan of care The patient generally looks critically ill, makes some nonpurposeful and noncoherent movements. Weak gag reflex is present. No eye coordination/tracking or any adequate appropriate response to painful stimuli. Patient grimaces only and some flexor/extensor response to pain. Vitals/I&O/Wt Last Vital Signs Temp 97.1 F L 12/16/24 13:38 Pulse 67 12/16/24 13:38 Resp 10 L 12/16/24 14:16 BP 80/46 12/16/24 13:38 Pulse Ox 100 12/16/24 14:16 O2 Del Method Mechanical Ventilation 12/16/24 13:38 FiO2 30 12/16/24 14:16 12/15/24 12/16/24 12/16/24 22:59 06:59 14:59 Intake Total 1480.75 / 6506.100 3906.513 / 4597.124 640.233 / 640.233 Output Total 80 / 210 350 / 560 850 / 850 Balance 1400.75 / 9376.146 0764.513 / 4037.124 -209.767 / -209.767 Weight last 48 hrs Weight 46.72 kg Weight 43.091 kg Weight 43.091 kg Weight 47.945 kg Physical Exam 2 Narrative: General: Patient critically ill on mechanical ventilation and sedation Cardio: S1-S2 normal no murmurs appreciated however due to conductive signs of the mechanical ventilation cannot appropriately describe heart sounds specifically Respiratory: Good bilateral air entry through mechanical ventilation with minimal settings, no wheezes no rhonchi appreciated GI: Abdomen soft, nontender, nondistended, normoactive bowel sounds present all 4 quadrants, Neuro: Unable to assess due to sedation Extremities: Mottling and discoloration of the fingertips secondary to norepinephrine, left lower leg relatively bigger than the right Skin: Sacral ulcer likely stage II-III without any discharge covered with intact skin with reddish-brown discoloration. Urinary Catheter Management: Santiago Latex: Cath Placed During This Visit: yes Reason for Continuing Indwelling Catheter: Accurate Measurement of Urinary Output in Critically Ill Patients Urinary Catheter Date of Insertion: 12/14/24 Urinary Catheter Time of Insertion: 23:00 Data 12/16/24 01:20 12/16/24 01:20 Micro: Microbiology 12/14/24 22:09 Gram Stain - Final Sputum - Endotracheal Tube Aspirate Sputum Culture - Preliminary 12/14/24 20:00 Blood Culture - Preliminary Blood NEGATIVE TO DATE 12/14/24 19:49 Blood Culture - Preliminary Blood Strep pyogenes (grp a) A&P Assessment and plan 1. Septic shock: Patient presented with shock, unresponsive to fluids, hypotension, less likely to be cardiogenic in nature CTPA showed pulmonary embolism but was not massive therefore obstructive shock also ruled out Patient having decubitus ulcer therefore could be infected and leading to septic shock Continue on Zosyn and vancomycin Repeat blood culture since the previous that showed 1 bottle showing strep pyogenes and could be contaminant MRSA, if negative then consider vancomycin to discontinue Repeat lactate showed improvement Adequate hydration Continue on vasopressors and maintain MAP above 60-65 2. Pulmonary embolism: Continue heparin infusion as per protocol Echocardiogram showed RV dilation 3. Sacral decubitus ulcer: Continue with antibiotics for possible decubitus ulcer infection. Await blood cultures 1 bottle of blood cultures showed strep pyogenes, follow sensitivity, could be contaminant however the patient is broadly covered Repeat blood culture Sputum culture from endotracheal sample preliminary negative 4. Acute renal failure: This is due to hypotension and dehydration with elevated BUN to creatinine ratio. Aggressive fluid hydration as been instituted Continue adequate NG feeds and fluids 5. Right leg swelling: Bilateral lower venous duplex 6. Unresponsive: EEG and follow the reports CT head at the time of admission was unremarkable for any acute intracranial pathology 7. Adrenal failure: There is a possibility of adrenal insufficiency related to septic shock/critical illness related corticosteroid insufficiency (CIR CI) since the patient is not having adequate response to vasopressors. Started on steroids overnight by the overnight physician and still requiring vasopressors with weaning off, continue stress dose steroids hydrocortisone 100 mg every 6 hourly Random cortisol was in normal range, TSH was mildly high, sent for T3 and T4 8. UTI (urinary tract infection): The patient initial UA was showing dark yellow and cloudy appearance positive leukoesterase but there were no WBCs or nitrates positive less likely of UTI however considering patient having septic shock, continue on Zosyn and vancomycin at the moment to broadly cover for any source of infection. 9. Fecal impaction: Surgery on board and enema provided 10. Hypothermia: Maintain normothermia PDMP PDMP Reviewed: Not Reviewed Attestations 2 Medical Necessity Statement*: Dea Belcher's hospital stay will require greater than 2 midnights for septic shock Time Spent in Patient Care: 16 - 35 minutes (>than 50% of time sp ent in counselling and/or direct pt care on unit) . Critical Care Time: The high probability of a clinically significant, sudden or life threatening deterioration of the patient's [] system(s) required my full and direct attention, intervention and personal management. The critical care time is as shown. This time is in addition to time spent performing any reported procedures but includes the following: [x] Data and vital sign review and interpretation [x] Patient assessment, examination and intervention [x] Documentation [x] Medication orders and management Critical Care Time (min): 35 Coding Level of Care Code Critical Care >/= 30 minutes Diagnoses Septic shock A41.9; R65.21 Pulmonary embolism I26.99 Sacral decubitus ulcer L89.159 Acute renal failure N17.9 Right leg swelling M79.89 Unresponsive R41.89 Adrenal failure E27.49 UTI (urinary tract infection) N39.0 Fecal impaction K56.41 Hypothermia T68.XXXA
[2024-12-16 16:14] LABS: Partial Thromboplastin Time 48.1 SECONDS (23.9-36.7)
[2024-12-16 16:29] LABS: MRSA PCR OZH (swab) NOT DETECTED (Not Detecte)
--- NOTE | 2024-12-16 16:31 | PC.NURSE ---
received verbal order from Dr. Verma to decrease dextrose potassium to 75 ml/hr also received verbal order to decrease levothyroxine to 50 mcg starting tomorrow 12/17
[2024-12-16] MEDS: norepinephrine 4 MG/250 ML BAG 15 MG IV (17:48)
--- NOTE | 2024-12-16 17:50 | PC.NURSE ---
Dr. Verma said we can increase feedings once patient has BM
[2024-12-16] MEDS: lactulose oral liq 20 gm/30 mL UDC 30 GM NG-TUBE (21:31)
[2024-12-16 22:11] LABS: Free T4 Free Thyroxine 0.65 ng/dL (0.82-1.77)
[2024-12-16] MEDS: vancomycin 500 MG in sodium chloride 0.9% (plus) 100 ML 200 MG IV (23:10)
[2024-12-16 23:32] LABS: Partial Thromboplastin Time 51.2 SECONDS (23.9-36.7)
[2024-12-17] VITALS (53 sets, daily range): BP systolic 81–150; BP diastolic 40–109; PULSE 65–99; RESP 10–25; TEMP 36.3–36.8; O2SAT 96–100
[2024-12-17] MEDS: dextrose 5%-lr + KCl 20 1,000 ML 75 MEQ IV ×2 (03:29→15:50)
[2024-12-17] MEDS: hydrocortisone 100 mg/2 mL SDV IVP ×4 (03:37→22:21)
[2024-12-17 04:52] LABS: Hematocrit 24.7 % (36-47); Hemoglobin 7.70 g/dL (11.27-16.99); Mean Corpuscular HGB Conc 31.2 g/dL (30-55); Mean Corpuscular Hemoglobin 31.4 pg (27-33); Mean Corpuscular Volume 100.8 fl (85-98); Platelet Count 140 10^3/cmm (157-399); Red Blood Count 2.45 10^6/uL (3.85-5.65); White Blood Count 14.05 10^3/uL (3.29-11.43)
[2024-12-17 05:28] LABS: Anion Gap 15.0 (5-19); Blood Urea Nitrogen 64 mg/dL (8-23); Calcium 8.1 mg/dL (8.5-10.5); Carbon Dioxide 21 mmol/L (22-29); Chloride 111 mmol/L (98-107); Creatinine Clr Calc Pharmacy 18.1876; Glucose 173 mg/dL (65-115); Osmolality Calculated 316 mOsm/kg (285-295); Potassium 5.0 mmol/L (3.5-5.1); Sodium 142 mmol/L (136-145)
[2024-12-17 05:47] LABS: Slide Review Slide Review Perform
[2024-12-17 05:48] LABS: Absolute Segmented Neutrophil 11.9 10/cmm (1.6-7.1); Atypical Lymphs 0.0 % (0-5); Band Neutrophils Absolute 1.4 10^3/cmm (0.0-1.2); Burr Cells 1+; Microcytosis Trace; Total Cells Counted 100 (0-100)
[2024-12-17 07:00] LABS: Partial Thromboplastin Time 60.3 SECONDS (23.9-36.7)
--- NOTE | 2024-12-17 08:26 | XR_ITS ---
WS: [id number] XR chest 1V portable [id number] REASON FOR EXAM: og placement FINDINGS: Suboptimal positioning with craniocaudal angulation. Endotracheal tube tip is just above the drew. Nasogastric tube is beyond the gastroesophageal junction. Tip not visualized. Mild tortuosity of the thoracic aorta with normal heart size. No acute pulmonary parenchymal or pleural abnormality. Considering differences in positioning and inspiration the examination is stable compared to the previous study. XR/XR chest 1V portable [id number] IMPRESSION: Probably stable chest as above.
[2024-12-17] MEDS: piperacillin-tazobactam 3.375 GM in sodium chloride 0.9% (plus) 50 ML IV ×2 (08:37→22:21)
[2024-12-17] MEDS: pantoprazole 40 mg SDV IVP (08:38)
--- NOTE | 2024-12-17 09:17 | PC.NURSE ---
Dr. Raegan valles discussing POC. Plans to extubate today if patient passes SBT, fentanyl turned down, precedex PRN orders received and placed, see MAR.
[2024-12-17 10:13] LABS: Hematocrit 23.7 % (36-47); Hemoglobin 7.50 g/dL (11.27-16.99); Mean Corpuscular HGB Conc 31.6 g/dL (30-55); Mean Corpuscular Hemoglobin 32.5 pg (27-33); Mean Corpuscular Volume 102.6 fl (85-98); Nucleated Red Blood Cells % 0 %; Platelet Count 130 10^3/cmm (157-399); Red Blood Count 2.31 10^6/uL (3.85-5.65); White Blood Count 14.53 10^3/uL (3.29-11.43)
[2024-12-17 10:35] LABS: Slide Review Slide Review Perform
[2024-12-17 11:28] LABS: ABG PCO2 36.0 mmHg (35-45); ABG PH Result 7.38 (7.35-7.45); Alveolar-Arterial Oxygen Gradi 6.4 mmHg (5-10); Arterial Blood Gas Hematocrit 26.0 % (37-47); Blood Gas Operator Identificat GD; Blood Gas Sample Site Brachial, right; Blood Gas Sample Type Arterial; Carboxyhemoglobin 0.8 %THgb (0.4-20.1); Glucose Level-ABG 148.0 mg/dL (70-115); HCO3 ABG 21.1 mmol/L (22-26); Ionized Calcium Level - ABG 1.2 mmol/L (1.1-1.4); Methemoglobin 1.2 % (0.4-1.5); Oxygen Saturation ABG 99.1; PEEP 5.0 cmH20; PO2 ABG 119.0 mmHg (80.0-100.0); PO2 FiO2 Ratio Arterial Blood 396; Potassium Level - ABG 4.7 mmol/L (3.5-5.0); Sodium Level - ABG 142.0 mmol/L (131-143)
[2024-12-17] MEDS: heparin drip 25,000 UNIT/500 ML PREMIX 12 UNIT IV (11:50)
[2024-12-17 13:46] LABS: Partial Thromboplastin Time 61.0 SECONDS (23.9-36.7)
--- NOTE | 2024-12-17 14:23 | PC.NURSE ---
patient extubated by RT today @ 1417 per doctors order
--- NOTE | 2024-12-17 14:26 | PC.NURSE ---
Addendum entered by Otto Ramos RN 12/17/24 14:34: This nurse witnessed ANGELIQUE Griffith waste fentanyl. Original Note: wasted 32.458 ml of fentanyl witnessed by kalin EMRINO
--- NOTE | 2024-12-17 14:28 | P.PN_ITS ---
Subjective 2 Subjective: Patient passes spontaneous breathing and awakening trials. S/p extubation, that was discussed with the family the son and agreed to proceed. Also informed in case of further deterioration the patient is since DNR and not to reintubate. Thorough discussion with the family has been performed and proceeded with extubation currently patient stable post extubation Vitals/I&O/Wt Last Vital Signs Temp 97.3 F L 12/17/24 07:00 Pulse 77 12/17/24 13:00 Resp 11 L 12/17/24 13:31 BP 119/68 12/17/24 13:00 Pulse Ox 100 12/17/24 13:31 O2 Del Method Mechanical Ventilation 12/17/24 13:00 FiO2 30 12/17/24 13:31 12/16/24 12/17/24 12/17/24 22:59 06:59 14:59 Intake Total 1389.084 / 2964.734 164.425 / 3129.159 215.850 / 215.850 Output Total 475 / 1325 1000 / 2325 725 / 725 Balance 914.084 / 1639.734 -835.575 / 804.159 -509.150 / -509.150 Weight last 48 hrs Weight 46.493 kg Weight 46.72 kg Physical Exam 2 Narrative: General: Patient critically ill however relatively better looking today, opening eyes and is alert, seems weak, passed spontaneous breathing trial and extubated on 2 L nasal cannula saturating well Cardio: Normal rate rhythm S1-S2 normal no murmurs appreciated no added sounds Respiratory: Good bilateral air entry, normal vesicular breathing no wheezes and no stridor GI: Abdomen soft, nontender, nondistended, normoactive bowel sounds present all 4 quadrants, Neuro: Unable to assess due to sedation Extremities: Mild dusky discoloration of the fingertips which is better today Skin: Sacral ulcer likely stage II-III without any discharge covered with intact skin with reddish-brown discoloration. Urinary Catheter Management: Santiago Latex: Cath Placed During This Visit: yes Reason for Continuing Indwelling Catheter: Accurate Measurement of Urinary Output in Critically Ill Patients Urinary Catheter Date of Insertion: 12/14/24 Urinary Catheter Time of Insertion: 23:00 Data 12/17/24 09:57 12/17/24 04:05 Micro: Microbiology 12/16/24 15:34 Blood Culture - Preliminary Blood SPECIMEN COLLECTED 12/16/24 15:32 Blood Culture - Preliminary Blood SPECIMEN COLLECTED 12/14/24 22:09 Gram Stain - Final Sputum - Endotracheal Tube Aspirate Sputum Culture - Preliminary A&P Assessment and plan 1. Septic shock: Patient presented with shock, unresponsive to fluids, hypotension, less likely to be cardiogenic in nature CTPA showed pulmonary embolism but was not massive therefore obstructive shock also ruled out Patient having decubitus ulcer therefore could be infected and leading to septic shock Continue on Zosyn since MRSA is negative Repeat blood culture to follow/prelim negative, since the previous that showed 1 bottle showing strep pyogenes and could be contaminant MRSA negative and discontinue vancomycin Adequate hydration to continue Maintain MAP above of 60-65 Currently stable and extubated today, however in case of further deterioration the family agreed and expressed wishes of her as well to be kept as DNR and not to proceed with any reintubation. 2. Pulmonary embolism: Patient risks factors included bedridden and sacral decubitus ulcer continue heparin infusion as per protocol and to bridge With warfarin 5 mg since the patient renal functions are compromised, If further improved then consider DOAC's however should be based on GFR INR monitoring: Optimum range 2-3 Echocardiogram showed RV dilation 3. Thrombocytopenia: Patient on heparin infusion, continue to monitor if the platelets drops more than 50% of her previous baseline then consider switching to nonheparin based anticoagulation such as Bivalurdine or argatroban? Continue to monitor 4. Macrocytic anemia: Sent for anemia workup Patient is currently on heparin infusion If the patient drops below 7, transfuse 1 unit of PRBC and stat CT angio abdomen pelvis with high risk consent to look for any source of bleeding 5. Sacral decubitus ulcer: Continue with antibiotics Zosyn for possible decubitus ulcer infection. 1 bottle of blood cultures showed strep pyogenes, follow sensitivity, repeat blood cultures prelim negative Sputum culture from endotracheal sample preliminary negative 6. Acute renal failure: This is due to hypotension and dehydration with elevated BUN to creatinine ratio. Aggressive fluid hydration as been instituted Continue adequate NG feeds and fluids Currently improving Adequate intake and output monitoring 7. Right leg swelling: Bilateral lower venous duplex 8. Unresponsive: EEG and follow the reports CT head at the time of admission was unremarkable for any acute intracranial pathology 9. Adrenal failure: There is a possibility of adrenal insufficiency related to septic shock/critical illness related corticosteroid insufficiency (CIR CI) since the patient is not having adequate response to vasopressors. Started on steroids overnight by the overnight physician and still requiring vasopressors with weaning off, continue stress dose steroids hydrocortisone 100 mg every 6 hourly Random cortisol was in normal range, TSH was mildly high with low T3 and T4 Continue levothyroxine 50 mcg dailySince the patient last dose was unknown and the family reported that she had history of hypothyroidism 10. UTI (urinary tract infection): The patient initial UA was showing dark yellow and cloudy appearance positive leukoesterase but there were no WBCs or nitrates positive less likely of UTI however considering patient having septic shock, continue Zosyn 11. Fecal impaction: Surgery on board and enema provided Monitor intake and output 12. Hypothermia: Maintain normothermia PDMP PDMP Reviewed: Not Reviewed Attestations 2 Medical Necessity Statement*: Dea Belcher's hospital stay will require greater than 2 midnights for septic shock Time Spent in Patient Care: Greater than 35 minutes (>than 50% of time spent in counselling and/or direct pt care on unit) . Critical Care Time: The high probability of a clinically significant, sudden or life threatening deterioration of the patient's [] system(s) required my full and direct attention, intervention and personal management. The critical care time is as shown. This time is in addition to time spent performing any reported procedures but includes the following: [x] Data and vital sign review and interpretation [x] Patient assessment, examination and intervention [x] Documentation [x] Medication orders and management Critical Care Time (min): 40 Other Attestations: Patient condition has been discussed at length with the patient/family, I have independently reviewed the chart labs imaging/diagnostics/EKG. the goals of care and code status with the patient/family/NOK/legal customer field representative, and documented accordingly. The patient/family has been informed about the current condition and further plan of care. Agreed with the plan of care and understood without any language barrier. Every effort was made to ensure accuracy of account management specialist. Any obvious errors or omissions should be clarified with the author of the document. Coding Level of Care Code Critical Care >/= 30 minutes Diagnoses Septic shock A41.9; R65.21 Pulmonary embolism I26.99 Thrombocytopenia D69.6 Macrocytic anemia D53.9 Sacral decubitus ulcer L89.159 Acute renal failure N17.9 Right leg swelling M79.89 Unresponsive R41.89 Adrenal failure E27.49 UTI (urinary tract infection) N39.0 Fecal impaction K56.41 Hypothermia T68.XXXA
[2024-12-17 15:22] LABS: Iron 17 ug/dL (37-145); Total Iron Binding Capacity 60 mcg/dl; Unsaturated Iron Binding 43 ug/dL (112-347)
[2024-12-17 15:35] LABS: Ferritin 1413 ng/mL (15-150)
[2024-12-17 16:22] LABS: Vitamin B12 > 2000 pg/mL (232-1245)
[2024-12-17] MEDS: vancomycin 500 MG in sodium chloride 0.9% (plus) 100 ML 200 MG IV (17:02)
--- NOTE | 2024-12-17 17:56 | XRR_ITS ---
PROCEDURE INFORMATION: Exam: XR Chest Exam date and time: 12/17/2024 6:26 PM Age: 74 years old Clinical indication: Device placement; Ng tube; Tube removed immediately following image pending evaluation by physician; Additional info: Ng placement TECHNIQUE: Imaging protocol: Radiologic exam of the chest. Views: 1 view. COMPARISON: CR XR chest 1V portable [id number] 12/17/2024 8:47 AM FINDINGS: Lungs: Unremarkable. No consolidation. Pleural spaces: Unremarkable. No pleural effusion. No pneumothorax. Heart/Mediastinum: Unremarkable. No cardiomegaly. Bones/joints: Healed posterior left rib fractures including left ribs 5 through 8. Other findings: No suggestion of acute intrathoracic abnormality. XR/XR chest 1V portable [id number] IMPRESSION: 1. No suggestion of acute intrathoracic abnormality. 2. Healed posterior left rib fractures including left ribs 5 through 8.
--- NOTE | 2024-12-17 17:58 | PC.NURSE ---
received verbal order to place ng tube with feeding rate at 10 ml/hr
--- NOTE | 2024-12-17 18:47 | PC.NURSE ---
ng placed x-ray ordered and showed incorrect placemnt ng tube removed machinist 2nd shift notified and will try to place doctor also notified
[2024-12-17 20:11] LABS: Partial Thromboplastin Time 48.7 SECONDS (23.9-36.7)
[2024-12-17] MEDS: heparin 5,000 unit/mL INJ 1 mL IVP (20:19)
--- NOTE | 2024-12-17 21:53 | XRR_ITS ---
PROCEDURE INFORMATION: Exam: XR Chest Exam date and time: 12/17/2024 9:58 PM Age: 74 years old Clinical indication: Device placement; Ng tube; Additional info: Ng tube placement TECHNIQUE: Imaging protocol: Radiologic exam of the chest. Views: 1 view. COMPARISON: CR XR chest 1V portable [id number] 12/17/2024 6:26 PM FINDINGS: Tubes, catheters and devices: The enteric tube follows the expected course of the esophagus and terminates below the diaphragm. The tip terminates likely in the gastric cardia below the left hemidiaphragm. The side port is below the GE junction. Lungs: Minimal interstitial prominence in the perihilar and left basilar regions. Pleural spaces: Unremarkable. No pleural effusion. No pneumothorax. Heart/Mediastinum: Unremarkable. No cardiomegaly. Vasculature: Atherosclerotic changes of the aorta are noted. Bones/joints: Chronic left rib fracture deformities are present. XR/XR chest 1V portable [id number] IMPRESSION: 1. Appropriately seated enteric tube. 2. Findings which could be eligibility services representative of mild vascular congestion or interstitial pneumonia. No pneumonic consolidation.
--- NOTE | 2024-12-17 23:40 | PC.NURSE ---
NG tube placement Folic acid and tube feed administered late due to NG tube placement and verification. Dr. Pa aware.
[2024-12-18] VITALS (94 sets, daily range): BP systolic 77–143; BP diastolic 45–114; PULSE 71–107; RESP 14; TEMP 36.2–37.6; O2SAT 95–100
--- NOTE | 2024-12-18 01:30 | PC.NURSE ---
LR bolus Patient's blood pressure MAP intermittently dropping into the 50s then returning to greater than or equal to 65. Dr. Pa notified; order received to administer 1 L bolus LR IV once.
[2024-12-18 02:29] LABS: Hematocrit 24.8 % (36-47); Hemoglobin 7.70 g/dL (11.27-16.99); Mean Corpuscular HGB Conc 31.0 g/dL (30-55); Mean Corpuscular Hemoglobin 32.1 pg (27-33); Mean Corpuscular Volume 103.3 fl (85-98); Nucleated Red Blood Cells % 0 %; Platelet Count 147 10^3/cmm (157-399); Red Blood Count 2.40 10^6/uL (3.85-5.65); White Blood Count 14.17 10^3/uL (3.29-11.43)
[2024-12-18 02:45] LABS: INR 1.00 (0.8-1.2); Prothrombin Time 14.00 SECONDS (12.1-14.9)
[2024-12-18 02:52] LABS: Alanine Aminotransferase 21 U/L (0-33); Albumin Level 2.0 g/dL (3.5-5.2); Alkaline Phosphatase 58 U/L (35-105); Anion Gap 15.7 (5-19); Aspartate Amino Transferase 20 U/L (0-32); Blood Urea Nitrogen 52 mg/dL (8-23); Calcium 7.9 mg/dL (8.5-10.5); Carbon Dioxide 21 mmol/L (22-29); Chloride 111 mmol/L (98-107); Creatinine Clr Calc Pharmacy 22.6896; Globulin 2.8 g/dL (1.3-4.6); Glucose 161 mg/dL (65-115); Osmolality Calculated 314 mOsm/kg (285-295); Partial Thromboplastin Time 83.8 SECONDS (23.9-36.7); Potassium 4.7 mmol/L (3.5-5.1); Sodium 143 mmol/L (136-145); Total Protein 4.8 g/dL (6.6-8.7)
[2024-12-18] MEDS: HYDROmorphone 0.5 MG/0.5 ML INJ 0.4 MG SUBCUT ×4 (06:13→17:29)
--- NOTE | 2024-12-18 08:39 | P.PN_ITS ---
Subjective 2 Subjective: Patient s/p extubation Doing well, heparin switched to apixaban Hemoglobin stable, no overnight acute events can be transferred to [facility] Vitals/I&O/Wt Last Vital Signs Temp 97.7 F 12/18/24 04:30 Pulse 72 12/18/24 07:30 Resp 14 12/18/24 00:05 BP 123/77 12/18/24 07:30 Pulse Ox 99 12/18/24 07:30 O2 Del Method Nasal Cannula 12/18/24 00:00 O2 Flow Rate 2 12/18/24 00:00 FiO2 30 12/17/24 13:31 12/17/24 12/18/24 12/18/24 22:59 06:59 14:59 Intake Total 1264.35 / 1480.200 182.3 / 4650.915 4647 / 1316 Output Total 225 / 950 425 / 425 Balance 1039.35 / 530.200 182.3 / 712.500 891 / 891 Weight last 48 hrs Weight 49.487 kg Weight 46.493 kg Physical Exam 2 Narrative: General: Patient critically ill however relatively better looking today, spontaneous eye opening is there and is alert, seems weak and on 2L/min NC Cardio: Normal rate rhythm S1-S2 normal no murmurs appreciated no added sounds Respiratory: Good bilateral air entry, normal vesicular breathing no wheezes and no stridor GI: Abdomen soft, nontender, nondistended, normoactive bowel sounds present all 4 quadrants, Neuro: Unable to assess due to sedation Extremities: finger discoloration due to prior NE use, and mild edema, getting better Skin: Sacral ulcer likely stage II-III without any discharge covered with intact skin and no discharge Urinary Catheter Management: Santiago Latex: Cath Placed During This Visit: yes Reason for Continuing Indwelling Catheter: Accurate Measurement of Urinary Output in Critically Ill Patients Urinary Catheter Date of Insertion: 12/14/24 Urinary Catheter Time of Insertion: 23:00 Data 12/18/24 02:25 12/18/24 02:25 Micro: Microbiology 12/14/24 19:49 Blood Culture - Preliminary Blood Strep pyogenes (grp a) 12/16/24 15:32 Blood Culture - Preliminary Blood NEGATIVE TO DATE 12/16/24 15:34 Blood Culture - Preliminary Blood NEGATIVE TO DATE 12/14/24 22:09 Gram Stain - Final Sputum - Endotracheal Tube Aspirate Sputum Culture - Final A&P Assessment and plan 1. Septic shock: Patient presented with shock currently resolved, she was unresponsive to fluids, hypotensive, less likely to be in cardiogenic nature based on echo results CTPA showed pulmonary embolism but was not massive therefore obstructive shock also ruled out and started on anticoagulation Patient having decubitus ulcer therefore could be infected and leading to septic shock Continue on Zosyn since MRSA is negative Repeat blood cultures prelim negative, 1 bottle showed strep pyogenes possible contamination Maintain MAP above of 60-65 in case of further deterioration the family agreed and expressed wishes of her as well to be kept as DNR and not to proceed with any reintubation. 2. Pulmonary embolism: Patient risks factors included bedridden and sacral decubitus ulcer Start apixaban 5 mg daily and discontinue heparin Echocardiogram showed RV dilation 3. Thrombocytopenia: Currently stable, most likely was related to septic shock Continue to monitor 4. Macrocytic anemia: Anemia workup revealed folate deficiency Folic acid replacement provided Continue to monitor CBC If the patient drops below 7, transfuse 1 unit of PRBC and stat CT angio abdomen pelvis with high risk consent to look for any source of bleeding 5. Sacral decubitus ulcer: Continue with antibiotics Zosyn for possible decubitus ulcer infection. blood cultures negative so far, is afebrile, possible descalation after final report Surgery on board and no intervention at the moment since it is not grossly infected and can be observed with wound care 6. Acute renal failure: On initial presentation likely related to hypotension and dehydration with elevated BUN to creatinine ratio. After fluid resuscitation and management, having adequate urinary output Currently improving Adequate intake and output monitoring 7. Right leg swelling: Bilateral lower venous duplex did not reveal any DVT Right leg swelling improving subsequently 8. Unresponsive: CT head at the time of admission was unremarkable for any acute intracranial pathology EEG and follow the reports 9. Adrenal failure: And initial presentation, there was possibility of adrenal insufficiency related to septic shock/critical illness related corticosteroid insufficiency (CIR CI) since the patient is not having adequate response to vasopressors. Therefore she was started on steroids and currently off vasopressors, weaning off, hydrocortisone twice daily Random cortisol was in normal range, TSH was mildly high with low T3 and T4 Continue levothyroxine 50 mcg daily Since the patient last dose was unknown and the family reported that she had history of hypothyroidism 10. UTI (urinary tract infection): The patient initial UA was showing dark yellow and cloudy appearance positive leukoesterase but there were no WBCs or nitrates positive less likely of UTI however considering patient having septic shock, continue Zosyn and later to descalate based on blood cultures 11. Fecal impaction: Surgery on board and enema provided Monitor intake and output 12. Hypothermia: Maintain normothermia PDMP PDMP Reviewed: Not Reviewed Attestations 2 Medical Necessity Statement*: Dea Belcher's hospital stay will require greater than 2 midnights for septic shock currently resolving however having multiple comorbidities including sacral decubitus ulcer, acute renal failure Time Spent in Patient Care: 16 - 35 minutes (>than 50% of time sp ent in counselling and/or direct pt care on unit) . Critical Care Time: The high probability of a clinically significant, sudden or life threatening deterioration, as referenced in this documentation, required my full and direct attention, intervention and personal management. The critical care time shown is in addition to time spent performing any reported separately billable procedures and includes the following: [x] Data and vital sign review and interpretation [x ] Patient assessment, examination and intervention [x] Medication orders and management [x] Patient/Family updates as able [x] Care Coordination and Documentation. Critical Care Time (min): 35 Other Attestations: Patient condition has been discussed at length with the patient/family, I have independently reviewed the chart labs imaging/diagnostics/EKG. the goals of care and code status with the patient/family/NOK/legal technical support representative, and documented accordingly. The patient/family has been informed about the current condition and further plan of care. Agreed with the plan of care and understood without any language barrier. Every effort was made to ensure accuracy of electronic calibration technician. Any obvious errors or omissions should be clarified with the author of the document. Coding Level of Care Code Critical Care >/= 30 minutes Diagnoses Septic shock A41.9; R65.21 Pulmonary embolism I26.99 Thrombocytopenia D69.6 Macrocytic anemia D53.9 Sacral decubitus ulcer L89.159 Acute renal failure N17.9 Right leg swelling M79.89 Unresponsive R41.89 Adrenal failure E27.49 UTI (urinary tract infection) N39.0 Fecal impaction K56.41 Hypothermia T68.XXXA
[2024-12-18] MEDS: piperacillin-tazobactam 3.375 GM in sodium chloride 0.9% (plus) 50 ML IV ×2 (09:21→20:29)
[2024-12-18] MEDS: hydrocortisone 100 mg/2 mL SDV IVP ×2 (09:21→17:22)
[2024-12-18] MEDS: pantoprazole 40 mg SDV IVP (09:21)
--- NOTE | 2024-12-18 09:25 | PC.NUTR ---
Consult for tube feeding received. Recommend goal rate of Nepro 1.8 to 20mls/hr with FWF 50mls Q6H per MD.
[2024-12-18] MEDS: iron sucrose 200 MG in sodium chloride 0.9% (100 ml) 100 ML 220 MG IV (09:47)
[2024-12-18 09:57] LABS: Partial Thromboplastin Time 68.3 SECONDS (23.9-36.7)
--- NOTE | 2024-12-18 18:08 | PC.SLP ---
The patient was not alert enough to participate with MOLDER VACUUM to assess swallowing when MOLDER VACUUM available to assess. MOLDER VACUUM will attempt to work with the patient tomorrow and assess for possible advancement to an oral diet.
[2024-12-18] MEDS: HYDROmorphone 0.5 MG/0.5 ML INJ 0.4 MG IVP (22:40)
--- NOTE | 2024-12-18 22:45 | PC.NURSE ---
Right arm edema Patient's right arm more edematous than the left. Dr. Pa notified; orders received to apply netting to arm and elevate above the heart. Further orders received to change PRN 0.4 mg dilaudid order from subq to IVP and increase jevity tube feed to 35 ml/hr.
[2024-12-19] VITALS (46 sets, daily range): BP systolic 91–150; BP diastolic 49–82; PULSE 75–131; RESP 0–19; TEMP 36.5–37.1; O2SAT 91–100
[2024-12-19] MEDS: HYDROmorphone 0.5 MG/0.5 ML INJ 0.4 MG IVP ×4 (02:45→19:12)
[2024-12-19 03:26] LABS: Hematocrit 24.8 % (36-47); Hemoglobin 7.90 g/dL (11.27-16.99); Mean Corpuscular HGB Conc 31.9 g/dL (30-55); Mean Corpuscular Hemoglobin 32.6 pg (27-33); Mean Corpuscular Volume 102.5 fl (85-98); Nucleated Red Blood Cells % 0 %; Platelet Count 194 10^3/cmm (157-399); Red Blood Count 2.42 10^6/uL (3.85-5.65); White Blood Count 11.17 10^3/uL (3.29-11.43)
[2024-12-19 03:39] LABS: INR 1.11 (0.8-1.2); Prothrombin Time 15.10 SECONDS (12.1-14.9)
[2024-12-19 03:50] LABS: Alanine Aminotransferase 24 U/L (0-33); Albumin Level 2.2 g/dL (3.5-5.2); Alkaline Phosphatase 75 U/L (35-105); Anion Gap 13.5 (5-19); Aspartate Amino Transferase 24 U/L (0-32); Blood Urea Nitrogen 42 mg/dL (8-23); Calcium 7.7 mg/dL (8.5-10.5); Carbon Dioxide 23 mmol/L (22-29); Chloride 112 mmol/L (98-107); Creatinine Clr Calc Pharmacy 24.8338; Globulin 2.9 g/dL (1.3-4.6); Glucose 160 mg/dL (65-115); Osmolality Calculated 312 mOsm/kg (285-295); Potassium 4.5 mmol/L (3.5-5.1); Sodium 144 mmol/L (136-145); Total Protein 5.1 g/dL (6.6-8.7)
[2024-12-19] MEDS: pantoprazole 40 mg SDV IVP (09:08)
[2024-12-19] MEDS: hydrocortisone 100 mg/2 mL SDV IVP ×2 (09:08→17:15)
[2024-12-19] MEDS: piperacillin-tazobactam 3.375 GM in sodium chloride 0.9% (plus) 50 ML IV ×2 (09:10→21:09)
--- NOTE | 2024-12-19 09:21 | P.PN_ITS ---
Subjective 2 Subjective: 74-year-old female who is admitted to [facility] with septic shock and appeared to be severely deconditioned and in poor overall health. I was consulted for sacral decubitus ulcer and also for fecal impaction. She has been improving and is tolerating tube feeds now was extubated response to basic commands has had several bowel movements. Vitals/I&O/Wt Last Vital Signs Temp 97.7 F 12/19/24 07:30 Pulse 90 12/19/24 07:30 Resp 16 12/19/24 04:30 BP 125/72 12/19/24 07:30 Pulse Ox 95 12/19/24 07:52 O2 Del Method Nasal Cannula 12/19/24 07:52 O2 Flow Rate 1.5 12/19/24 07:52 FiO2 30 12/17/24 13:31 12/18/24 12/19/24 12/19/24 22:59 06:59 14:59 Intake Total 664 / 2270 439 / 2709 Output Total 300 / 725 325 / 1050 Balance 364 / 1545 114 / 1659 Weight last 48 hrs Weight 111 lb 4.8 oz Weight 109 lb 1.6 oz Physical Exam 2 Const: OTHER: Patient appears severely malnourished and deconditioned GI: OTHER: Benign abdominal exam abdomen soft and nontender Back/Pelvis: OTHER: There is a sacral decubitus ulcer currently unstageable probably stage II or III better this cover with intact skin that has not yet transitioning to becoming full eschar has an area about 5 x 5 cm Urinary Catheter Management: Santiago Latex: Cath Placed During This Visit: yes Reason for Continuing Indwelling Catheter: Accurate Measurement of Urinary Output in Critically Ill Patients Urinary Catheter Date of Insertion: 12/14/24 Urinary Catheter Time of Insertion: 23:00 Data 12/19/24 03:14 12/19/24 03:14 A&P Assessment and plan 1. Pulmonary embolism: 2. Thrombocytopenia: 3. Adrenal failure: 4. Macrocytic anemia: 5. Sacral decubitus ulcer: 6. Decubitus ulcer of sacral area: Plan: Patient appears to be consistently improving. Speech therapy has been testing swallowing at the bedside. She is tolerating tube feeds. Mental status appears to be improving on a daily basis. Regarding her sacral decubitus ulcer I have a discussion with the family member at the bedside, at this time the ulcer is covered by intact the skin does not appear to have underlying fluctuance or evidence of active infection. Due to patient poor nutritional state and clinical picture I do not think is appropriate at this time to proceed with aggressive debridement as it will create a wound that is unlikely to be able to be healed by the patient at this time. I think we should continue with protection of the skin and allow it to fully demarcate into full eschar and at that time we can proceed with debridement either in the inpatient setting or in the wound care clinic as outpatient. Family member shows understanding agrees with the plan. Will continue to follow the patient while she is in-house and I have discussed with the family member the possible need for debridement in the future which they agreed to. PDMP PDMP Reviewed: Not Reviewed Attestations 2 Medical Necessity Statement*: Per medical team Coding Level of Care Code Acute Code for Chg Fwd Diagnoses Pulmonary embolism I26.99 Thrombocytopenia D69.6 Adrenal failure E27.49 Macrocytic anemia D53.9 Sacral decubitus ulcer L89.159
[2024-12-19] MEDS: iron sucrose 200 MG in sodium chloride 0.9% (100 ml) 100 ML 220 MG IV (10:16)
--- NOTE | 2024-12-19 12:06 | PC.SOCIAL ---
IMM Updated Updated pt's daughter on IMM. No questions voiced. Provided pt a copy. Initialed, dated, & timed copy in chart.
--- NOTE | 2024-12-19 12:41 | PM.PN ---
Subjective Subjective: Patient s/p extubation , doing well no acute concerns and the patient is at baseline mild right arm swelling overnight but the patient is already on anticoagulation and to address adequate positioning for transfer to [facility] registered nurse hh case manager onboard for her disposition to possible detention or other safe options family is aware of the clinical condition and current management plan Vitals/I&O/Wt Last Vital Signs Temp 97.7 F 12/19/24 07:30 Pulse 85 12/19/24 12:30 Resp 11 L 12/19/24 12:30 BP 150/82 12/19/24 12:30 Pulse Ox 94 12/19/24 12:30 O2 Del Method Room Air 12/19/24 12:30 O2 Flow Rate 1.5 12/19/24 07:52 FiO2 30 12/17/24 13:31 12/18/24 12/19/24 12/19/24 22:59 06:59 14:59 Intake Total 664 / 2270 439 / 2709 Output Total 300 / 725 325 / 1050 Balance 364 / 1545 114 / 1659 Weight last 48 hrs Weight 50.485 kg Weight 49.487 kg Physical Exam Narrative: General: Patient critically ill however relatively better looking today, spontaneous eye opening is there and is alert, seems weak, off O2 Cardio: Normal rate rhythm S1-S2 normal no murmurs appreciated no added sounds Respiratory: Good bilateral air entry, normal vesicular breathing no wheezes and no stridor GI: Abdomen soft, nontender, nondistended, normoactive bowel sounds present all 4 quadrants, Neuro: Unable to assess due to sedation Extremities: finger discoloration due to prior NE use, and mild edema, getting better Skin: Sacral ulcer likely stage II-III without any discharge covered with intact skin and no discharge Urinary Catheter Management: Santiago Latex: Cath Placed During This Visit: yes Reason for Continuing Indwelling Catheter: Accurate Measurement of Urinary Output in Critically Ill Patients Urinary Catheter Date of Insertion: 12/14/24 Urinary Catheter Time of Insertion: 23:00 Data 12/19/24 03:14 12/19/24 03:14 A&P Assessment and plan 1. Septic shock: Patient presented with shock currently resolved, she was unresponsive to fluids, hypotensive less likely to be in cardiogenic nature based on echo results CTPA showed pulmonary embolism but was not massive therefore obstructive shock also ruled out and started on anticoagulation and responded well without any complications Patient having decubitus ulcer therefore could be infected and leading to septic shock, surgery onboard and recommended for no intervention since she carries more risks than benefits based on her nutritional status, bed ridden state. Continue on Zosyn since MRSA is negative, to complete 14 days of antibiotics Repeat blood cultures prelim negative, 1 bottle showed strep pyogenes possible contamination Maintain MAP above of 60-65 in case of further deterioration the family agreed and expressed wishes of her as well to be kept as DNR and not to proceed with any reintubation. 2. Pulmonary embolism: Patient risks factors included bedridden and sacral decubitus ulcer On apixaban 5 mg daily Echocardiogram showed mild diminised EF: 45-50%, normal LV size and mild RV dilation 3. Thrombocytopenia: resolved Currently stable, most likely was related to septic shock Continue to monitor 4. Macrocytic anemia: Anemia workup revealed folate deficiency Folic acid replacement provided Continue to monitor CBC If the patient drops below 7, transfuse 1 unit of PRBC and stat CT angio abdomen pelvis with high risk consent to look for any source of bleeding 5. Sacral decubitus ulcer: Continue with antibiotics Zosyn for possible decubitus ulcer infection. blood cultures negative so far, is afebrile, possible descalation after final report Surgery on board and no intervention at the moment since it is not grossly infected and can be observed with wound care, and no intervention since it carries more risks than benefits based on the patient clinical physiological condition and nutritional status 6. Acute renal failure: On initial presentation likely related to hypotension and dehydration with elevated BUN to creatinine ratio. After fluid resuscitation and management, having adequate urinary output Currently improving Adequate intake and output monitoring 7. Right leg swelling: Bilateral lower venous duplex did not reveal any DVT Right leg swelling improving subsequently 8. Unresponsive: CT head at the time of admission was unremarkable for any acute intracranial pathology EEG and follow the reports 9. Adrenal failure: And initial presentation, there was possibility of adrenal insufficiency related to septic shock/critical illness related corticosteroid insufficiency (CIR CI) since the patient is not having adequate response to vasopressors. Therefore she was started on steroids and currently off vasopressors, weaning off, hydrocortisone twice daily Random cortisol was in normal range, TSH was mildly high with low T3 and T4 Continue levothyroxine 50 mcg daily Since the patient last dose was unknown and the family reported that she had history of hypothyroidism 10. UTI (urinary tract infection): The patient initial UA was showing dark yellow and cloudy appearance positive leukoesterase but there were no WBCs or nitrates positive less likely of UTI however considering patient having septic shock, continue Zosyn for total 14 days and later to descalate based on blood cultures sensitivity prelim Blood cultures so far negative 11. Fecal impaction: Surgery on board and enema provided Monitor intake and output 12. Hypothermia: resolved Maintain normothermia 13. Malnourished: dietitian consulted and to follow the recommendations PDMP PDMP Reviewed: Not Reviewed Attestations Medical Necessity Statement*: Dea Humphriesman's hospital stay will require greater than 2 midnights for sepsis. initially septic shock and resolved however having multiple comorbidities including sacral decubitus ulcer, acute renal failure/resolving Need adequate disposition, registered nurse hh case manager on board Time Spent in Patient Care: 16 - 35 minutes (>than 50% of time spent in counselling and/or direct pt care on unit). Critical Care Time: The high probabi lity of a clinical ly significant, clark dden or life threa tening deteriorati on, as referenced in this documentat ion, required my f ull and direct att ention, interventi on and personal sarita sims. The crit ical care time jarod wn is in addition to time spent perf orming any reporte d separately billa ble procedures and includes the foll owing: [x] Data an d vital sign revie w and interpretati on [x] Patient ass essment, examinati on and interventio n [x] Medication o rders and manageme nt [x] Patient/Fam kathy updates as abl e [x] Care Coordin ation and Document ation. Critical Care Time (min): 35 Other Attestations: Patient condition has been discussed at length with the patient/family, I have independently reviewed the chart labs imaging/diagnostics/EKG. the goals of care and code status with the patient/family/NOK/legal medical office representative, and documented accordingly. The patient/family has been informed about the current condition and further plan of care. Agreed with the plan of care and understood without any language barrier. Every effort was made to ensure accuracy of vp packaging. Any obvious errors or omissions should be clarified with the author of the document. Coding Level of Care Code Critical Care >/= 30 minutes Diagnoses Septic shock A41.9; R65.21 Pulmonary embolism I26.99 Thrombocytopenia D69.6 Macrocytic anemia D53.9 Sacral decubitus ulcer L89.159 Acute renal failure N17.9 Right leg swelling M79.89 Unresponsive R41.89 Adrenal failure E27.49 UTI (urinary tract infection) N39.0 Fecal impaction K56.41 Hypothermia T68.XXXA Malnourished E46
--- NOTE | 2024-12-19 14:21 | PC.NURSE ---
Patient's family wanted this nurse to contact Dr. Verma to see if the patient could have an x ray for their right shoulder. They were concerned that the patient might have had an injury to their right shoulder from a previous fall.
--- NOTE | 2024-12-19 14:32 | XR_ITS ---
WS: [id number] XR shoulder RT 1V [id number] REASON FOR EXAM: FALL FINDINGS: Mild osteoarthritis of the right acromioclavicular joint with mild downward slant orientation of the acromial process. Probable mild osteoarthritis at the right glenohumeral joint. No acute fracture or dislocation. XR/XR shoulder RT 1V [id number] IMPRESSION: No acute abnormality.
--- NOTE | 2024-12-19 15:06 | PC.NURSE ---
Report was given to ANGELIQUE Dunn in [facility]. Patient was transferred successfully.
[2024-12-20] VITALS (10 sets, daily range): BP systolic 126–172; BP diastolic 73–98; PULSE 86–118; RESP 14–22; TEMP 36.4–37; O2SAT 93–96
[2024-12-20] MEDS: HYDROmorphone 0.5 MG/0.5 ML INJ 0.4 MG IVP ×3 (00:18→21:41)
[2024-12-20 04:30] LABS: Hematocrit 25.7 % (36-47); Hemoglobin 8.20 g/dL (11.27-16.99); Mean Corpuscular HGB Conc 31.9 g/dL (30-55); Mean Corpuscular Hemoglobin 32.5 pg (27-33); Mean Corpuscular Volume 102.0 fl (85-98); Nucleated Red Blood Cells % 0 %; Platelet Count 208 10^3/cmm (157-399); Red Blood Count 2.52 10^6/uL (3.85-5.65); White Blood Count 10.29 10^3/uL (3.29-11.43)
[2024-12-20 04:48] LABS: INR 1.11 (0.8-1.2); Prothrombin Time 15.10 SECONDS (12.1-14.9)
[2024-12-20 04:57] LABS: Alanine Aminotransferase 27 U/L (0-33); Albumin Level 2.1 g/dL (3.5-5.2); Alkaline Phosphatase 78 U/L (35-105); Anion Gap 13.4 (5-19); Aspartate Amino Transferase 30 U/L (0-32); Blood Urea Nitrogen 44 mg/dL (8-23); Calcium 7.5 mg/dL (8.5-10.5); Carbon Dioxide 23 mmol/L (22-29); Chloride 111 mmol/L (98-107); Globulin 2.9 g/dL (1.3-4.6); Glucose 160 mg/dL (65-115); Osmolality Calculated 311 mOsm/kg (285-295); Potassium 4.4 mmol/L (3.5-5.1); Sodium 143 mmol/L (136-145); Total Protein 5.0 g/dL (6.6-8.7)
[2024-12-20 05:19] LABS: Creatinine Clr Calc Pharmacy 31.3054
--- NOTE | 2024-12-20 09:58 | PC.NURSE ---
Addendum entered by Ashok Demarco RN 12/20/24 18:36: About an hour after initiating the below interventions, plus glycopyrrolate, the patient's symptoms resolved. Nurse no longer had concerns for airway protection. Original Note: airway: Over the last hour, patient has developed a very wet cough, a significant amount of upper airway secretions. TUbe feed residuals are 0 and NG tube has been assessed to be properly placed. Adán has a weak cough, unable to clear secretions on her own. NUrse has encouraged the patient to try coughing and swallowing the secretions so they are no longer in the airway, but patient doesn't appear to be able to do so either. Nurse attempted to perform oral suction with the yaunker, but the patient is uncooperative and tries sucking on it as though it is a straw and occludes the suction. NUrse has relayed concerns about inability to protect airway from secretions to the physician. Dr krause to bedside, he has ordered chest physiotherapy, a mucolytic, and reduce tube feed to 10mlhr.
[2024-12-20] MEDS: guaiFENesin 100 mg/5 mL UDC 10 mL 200 MG PO (10:04)
[2024-12-20] MEDS: piperacillin-tazobactam 3.375 GM in sodium chloride 0.9% (plus) 50 ML IV (10:04)
[2024-12-20] MEDS: pantoprazole 40 mg SDV IVP (10:04)
[2024-12-20] MEDS: hydrocortisone 100 mg/2 mL SDV IVP (10:06)
[2024-12-20] MEDS: iron sucrose 200 MG in sodium chloride 0.9% (100 ml) 100 ML 220 MG IV (10:06)
[2024-12-20] MEDS: glycopyrrolate 0.2 mg/mL SDV 2 mL 0.1 MG IM (10:47)
--- NOTE | 2024-12-20 11:36 | PM.PN ---
Subjective Subjective: Patient s/p extubation , doing well Patient having mild secretions gurgling likely secondary to inability to cough up since the patient is having a weak cough. Patient is alert and able to communicate but seems to be an cachectic and does not interact much which is likely secondary to her underlying severe dementia as per endorsed by the family. The patient lives with her who is also having some cognitive decline as per the family and is also apparent while discussing patient's situation with him since he he has been unable to understand or comprehend the ongoing clinical situation. Patient whole situation has been discussed with the family. case resource manager onboard for her disposition to possible [place] [facility] or other safe options family is aware of the clinical condition and current management plan Vitals/I&O/Wt Last Vital Signs Temp 98.6 F 12/20/24 11:12 Pulse 109 H 12/20/24 11:12 Resp 16 12/20/24 11:12 BP 126/76 12/20/24 11:12 Pulse Ox 95 12/20/24 11:12 O2 Del Method Nasal Cannula 12/20/24 11:12 O2 Flow Rate 2 12/20/24 10:44 FiO2 30 12/17/24 13:31 12/19/24 12/20/24 12/20/24 22:59 06:59 14:59 Intake Total 160 / 160 50 / 210 Output Total 350 / 350 400 / 400 Balance -190 / -190 50 / -140 -400 / -400 Weight last 48 hrs Weight 50.349 kg Weight 50.485 kg Physical Exam Narrative: General: Patient seems weak and cachectic with physical deconditioning and malnourishment. Patient is alert however not oriented, unable to interact as the patient is only uses few words or show facial gestures during interaction, Cardio: Normal rate rhythm S1-S2 normal no murmurs appreciated no added sounds Respiratory: Good bilateral air entry, normal vesicular breathing no wheezes and no stridor GI: Abdomen soft, nontender, nondistended, normoactive bowel sounds present all 4 quadrants, on NGT feed Neuro: Patient is alert no gross focal neurological deficit however not oriented to place and person Extremities: Peripheral finger discoloration improved mild bilateral upper and lower extremity edema. Skin: Sacral ulcer likely stage II-III without any discharge covered with intact skin and no discharge Urinary Catheter Management: Santiago Latex: Cath Placed During This Visit: yes Reason for Continuing Indwelling Catheter: Other Urinary Catheter Date of Insertion: 12/20/24 Urinary Catheter Time of Insertion: 01:29 Data 12/20/24 03:40 12/20/24 03:40 Micro: Microbiology 12/14/24 20:00 Blood Culture - Final Blood NO GROWTH AFTER 5 DAYS 12/14/24 19:49 Blood Culture - Final Blood Strep pyogenes (grp a) A&P Assessment and plan 1. Septic shock: Patient presented with shock currently resolved, On presentation she was unresponsive to fluids, hypotensive, less likely to be in cardiogenic nature based on echo results, CTPA showed pulmonary embolism but was not massive therefore obstructive shock also ruled out and started on anticoagulation and responded well without any complication - Patient having decubitus ulcer therefore could be infected and leading to septic shock, surgery onboard and recommended for no intervention since she carries more risks than benefits based on her nutritional status, bed ridden state. - Continue on Zosyn since MRSA is negative, to complete 14 days of antibiotics till 12/28/24 - Repeat blood cultures prelim negative, 1 bottle showed strep pyogenes possible contamination and also the patient is on appropriate antibiotics based on sensitivity - Maintain MAP above of 60-65 - in case of further deterioration the family agreed and expressed wishes of her as well to be kept as DNR and not to proceed with any reintubation. 2. Pulmonary embolism: Patient risks factors included bedridden and sacral decubitus ulcer On apixaban 5 mg daily Echocardiogram showed mild diminised EF: 45-50%, normal LV size and mild RV dilation 3. Thrombocytopenia: resolved Currently stable, most likely was related to septic shock Continue to monitor 4. Macrocytic anemia: Anemia workup revealed folate deficiency Folic acid replacement provided Continue to monitor CBC If the patient drops below 7, transfuse 1 unit of PRBC and stat CT angio abdomen pelvis with high risk consent to look for any source of bleeding 5. Sacral decubitus ulcer: Continue with antibiotics Zosyn for possible decubitus ulcer infection. blood cultures negative so far, is afebrile, possible descalation after final report Surgery on board and no intervention at the moment since it is not grossly infected and can be observed with wound care, and no intervention since it carries more risks than benefits based on the patient clinical physiological condition and nutritional status 6. Acute renal failure: On initial presentation likely related to hypotension and dehydration with elevated BUN to creatinine ratio. After fluid resuscitation and management, having adequate urinary output Currently improving Adequate intake and output monitoring 7. Right leg swelling: Bilateral lower venous duplex did not reveal any DVT Right leg swelling improving subsequently 8. Unresponsive: Resolved CT head at the time of admission was unremarkable for any acute intracranial pathology EEG and follow the reports 9. Adrenal failure: And initial presentation, there was possibility of adrenal insufficiency related to septic shock/critical illness related corticosteroid insufficiency (CIR CI) since the patient is not having adequate response to vasopressors. Random cortisol was in normal range she was started on steroids and currently off vasopressors, weaning off to hydrocortisone daily tomorrow and then to stop. TSH was mildly high with low T3 and T4, initiated levothyroxine 50 mcg daily as the patient last dose was unknown and the family reported that she had history of hypothyroidism 10. UTI (urinary tract infection): The patient initial UA was showing dark yellow and cloudy appearance positive leukoesterase but there were no WBCs or nitrates positive less likely of UTI however considering patient having septic shock, continue Zosyn for total 14 days ( 12/28/24) and later to descalate based on blood cultures sensitivity prelim Blood cultures so far negative 11. Fecal impaction: Surgery on board and enema provided Monitor intake and output 12. Hypothermia: resolved Maintain normothermia 13. Malnourished: dietitian consulted and to follow the recommendations 14. Increased oropharyngeal secretions: Mucomyst and gentle chest physiotherapy Glycopyrrolate as needed for the secretions 15. Encounter for screening involving social determinants of health (SDoH): The patient lives with her who is also having some cognitive decline as per the family and is also apparent while discussing patient's situation with him since he he has been unable to understand or comprehend the ongoing clinical situation. Patient whole situation has been discussed with the family. case resource manager onboard for her disposition to possible [place] [facility] or other safe options family is aware of the clinical condition and current management plan PDMP PDMP Reviewed: Not Reviewed Attestations Medical Necessity Statement*: Dea Belcher's hospital stay will require greater than 2 midnights for sepsis. initially septic shock and resolved however having multiple comorbidities including sacral decubitus ulcer, acute renal failure/resolving Need adequate disposition, case resource manager on board Time Spent in Patient Care: 16 - 35 minutes (>than 50% of time spent in counselling and/or direct pt care on unit). Other Attestations: Patient condition has been discussed at length with the patient/family, I have independently reviewed the chart labs imaging/diagnostics/EKG. the goals of care and code status with the patient/family/NOK/legal marketing development representative, and documented accordingly. The patient/family has been informed about the current condition and further plan of care. Agreed with the plan of care and understood without any language barrier. Every effort was made to ensure accuracy of radio repairman. Any obvious errors or omissions should be clarified with the author of the document. Coding Level of Care Code 67451 Diagnoses Septic shock A41.9; R65.21 Pulmonary embolism I26.99 Thrombocytopenia D69.6 Macrocytic anemia D53.9 Sacral decubitus ulcer L89.159 Acute renal failure N17.9 Right leg swelling M79.89 Unresponsive R41.89 Adrenal failure E27.49 UTI (urinary tract infection) N39.0 Fecal impaction K56.41 Hypothermia T68.XXXA Malnourished E46 Increased oropharyngeal secretions K11.7 Encounter for screening involving social determinants of health (SDoH) Z13.9
--- NOTE | 2024-12-20 11:52 | PC.SLP ---
Patient was not seen for speech therapy today due to patient status. Per nursing, patient was not clearing secretions, not able to swallow, not producing cough, and not cooperating in oral care. Patient is at significant risk for aspiration.
[2024-12-20] MEDS: acetylcysteine (Mucomyst) 200 mg/mL SDV 4 mL 100 MG INHALATION (13:12)
--- NOTE | 2024-12-20 18:37 | PC.NURSE ---
SHift Summary: Initial concerns for aspiration which resolved. Otherwise uneventful. Transitioned to comfort measures.
[2024-12-21] VITALS (8 sets, daily range): BP systolic 110–156; BP diastolic 71–96; PULSE 98–122; RESP 17–19; TEMP 36.6–37.1; O2SAT 93–96
--- NOTE | 2024-12-21 08:34 | P.PN_ITS ---
Subjective 2 Subjective: Patient s/p extubation , doing well Patient currently on hospice after discussing with the family that agreed upon keeping the patient on hospice. Family has been thoroughly explained about the management and its complications, quality of life, poor prognosis prognosis and overall. Vitals/I&O/Wt Last Vital Signs Temp 98.5 F 12/21/24 07:58 Pulse 115 H 12/21/24 08:10 Resp 18 12/21/24 08:10 BP 145/84 12/21/24 07:58 Pulse Ox 93 12/21/24 08:10 O2 Del Method Nasal Cannula 12/21/24 08:10 O2 Flow Rate 2.5 12/21/24 08:10 FiO2 30 12/17/24 13:31 12/20/24 12/21/24 12/21/24 22:59 06:59 14:59 Intake Total 276 / 386 Output Total 425 / 825 150 / 975 Balance -149 / -439 -150 / -589 Weight last 48 hrs Weight 50.349 kg Physical Exam 2 Narrative: General: Patient seems weak and cachectic with physical deconditioning and malnourishment. Patient is alert however not oriented, unable to interact as the patient is only uses few words or show facial gestures during interaction, she was lying on one side and just says always yeah when taken her name but no other words, Cardio: mild tachycardia, S1-S2 normal no murmurs appreciated no added sounds Respiratory: Good bilateral air entry, normal vesicular breathing no wheezes and no stridor GI: Abdomen soft, nontender, nondistended, normoactive bowel sounds present all 4 quadrants, on NGT feed Neuro: Patient is alert no gross focal neurological deficit however not oriented to place and person Extremities: Peripheral finger discoloration improved, adequate pulses and perfusion observed. Skin: Sacral ulcer likely stage II-III without any discharge covered with intact skin and no discharge Urinary Catheter Management: Santiago Latex: Cath Placed During This Visit: yes Reason for Continuing Indwelling Catheter: Other Urinary Catheter Date of Insertion: 12/20/24 Urinary Catheter Time of Insertion: 01:29 Data 12/20/24 03:40 12/20/24 03:40 Micro: Microbiology 12/14/24 20:00 Blood Culture - Final Blood Strep pyogenes (grp a) 12/14/24 19:49 Blood Culture - Final Blood Strep pyogenes (grp a) A&P Assessment and plan 1. Septic shock: Patient presented with shock currently resolved, On presentation she was unresponsive to fluids, hypotensive, less likely to be in cardiogenic nature based on echo results, CTPA showed pulmonary embolism but was not massive therefore obstructive shock also ruled out and started on anticoagulation and responded well without any complication - Patient having decubitus ulcer therefore could be infected and leading to septic shock, surgery onboard and recommended for no intervention since she carries more risks than benefits based on her nutritional status, bed ridden state. -Continue hospice care - in case of further deterioration the family agreed and expressed wishes of her as well to be kept as DNR and not to proceed with any reintubation. 2. Pulmonary embolism: Patient risks factors included bedridden and sacral decubitus ulcer On apixaban 5 mg daily however patient is unable to swallow and is at risk of choking. Continue to monitor and continue on hospice care Echocardiogram showed mild diminised EF: 45-50%, normal LV size and mild RV dilation 3. Thrombocytopenia: resolved Currently stable, most likely was related to septic shock Monitor for any obvious signs of bleeding 4. Macrocytic anemia: Anemia workup revealed folate deficiency Folic acid replacement provided 5. Sacral decubitus ulcer: Patient received 5 days of Zosyn blood cultures negative so far, is afebrile, discontinue Zosyn Surgery on board and no intervention at the moment since it is not grossly infected and can be observed with wound care, and no intervention since it carries more risks than benefits based on the patient clinical physiological condition and nutritional status 6. Acute renal failure: On initial presentation likely related to hypotension and dehydration with elevated BUN to creatinine ratio. After fluid resuscitation and management, having adequate urinary output Currently improving Adequate intake and output monitoring 7. Right leg swelling: Bilateral lower venous duplex did not reveal any DVT Right leg swelling improving subsequently 8. Unresponsive: Resolved CT head at the time of admission was unremarkable for any acute intracranial pathology EEG 9. Adrenal failure: And initial presentation, there was possibility of adrenal insufficiency related to septic shock/critical illness related corticosteroid insufficiency (CIR CI) since the patient is not having adequate response to vasopressors. Random cortisol was in normal range she was started on steroids and currently off vasopressors, weaned off from steroids currently off TSH was mildly high with low T3 and T4, started on levothyroxine 50 mcg daily as the patient last dose was unknown and the family reported that she had history of hypothyroidism, however patient unable to swallow adequately and therefore at risk of choking Follow-up with the speech Once stable then to continue on oral medications 10. UTI (urinary tract infection): The patient initial UA was showing dark yellow and cloudy appearance positive leukoesterase but there were no WBCs or nitrates positive less likely of UTI however considering patient having septic shock, Patient repeat blood cultures to date negative and received 5 days of Zosyn Currently afebrile 11. Fecal impaction: Surgery on board and enema provided Monitor intake and output 12. Hypothermia: resolved Maintain normothermia 13. Malnourished: dietitian consulted and to follow the recommendations 14. Increased oropharyngeal secretions: Mucomyst and gentle chest physiotherapy Glycopyrrolate as needed for the secretions 15. Encounter for screening involving social determinants of health (SDoH): The patient lives with her who is also having some cognitive decline as per the family and is also apparent while discussing patient's situation with him since he he has been unable to understand or comprehend the ongoing clinical situation. Patient whole situation has been discussed with the family. rehabilitation case coordinator onboard. The family has been informed about the current situation, critical condition, poor quality of life and imminent mortality considering patient frailty advanced dementia malnourishment physical deconditioning and bedridden state and agreed with comfort care and removal of the NGT with pleasure feeds market relationship manager also on board and a thorough discussion at length has been done Extended discussion has been done with the family/ about his grim prognosis and further complication with risk and benefits of the treatment. After thorough discussion and counseling the family/ was done without any language barrier, agreed for DNR and comfort measures considering the patient critical illness and clinical deterioration, physical deconditioning, bedridden state, severe malnourishment, advanced dementia and compromised quality of life. The family/ wishes are respected and carried on with respect PDMP PDMP Reviewed: Not Reviewed Attestations 2 Medical Necessity Statement*: Dea Belcher's hospital stay will require greater than 2 midnights for arrangement of home hospice over the weekdays Time Spent in Patient Care: 16 - 35 minutes (>than 50% of time sp ent in counselling and/or direct pt care on unit) . Other Attestations: Patient condition has been discussed at length with the patient/family, I have independently reviewed the chart labs imaging/diagnostics/EKG. the goals of care and code status with the patient/family/NOK/legal patient accounting representative, and documented accordingly. The patient/family has been informed about the current condition and further plan of care. Agreed with the plan of care and understood without any language barrier. Every effort was made to ensure accuracy of redevelopment specialist. Any obvious errors or omissions should be clarified with the author of the document. Coding Level of Care Code 50901 Diagnoses Septic shock A41.9; R65.21 Pulmonary embolism I26.99 Thrombocytopenia D69.6 Macrocytic anemia D53.9 Sacral decubitus ulcer L89.159 Acute renal failure N17.9 Right leg swelling M79.89 Unresponsive R41.89 Adrenal failure E27.49 UTI (urinary tract infection) N39.0 Fecal impaction K56.41 Hypothermia T68.XXXA Malnourished E46 Increased oropharyngeal secretions K11.7 Encounter for screening involving social determinants of health (SDoH) Z13.9
--- NOTE | 2024-12-21 15:44 | PC.NURSE ---
This nurse assumed care at this time, off giving nurse reported plan for patient is to transition to comfort care
[2024-12-22] VITALS (10 sets, daily range): BP systolic 118–151; BP diastolic 69–79; PULSE 82–121; RESP 16–20; TEMP 36.6–37; O2SAT 95–99
[2024-12-22] MEDS: HYDROmorphone 0.5 MG/0.5 ML INJ 0.4 MG IVP ×2 (08:57→13:59)
--- NOTE | 2024-12-22 10:32 | PM.PN ---
Subjective Subjective: 74-year-old female now on comfort [facility] care of [facility] daughter and granddaughter. Daughter is a retired EXPERIMENTAL TECHNICIAN and granddaughter is an location and measurement technician Vitals/I&O/Wt Last Vital Signs Temp 98.6 F 12/22/24 04:00 Pulse 121 H 12/22/24 07:40 Resp 20 H 12/22/24 07:40 BP 151/70 12/22/24 07:40 Pulse Ox 95 12/22/24 07:40 O2 Del Method Nasal Cannula 12/22/24 07:40 O2 Flow Rate 3 12/22/24 07:40 FiO2 30 12/17/24 13:31 12/21/24 12/22/24 12/22/24 22:59 06:59 14:59 Output Total 625 / 625 Balance -625 / -625 Weight last 48 hrs Weight 52.118 kg Physical Exam Narrative: General well-developed chronically ill-appearing female awake. Mentation she is moving her extremities and responds yes intermittently to repeated verbal questioning but does not otherwise answer questions with any other words. She does not follow commands. CV regular rate and rhythm Lungs clear to auscultation not coordinated exam Abdomen soft nontender Urinary Catheter Management: Santiago Latex: Cath Placed During This Visit: yes Reason for Continuing Indwelling Catheter: Acute Urinary Retention or Obstruction Urinary Catheter Date of Insertion: 12/20/24 Urinary Catheter Time of Insertion: 01:29 Data 12/20/24 03:40 12/20/24 03:40 Micro: Microbiology 12/16/24 15:32 Blood Culture - Final Blood NO GROWTH AFTER 5 DAYS 12/16/24 15:34 Blood Culture - Final Blood NO GROWTH AFTER 5 DAYS A&P PDMP PDMP Reviewed: Not Reviewed Attestations Medical Necessity Statement*: Patient is on comfort care and we are waiting transport and home health for her to go to [place]. This is anticipated today or tomorrow Coding Level of Care Code 52808 Time Spent (min) 35 Comment If discharged today see discharge summary from today
--- NOTE | 2024-12-22 10:37 | P.DS_ITS ---
Discharge Providers Date of Admission: 12/15/24 00:10 Date of Discharge: December 23, 2024 Attending Provider at Admission: Leticia Espinosa MD Attending Provider at Discharge: Kevin Pa MD Consults: Pj Smallwood MD General Surgery Primary Care Provider: Mitchel Hamilton MD Diagnoses at Discharge Discharge Diagnosis 1. Septic shock: Details from hospital stay: Patient was admitted with a sacral decubitus ulcer, severe malnutrition, adrenal failure, hypothyroidism severe dehydration and acute kidney injury due to prerenal azotemia. Blood cultures were +2 of 2 for strep pyogenes. Patient was aggressively treated with antibiotics IV fluids pressors and stress dose steroids. She improved and transferred to the floor. Family subsequently requested comfort care and she was changed to comfort measures only 2. Cachexia: Details from hospital stay: Patient admitted with severe malnutrition underweight with albumin of 1.9. She was given albumin for hypotension and sepsis. She is unable to take oral food and would require a feeding tube. It was ultimately decided by family that chronic tube feeds in a patient who no longer recognized her family would not be appropriate and she was made comfort care 3. Encounter for screening involving social determinants of health (SDoH): Details from hospital stay: As above patient was aggressively treated for sepsis and prerenal azotemia as well as cachexia with tube feeds, IV albumin, IV fluids, IV steroids and pressors and recovered. She had fecal impaction and sacral decubitus ulcer also treated with local wound care and enemas plus lactulose. Patient recovered. She would require long-term feeding tube and was not recognizing family or able to eat safely based on swallow eval. It was determined by family that she should be made comfort care and she is discharging to daughter and granddaughter's home in [place] for comfort care and end-of-life care 4. Thrombocytopenia: Details from hospital stay: Mild and associated with sepsis and antibiotics recovered to normal 208 on 12/20/2024 5. Pulmonary embolism: Details from hospital stay: Found on initial CTA of chest and treated with anticoagulants until family switched her to comfort care 6. Macrocytic anemia: Details from hospital stay: B12 high, folic acid was deficient 7. Sacral decubitus ulcer: Details from hospital stay: Patient presented with decubitus ulcer from immobility at home 8. Acute renal failure: Details from hospital stay: Due to severe prerenal azotemia recovered as expected with IV fluids 9. Right leg swelling: Details from hospital stay: No DVT 10. Adrenal failure: Details from hospital stay: Stress dose steroids were given for refractory hypotension, hypoglycemia, hypothermia and obtundation but later stopped due to family's request for comfort care 11. Fecal impaction: Details from hospital stay: Resolved with enemas and lactulose 12. Dementia: 13. Hypothyroidism, unspecified: Reason for Visit Reason for Visit: UNRESPONSIVE Brief History: Dea Belcher is a 74 year old female with no significant medical history patient lives at home with her . The called 911 because of patient's obtundation, unresponsiveness when the EMS arrived blood pressure was 70/20 patient was unresponsive. Patient was covered with thick dried stools. Patient was taken to the ED. At the ED blood pressure was 60/40 following a liter bolus given by the EMS. Patient received another liter in the emergency room bolus GSC scale was 4 patient was intubated. Systolic blood pressure came up to 95/65. Patient is still not responsive. Patient was started on Levophed and was placed on propofol for tube tolerance. EKG showed less than half a millimeter ST elevation in lead 2, 3 and aVL and an interval EKG was done it showed more ST elevation. Case discussed with Dr. 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 Patient is septic. Patient had received a dose of vancomycin and Zosyn in the emergency room following a blood culture patient was sent to ICU for further evaluation. Patient had unstageable macerated decubitus of the sacral may need debridement and in that area stools were cleaned off where she was very soiled. Patient also has pustular skin lesion all over the body especially the legs. Patient creatinine went up to 2.7 from a normal creatinine of 0.9 on 10/27/2024. Hospital Course Hospital Course 74-year-old female under the care and living with her who also has dementia. Patient had not been eating and lost 30 pounds weight at home became unresponsive. She had decubitus ulcers and cachexia. She was found to have hypothermia, hypoglycemia and hypotension consistent with adrenal failure. She was also markedly dehydrated. This was aggressively replaced with IV fluids weaning off her pressors. She required hydrocortisone for adrenal failure as well as levothyroxine IV to replace oral levothyroxine that she had not been recently taking and had a TSH of 5.93. Patient was weaned off the vent but continued to be demented and unable to converse. Family had wanted full treatment initially respecting the wishes of patient's demented but ultimately with need for long term and unable to return home they elected for comfort care as the patient did not interact or follow any commands. At this time she is discharging to the care of her daughter and granddaughter. Physical Exam Narrative: General well-developed chronically ill-appearing female awake. Mentation she is moving her extremities and responds yes intermittently to repeated verbal questioning but does not otherwise answer questions with any other words. She does not follow commands. She has spontaneous movement of her upper extremities mildly purposeful but not directable and does not follow commands CV regular rate and rhythm Lungs clear to auscultation not coordinated exam Abdomen soft nontender Urinary Catheter Management: Santiago Latex: Cath Placed During This Visit: yes Reason for Continuing Indwelling Catheter: Acute Urinary Retention or Obstruction Urinary Catheter Date of Insertion: 12/20/24 Urinary Catheter Time of Insertion: 01:29 Discharge Data Studies Completed and Pending Completed Studies During Hospitalization Category Date Time Status CT abdomen pelvis wo con [id number] Stat Cat Scan 12/14/24 22:[address] angio chest PE protcl [id number] Stat Cat Scan 12/15/24 09:[address] head wo con* [id number] Stat Cat Scan 12/14/24 19:46 Completed XR chest 1V portable [id number] Routine Exams 12/16/24 05:39 Completed XR chest 1V portable [id number] Routine Exams 12/17/24 21:53 Completed XR chest 1V portable [id number] Stat Exams 12/14/24 19:46 Completed XR chest 1V portable [id number] Stat Exams 12/17/24 08:26 Completed XR chest 1V portable [id number] Stat Exams 12/17/24 17:56 Completed XR shoulder RT 1V [id number] Routine Exams 12/19/24 14:32 [place] [id number] Routine Ultrasound 12/16/24 12:51 [place] [id number] Routine Ultrasound 12/16/24 12:51 Completed CV. echo complete* [id number] Routine Ultrasound 12/15/24 08:56 Completed Radiology Impressions Head CT 12/14/24 19:46 IMPRESSION: 1. No acute intracranial finding. 2. Chronic small-vessel ischemic changes and atrophy. Abdomen/Pelvis CT 12/14/24 22:06 IMPRESSION: 1. Moderately sized rectal stool ball. Correlate for fecal impaction. There is some presacral fluid and stranding which may be related to superimposed stercoral colitis. 2. Small pericardial effusion. 3. Age indeterminate T10 and T11 vertebral body compression fractures. Correlate with site specific tenderness to assess acuity. Chest CTA 12/15/24 09:00 IMPRESSION: 1. No central pulmonary embolism. 2. Single nonocclusive pulmonary filling defect in a segmental branch of the RIGHT lower lobe. 3. No RIGHT heart strain. 4. Normal position of the endotracheal tube and nasogastric tube. 5. Mild dependent changes at the lung bases and very slight interstitial thickening throughout both lungs but no pneumonia. 6. No pneumothorax. 7. Mesenteric and soft tissue anasarca. 8. Age-indeterminate T11 and T12 50% compression fractures. New since 07/11/2020. Duplex Scan Lower Extremity Artery 12/16/24 12:51 IMPRESSION: Mildly reduced ankle-brachial index with patent arterial flow to the calf arteries. Monophasic waveforms below the left common femoral artery suggests an unidentified proximal SFA narrowing, which does not reduce velocity flow. Venous Duplex 12/16/24 12:51 IMPRESSION: 1. No evidence of deep vein thrombosis. 2. Technically difficult study due to patient immobility. Chest X-Ray 12/17/24 21:53 IMPRESSION: 1. Appropriately seated enteric tube. 2. Findings which could be outside sales representative insurance of mild vascular congestion or interstitial pneumonia. No pneumonic consolidation. Shoulder X-Ray 12/19/24 14:32 IMPRESSION: No acute abnormality. Laboratory Results WBC 10.29 10^3/uL (3.29-11.43) 12/20/24 03:40 RBC 2.52 10^6/uL (3.85-5.65) L 12/20/24 03:40 Hgb 8.20 g/dL (11.27-16.99) L 12/20/24 03:40 Hct 25.7 % (36-47) L 12/20/24 03:40 MCV 102.0 fl (85-98) H 12/20/24 03:40 MCH 32.5 pg (27-33) 12/20/24 03:40 MCHC 31.9 g/dL (30-55) 12/20/24 03:40 RDW 14.6 % (12.1-15.1) 12/20/24 03:40 Plt Count 208 10^3/cmm (157-399) 12/20/24 03:40 MPV 11.6 fL (7.4-10.4) H 12/20/24 03:40 Neut % (Auto) 89.5 % 12/20/24 03:40 Lymph % (Auto) 4.7 % 12/20/24 03:40 Alexander % (Auto) 3.5 % 12/20/24 03:40 Eos % (Auto) 0.0 % 12/20/24 03:40 Baso % (Auto) 0.2 % 12/20/24 03:40 Neut # (Auto) 9.21 10^3/uL (1.8-7.7) H 12/20/24 03:40 Lymph # (Auto) 0.5 10^3/uL (0.8-4.8) L 12/20/24 03:40 Alexander # (Auto) 0.4 10^3/uL (0.2-0.9) 12/20/24 03:40 Eos # (Auto) 0.0 10^3/uL (0.0-0.8) 12/20/24 03:40 Baso # (Auto) 0.0 10^3/uL (0.0-0.1) 12/20/24 03:40 Nucleated RBC % (auto) 0 % 12/20/24 03:40 Total Counted 100 (0-100) 12/17/24 04:05 Atypical Lymphs % 0.0 % (0-5) 12/17/24 04:05 Absolute Neutrophils 13.3 10^3/cmm (1.4-6.5) H 12/17/24 04:05 Segmented Neutrophils 85 % 12/17/24 04:05 Band Neutrophils 10.0 % 12/17/24 04:05 Absolute Lymphocytes 0.6 10^3/cmm (1.2-3.4) L 12/17/24 04:05 Lymphocytes (Manual) 4 % 12/17/24 04:05 Monocytes (Manual) 0.0 % 12/17/24 04:05 Absolute Monocytes 0.0 10^3/cmm (0.1-0.6) L 12/17/24 04:05 Eosinophils (Manual) 0 % 12/17/24 04:05 Absolute Eosinophils 0.0 10^3/cmm (0.0-0.7) 12/17/24 04:05 Basophils (Manual) 0.0 % 12/17/24 04:05 Absolute Basophils 0.0 10^3/cmm (0.0-0.2) 12/17/24 04:05 Metamyelocytes 2.0 % 12/14/24 19:49 Myelocytes 1.0 % 12/17/24 04:05 Nucleated RBCs # 0.0 /100WBC 12/20/24 03:40 Platelet Estimate Decreased (Normal) L 12/17/24 04:05 Hypochromasia Trace 12/14/24 19:49 Anisocytosis Trace 12/14/24 19:49 Microcytosis Trace 12/17/24 04:05 Macrocytosis 1+ H 12/14/24 19:49 [place] Cells 1+ H 12/17/24 04:05 PT 15.10 SECONDS (12.1-14.9) H 12/20/24 03:40 INR 1.11 (0.8-1.2) 12/20/24 03:40 APTT 68.3 SECONDS (23.9-36.7) H 12/18/24 09:32 Specimen Type Arterial 12/17/24 11:10 Sample Site Brachial, right 12/17/24 11:10 ABG pH 7.38 (7.35-7.45) 12/17/24 11:10 ABG pCO2 36.0 mmHg (35-45) 12/17/24 11:10 ABG pO2 119.0 mmHg (80.0-100.0) H 12/17/24 11:10 ABG PO2/FiO2 Ratio 396 12/17/24 11:10 ABG HCO3 21.1 mmol/L (22-26) L 12/17/24 11:10 ABG O2 Saturation 99.1 12/17/24 11:10 ABG Base Excess -3.6 mmol/L (-2.0-2.0) L 12/17/24 11:10 Christian Test N/a 12/17/24 11:10 A-a O2 Gradient 6.4 mmHg (5-10) 12/17/24 11:10 Hematocrit 26.0 % (37-47) L 12/17/24 11:10 Hgb O2 Saturation 97.1 % (95-100) 12/17/24 11:10 Carboxyhemoglobin 0.8 %THgb (0.4-20.1) 12/17/24 11:10 Methemoglobin 1.2 % (0.4-1.5) 12/17/24 11:10 Total Hemoglobin 8.5 g/dL (12-16) L 12/17/24 11:10 Sodium 142.0 mmol/L (131-143) 12/17/24 11:10 Potassium 4.7 mmol/L (3.5-5.0) 12/17/24 11:10 Glucose 148.0 mg/dL (70-115) H 12/17/24 11:10 Ionized Calcium 1.2 mmol/L (1.1-1.4) 12/17/24 11:10 O2 Delivery Device Vent 12/17/24 11:10 FiO2 30.0 % 12/17/24 11:10 Tidal Volume 0.28 12/14/24 19:50 PEEP 5.0 cmH20 12/17/24 11:10 Flower Picker ID [id number] 12/17/24 11:10 Sodium 143 mmol/L (136-145) 12/20/24 03:40 Potassium 4.4 mmol/L (3.5-5.1) 12/20/24 03:40 Chloride 111 mmol/L (98-107) H 12/20/24 03:40 Carbon Dioxide 23 mmol/L (22-29) 12/20/24 03:40 Anion Gap 13.4 (5-19) 12/20/24 03:40 BUN 44 mg/dL (8-23) H 12/20/24 03:40 Creatinine 1.2 mg/dL (0.5-0.9) H 12/20/24 03:40 GFR Calculation Not Reportable 12/20/24 03:40 Glucose 160 mg/dL (65-115) H 12/20/24 03:40 POC Glucose 131 mg/dL (70-110) H 12/21/24 11:31 Calculated Osmolality 311 mOsm/kg (285-295) H 12/20/24 03:40 Lactic Acid 2.3 mmol/L (0.5-2.2) H 12/14/24 19:49 Lactic Acid (Sepsis) 1.7 mmol/L (0.5-2.2) 12/14/24 22:48 Lactate 1.7 mmol/L (0.5-2.2) 12/16/24 01:20 Calcium 7.5 mg/dL (8.5-10.5) L 12/20/24 03:40 Phosphorus 3.0 mg/dL (2.5-4.5) 12/16/24 01:20 Magnesium 1.7 mg/dL (1.7-2.3) 12/16/24 01:20 Iron 17 ug/dL (37-145) L 12/17/24 04:05 TIBC 60 mcg/dl 12/17/24 04:05 % Saturation 28.3 % (20-50) 12/17/24 04:05 Unsat Iron Binding 43 ug/dL (112-347) L 12/17/24 04:05 Ferritin 1413 ng/mL (15-150) H 12/17/24 04:05 Total Bilirubin 0.3 mg/dL (0.15-1.2) 12/20/24 03:40 AST 30 U/L (0-32) 12/20/24 03:40 ALT 27 U/L (0-33) 12/20/24 03:40 Alkaline Phosphatase 78 U/L (35-105) 12/20/24 03:40 Creatine Kinase 330 U/L (26-192) H* 12/16/24 01:20 Troponin T Baseline 40 ng/L (0-10) H 12/14/24 19:49 Troponin T 120 Minute 49.03 ng/L (0-10) H 12/14/24 21:42 Delta Troponin T 9.03 ABS# (0-10) 12/14/24 21:42 Troponin T Hi Sens 6Hr 51.22 ng/L (0-10) H 12/15/24 03:25 Troponin T Hi Sens 6Hr Delta 11.22 ng/L (0-12) 12/15/24 03:25 C-Reactive Protein 68.8 mg/L (0.0-4.9) H 12/14/24 19:49 Total Protein 5.0 g/dL (6.6-8.7) L 12/20/24 03:40 Albumin 2.1 g/dL (3.5-5.2) L 12/20/24 03:40 Globulin 2.9 g/dL (1.3-4.6) 12/20/24 03:40 Vitamin B12 > 2000 pg/mL (232-1245) H 12/17/24 04:05 Folate 2.9 ng/mL (4.8-37.3) L 12/16/24 01:20 TSH 5.93 uIU/mL (0.27-4.20) H 12/16/24 01:20 Free T4 0.65 ng/dL (0.82-1.77) L 12/16/24 01:20 Free T3 1.0 PG/ML (2.0-4.4) L 12/16/24 01:20 Random Cortisol 16.39 ug/dL (2.47-19.5) 12/16/24 01:20 Urine Color Yellow (Yellow) 12/16/24 05:30 Urine Appearance Turbid (CLEAR) A 12/16/24 05:30 Urine pH 5.0 (5-7) 12/16/24 05:30 Ur Specific Council 1.034 (1.005-1.030) H 12/16/24 05:30 Urine Protein 1+ (Negative) A 12/16/24 05:30 Urine Glucose (UA) Negative (Normal) 12/16/24 05:30 Urine Ketones Negative (Negative) 12/16/24 05:30 Urine Blood 1+ (Negative) A 12/16/24 05:30 Urine Nitrate Negative (Negative) 12/16/24 05:30 Urine Bilirubin Negative (Negative) 12/16/24 05:30 Urine Urobilinogen 1.0 mg/dL (Negative) 12/16/24 05:30 Ur Leukocyte Esterase Trace (Negative) A 12/16/24 05:30 Urine RBC 0-2 /hpf (0-2) 12/16/24 05:30 Urine WBC 6-10 /hpf (0-5) 12/16/24 05:30 Ur Squamous Epith Cells 6-10 /hpf (0-5) 12/16/24 05:30 Uric Acid Crystals 10-15 /hpf H 12/16/24 05:30 Amorphous Sediment Not Reportable 12/16/24 05:30 Urine Bacteria None seen /hpf (NONE) 12/16/24 05:30 Hyaline Casts 4.11 /lpf 12/16/24 05:30 Fine Granular Casts 0-4 /lpf H 12/14/24 22:00 Nasal MRSA (PCR) Not detected (Not Detecte) 12/16/24 15:00 Random Vancomycin 16.3 ug/mL (20.0-40.0) L 12/18/24 02:25 Vitals Last Vital Signs Temp 98.6 F 12/22/24 04:00 Pulse 121 H 12/22/24 07:40 Resp 20 H 12/22/24 07:40 BP 151/70 12/22/24 07:40 Pulse Ox 95 12/22/24 07:40 O2 Del Method Nasal Cannula 12/22/24 07:40 O2 Flow Rate 3 12/22/24 07:40 FiO2 30 12/17/24 13:31 Discharge Plan Discharge Patient Disposition: Home Condition: Critical Prescriptions: New morphine concentrate 10 mg/0.5 mL Syringe 2 - 10 mg sublingual Q2H PRN (Reason: Moderate To Severe Pain or SOB) Qty: 20 0RF bisacodyl 10 mg Suppository 10 mg NE DAILY PRN (Reason: Abdominal Discomfort) Qty: 12 0RF Tears Lubricant Eye Drop 0.5 % Drops 2 drp eye-both Q2H PRN (Reason: Dry Eye(S)) Qty: 15 0RF Blistex Medicated 0.6-0.5-1.1-0.5 % Ointment 1 ea topical Q2H PRN (Reason: Dry Lips) Qty: 6 0RF Lanolin (HPA) 100 % Cream 1 applic topical PRN PRN (Reason: Dryness) Qty: 7 0RF acetaminophen 325 mg Tablet 650 mg PO Q4H PRN (Reason: Temperature greater than 100.5) Qty: 30 0RF acetaminophen 650 mg Suppository 650 mg NE Q4H PRN (Reason: Temperature greater than 100.5) Qty: 12 0RF albuterol sulfate 2.5 mg /3 mL (0.083 %) Solution For Nebulization 2.5 mg inhalation Q4H.RESPIRATORY PRN (Reason: Shortness Of Breath) Qty: 75 0RF atropine 1 % Drops 3 drp sublingual Q4H PRN (Reason: Excessive Secretions, Rattling) Qty: 2 0RF Continued ondansetron 4 mg tablet,disintegrating 4 mg PO Q6H PRN (Reason: nausea and vomiting) Qty: 14 0RF Discontinued nitroglycerin [Nitrostat] 0.4 mg tablet, sublingual 0.4 mg SUBLINGUAL Q5M PRN (Reason: Chest Pain) Vitamin B-12 2,500 mcg tablet, sublingual 2,500 mcg SUBLINGUAL DAILY@0600 Qty: 90 3RF isosorbide mononitrate 30 mg tablet extended release 24 hr 30 mg PO BID@0600,1800 Qty: 60 0RF Rx Instructions: MUST have follow-up for further refills metoprolol succinate 25 mg tablet extended release 24 hr 25 mg PO DAILY@0600 Qty: 60 0RF hydrocodone-acetaminophen 5-325 mg tablet 1 tab PO Q6H PRN (Reason: pain) Qty: 14 0RF primidone 50 mg tablet 50 mg PO DAILY propranolol 60 mg capsule,extended release 24 hr 60 mg PO DAILY buspirone 7.5 mg tablet 7.5 mg PO BID loratadine [Claritin] 10 mg tablet 10 mg PO DAILY memantine 10 mg tablet 10 mg PO DAILY duloxetine 30 mg capsule,delayed release(DR/EC) 30 mg PO DAILY Rx Instructions: along with 60mg to= 90mg total duloxetine 60 mg capsule,delayed release(DR/EC) 60 mg PO DAILY Rx Instructions: along with 30mg to=90mg total Discharge Order = DC NOW: Discharge Order (Routine); Ordered 12/23/24 Ordered By: Kevin Pa Referrals: Mitchel Hamilton MD [Primary Care Provider, Internal Medicine] Discharge Diet: Soft Mechanical Discharge Activity: Resume usual activity Patient Instructions: Altered Mental Status (ED), Opioid Safety, Patient Portal & Sudeep Instructions Activity Restrictions/Additional Instructions: Comfort care. Keep patient clean and comfortable Discharge Attestations Time Spent in Discharge Care*: greater than 30 min Time Spent in Smoking Cessation: Patient is not a smoker Quality Metrics Clinical Quality Measures [ Venous Thromboembolism { Contraindication to Overlap Therapy: Drug declined by patient; VTE Discharge Education: Other; Deep Vein Thrombosis/Pulmonary Embolism Present on Admission: Yes; Contraindication to Pharm VTE Prophylaxis: Drug declined by patient;}] Coding Level of Care Code 91438 Diagnoses Septic shock A41.9; R65.21 Cachexia R64 Encounter for screening involving social determinants of health (SDoH) Z13.9 Thrombocytopenia D69.6 Pulmonary embolism I26.99 Macrocytic anemia D53.9 Sacral decubitus ulcer L89.159 Acute renal failure N17.9 Right leg swelling M79.89 Adrenal failure E27.49 Fecal impaction K56.41 Dementia F03.90 Hypothyroidism, unspecified E03.9 Time Spent (min) 35
[2024-12-22] MEDS: artificial tears Op Soln 15 mL Btl 2 DROP EYE-BOTH (13:10)
--- NOTE | 2024-12-22 14:03 | PC.SOCIAL ---
*IMM Update* Pt received copy of IMM update, initialed and dated in chart.
[2024-12-22] MEDS: morphine 4 mg/mL SDV 1 mL IVP ×2 (16:26→22:24)
[2024-12-22] MEDS: LORazepam 1 MG/0.5 ML injection IVP (22:24)
[2024-12-23 03:46] VITALS: RESP 16
[2024-12-23] MEDS: blistex lip oint 7 gm Tube 1 APPLIC TOPICAL (03:46)
[2024-12-23] MEDS: glycopyrrolate 0.2 mg/mL SDV 2 mL IV (03:46)
[2024-12-23] MEDS: morphine 4 mg/mL SDV 1 mL IVP ×2 (03:46→14:32)
[2024-12-23 05:32] VITALS: PULSE 96
[2024-12-23 08:00] VITALS: BP 113/68; PULSE 98; RESP 14; TEMP 36.4; O2SAT 98
[2024-12-23] MEDS: LORazepam 1 MG/0.5 ML injection IVP (10:49)
[2024-12-23 14:00] VITALS: PULSE 107
[2024-12-23 14:32] VITALS: RESP 14
[2024-12-23 14:49] VITALS: BP 113/68; PULSE 107; RESP 14; TEMP 36.4; O2SAT 98
== END 2024-12-23 14:53 | disposition home or self-care (01) | DRG 871 ==
LOC: ER 23:44 → ICU 12-15 00:36 → MEDSURG 12-19 14:55
PROVIDERS: Student in an Organized Health Care Education/Training Program; Admitting Provider Internal Medicine; Emergency Provider Emergency Medicine; PCP Internal Medicine; Visit Provider Internal Medicine
DX: A41.9 Sepsis, unspecified organism (principal); I26.99 Other pulmonary embolism without acute cor pulmonale; R65.21 Severe sepsis with septic shock; N17.0 Acute kidney failure with tubular necrosis; N30.00 Acute cystitis without hematuria; E87.20 Acidosis, unspecified; R63.4 Abnormal weight loss; Z68.22 Body mass index [BMI] 22.0-22.9, adult; K56.41 Fecal impaction; L89.150 Pressure ulcer of sacral region, unstageable; Z51.5 Encounter for palliative care; D69.6 Thrombocytopenia, unspecified; D50.9 Iron deficiency anemia, unspecified; M79.89 Other specified soft tissue disorders; E27.8 Other specified disorders of adrenal gland; R68.0 Hypothermia, not associated with low environmental temperature; F03.90 Unspecified dementia, unspecified severity, without behavioral disturbance, psychotic disturbance, mood disturbance, and anxiety; E03.9 Hypothyroidism, unspecified; E86.0 Dehydration; G47.33 Obstructive sleep apnea (adult) (pediatric); I25.10 Atherosclerotic heart disease of native coronary artery without angina pectoris; I10 Essential (primary) hypertension; E78.5 Hyperlipidemia, unspecified
CPT/HCPCS: 36415; 36416; 36592; 36600; 51702; 70450; 71045; 71275; 73020; 74176; 80048; 80051; 80053; 80202; 81001; 82330; 82533; 82550; 82607; 82728; 82746; 82803; 82805; 82962; 83540; 83550; 83605; 83735; 84100; 84439; 84443; 84481; 84484; 85007; 85025; 85049; 85610; 85730; 86140; 87040; 87070; 87077; 87150; 87186; 87205; 92507; 92523; 92526; 92610; 93005; 93306; 93926; 93971; 94002; 94003; 94640; 94669; 94799; 96365; 96366; 96367; 96372; 97161; 97167; 99291; 99292; J0330; J0612; J1171; J1644; J1720; J1756; J1815; J1938; J2060; J2270; J2470; J2543; J2704; J3010; J3373; J3475; J3490; J7030; J7050; J7120; J7608; J7799; J9999; P9047